=== PATIENT | male | born 1980 | race Caucasian/White ===

== ENCOUNTER → 2016-11-10 | Outpatient (REF) | payer MEDICARE ==
[~2016-11-10] MED LIST: /HALO5TAB PO; ABIL15TA OR; ABIL5TAB OR; ALLE25CA OR; ANEX7.5T PO; BENZ1TA PO; CELE40TA PO; COGE1INJ PO; DEPA1TAB3 PO; EPSOM SALT TOP; HALO10TA PO; HALO10TA4 OR; HALO2TA PO; HYDR-2808 PO; KLON0.5T PO; NEOSPORIN TOP; NO HISTORICAL MEDS; OLAN10TA2 PO; OLAN20TA PO; PAXI20TA OR; RISP2TAB30 PO; SILVADENE TOP; TRAZ50TA2 PO; TRAZO50TA PO; ZOLO20CO PO; ZYPR10TA OR; ZYPR10TA PO; no meds
[2016-11-11 11:00] LABS: AMPHETAMINES URINE REFLEX NEGATIVE (NEGATIVE); BARBITURATES URINE REFLEX NEGATIVE (NEGATIVE); BENZODIAZEPINES URINE REFLEX NEGATIVE (NEGATIVE)
[2016-11-11 11:01] LABS: COCAINE METABOLITE URINE REFLE NEGATIVE (NEGATIVE); CONTROL LINE INT CTR LINE PRESENT; METHADONE URINE REFLEX NEGATIVE (NEGATIVE); OPIATES URINE REFLEX NEGATIVE (NEGATIVE); TRICYCLIC ANTIDEPRESS UR REFL NEGATIVE (NEGATIVE)
== END ==
LOC: M LAB REF 10:26
PROVIDERS: ATTEND Psychiatry & Neurology Psychiatry
DX: Z02.83 Encounter for blood-alcohol and blood-drug test (principal); Z79.899 Other long term (current) drug therapy
CPT/HCPCS: 80306; G0480

== ENCOUNTER 2017-01-31 15:31 | Inpatient (IN) | payer MEDICARE ==
[~2017-01-31] VITALS: Ht 157.5 cm; Wt 56.6 kg
[2017-01-31] MEDS ORDERED: diphenhydrAMINE INJ 50MG/ML VIAL (J1200) IM ONE (17:30)
[2017-01-31] MEDS ORDERED: LORazepam 2 MG/ML VIAL (J2060) IM ONE (17:30)
[2017-01-31] MEDS ORDERED: HALOPERIDOL 5 MG/ML VIAL (J1630) IM ONE (17:35)
[2017-01-31 17:37] LABS: MEAN CORPUSCULAR HEMOGLOBIN 34.3 pg (27.0-33.0); MEAN CORPUSCULAR HGB CONC 34.6 g/dl (32.0-36.5); WHITE BLOOD COUNT 11.9 K/mm3 (4.0-10.0)
[2017-01-31 18:11] LABS: ALBUMIN/GLOBULIN RATIO 0.77 (1.00-1.93); ALKALINE PHOSPHATASE 76 U/L (45-117); ALT/SGPT 39 U/L (12-78); ANION GAP 27 MEQ/L (8-16); AST/SGOT 39 U/L (15-37); BILIRUBIN,DIRECT 0.1 MG/DL (0.0-0.2); BILIRUBIN,TOTAL 0.4 MG/DL (0.2-1.0); BLOOD UREA NITROGEN 10 MG/DL (7-18); CALCIUM LEVEL 8.5 MG/DL (8.5-10.1); CARBON DIOXIDE LEVEL 12 MEQ/L (21-32); CHLORIDE LEVEL 102 MEQ/L (98-107); CREATININE FOR GFR 1.13 MG/DL (0.70-1.30); GLOMERULAR FILTRATION RATE > 60.0 (>60); GLUCOSE, FASTING 133 MG/DL (70-105); POTASSIUM SERUM 3.1 MEQ/L (3.5-5.1); SODIUM LEVEL 141 MEQ/L (136-145); TOTAL PROTEIN 9.2 GM/DL (6.4-8.2)
[2017-01-31] MEDS ORDERED: POTASSIUM CHLORIDE 10 MEQ SR TABLET PO ONE (19:00)
[2017-02-01 05:53] LABS: METHADONE URINE NEGATIVE (NEGATIVE)
[2017-02-01] MEDS ORDERED: risperiDONE 2 MG TAB PO ONE (10:45)
[2017-02-01] MEDS ORDERED: MOM 30ML SUSPENSION UDC PO PRN (14:15)
[2017-02-01] MEDS ORDERED: MAALOX 30 ML SUSP *UDC PO PRN (14:15)
[2017-02-01 16:47] VITALS: BP 120/81
[2017-02-01 17:35] LABS: MEAN CORPUSCULAR HEMOGLOBIN 33.3 pg (27.0-33.0); MEAN CORPUSCULAR HGB CONC 34.7 g/dl (32.0-36.5); RED CELL DISTRIBUTION WIDTH 11.7 % (11.5-14.5); WHITE BLOOD COUNT 6.8 K/mm3 (4.0-10.0)
[2017-02-01] MEDS: NICOTINE 21MG/24HR 1 EA TRANSDERMAL TD SCH (17:52)
[2017-02-01] MEDS: traZODone 50 MG TAB PO PRN (22:13)
[2017-02-01] MEDS: risperiDONE 2 MG TAB PO SCH (22:13)
[2017-02-02 06:27] VITALS: BP 137/69
[2017-02-02 08:08] LABS: MEAN CORPUSCULAR HEMOGLOBIN 32.4 pg (27.0-33.0); MEAN CORPUSCULAR HGB CONC 34.4 g/dl (32.0-36.5); MEAN CORPUSCULAR VOLUME 94.2 fl (80.0-96.0); RED CELL DISTRIBUTION WIDTH 11.9 % (11.5-14.5); WHITE BLOOD COUNT 6.1 K/mm3 (4.0-10.0)
[2017-02-02] MEDS: risperiDONE 2 MG TAB PO SCH (08:13)
[2017-02-02] MEDS: NICOTINE 21MG/24HR 1 EA TRANSDERMAL TD SCH (08:14)
[2017-02-02 08:24] LABS: ALBUMIN 3.5 GM/DL (3.2-5.2); ALBUMIN/GLOBULIN RATIO 0.85 (1.00-1.93); ALKALINE PHOSPHATASE 59 U/L (45-117); ALT/SGPT 41 U/L (12-78); ANION GAP 10 MEQ/L (8-16); AST/SGOT 90 U/L (15-37); BILIRUBIN,TOTAL 0.9 MG/DL (0.2-1.0); BLOOD UREA NITROGEN 11 MG/DL (7-18); CALCIUM LEVEL 8.5 MG/DL (8.5-10.1); CARBON DIOXIDE LEVEL 23 MEQ/L (21-32); CHLORIDE LEVEL 102 MEQ/L (98-107); CREATININE FOR GFR 1.05 MG/DL (0.70-1.30); GLOMERULAR FILTRATION RATE > 60.0 (>60); GLUCOSE, FASTING 155 MG/DL (70-105); POTASSIUM SERUM 4.1 MEQ/L (3.5-5.1); SODIUM LEVEL 135 MEQ/L (136-145); TOTAL PROTEIN 7.6 GM/DL (6.4-8.2)
[2017-02-02] MEDS ORDERED: LORazepam 2 MG TAB PO PRN (15:00)
[2017-02-02] MEDS: THIAMINE 100 MG TAB PO SCH ×2 (15:09→20:02)
[2017-02-02] MEDS: FOLIC ACID 1 MG TAB PO SCH (15:09)
[2017-02-02] MEDS: MULTIVITAMINS/MINERALS THERAP 1 TAB PO SCH (15:09)
[2017-02-02] MEDS: PALIPERIDONE 3 MG ER TAB (INVEGA) PO SCH (15:09)
[2017-02-02 15:47] VITALS: BP 133/82
--- NOTE | 2017-02-02 16:37 | HPEPDOC ---
[facility] History & Physical History and Physical DATE OF ADMISSION: February 01, 2017 at 14:33 LEGAL STATUS AT ADMISSION: 9.39 CHIEF COMPLAINT: "I don't know why here" HISTORY OF THE PRESENT ILLNESS: The patient 36-year-old man with a long history of chronic paranoid schizophrenia presents to [facility] after being called on a pickup order by his mother due to concerns that he was threatening, religiously preoccupied and talking to himself. When he was brought in by the [place] [employer] he was found to be highly intoxicated with alcohol with a blood alcohol level 0.25. He was additionally noted to be fairly aggressive and difficult to manage. He expressed paranoid ideation that people are out to get him and that he had been found to not be taking his risperidone. He additionally had missed 2 appointments with his outpatient provider in the last couple weeks. Reports from his mother indicate that he has been falling in terms of his compliance towards medications and outpatient appointments. When the patient was met with today he described that he did not have "any symptoms" but appeared to be very reserved and suspicious. After some empathetic listening he described that he felt at times paranoid during the if he were to "sweat in a certain way" that that would condone that there was some form of "witchcraft" going on. He described that at times he felt as though people were out to get him and that this caused him great distress. He described the risperidone had been helping him recently and he had stopped taking it. He described that he lived with his mother primarily relied on them. He stated that he did want to have some time away from his mother and sister as he felt "stressed" and described that he wanted to "get off marijuana" feeling that this had an effect on his admission. PSYCHIATRIC ROS: The patient was to suspicious and guarded to engage in complete and comprehensive review of psychiatric symptoms PAST PSYCHIATRIC HISTORY: Prior Psychiatric Diagnosis: Paranoid chronic schizophrenia Previous admissions: Multiple with last admission March 2015 for psychosis Current Medications: Risperidone 2 mg twice a day Suicide attempts: Unknown Psychotropic Medication History: Per chart has been tried on, ziprasidone, Paxil , Abilify, Zyprexa, Depakote and number of other medications. The patient is unable to contribute to the list as he states that he "can't remember". He describes that he did remember his trial Paxil and found that it made his anxiety worse. ALLERGIES: Please see below. FAMILY PSYCHIATRIC HISTORY: Reportedly his uncle has chronic schizophrenia as well SOCIAL HISTORY: Early Relations:/development: No indications of a particular tumultuous childhood -sibling order: Unknown -Paternal relationships: Described as "good relationships" in previous admissions Education: High school dropout either in the 11th a 12 grade by report Occupational: Unknown but currently is on disability Legal: Has been in penitentiary/intermediate for 4 months in the past Martial: Unknown Economic: Subsists on Social Security disability but is unaware of how much she makes Supports: Currently lives with his mother and sister in a "half way house", that they reportedly purchased Abuse/trauma: Unknown SUBSTANCE ABUSE HISTORY: The patient has noted history with nicotine, cannabis and alcohol abuse to relatively severe degrees. He carries both cannabis, nicotine and alcohol use disorders and previous diagnoses. Is unclear how often he uses the substances as the patient is a poor historian MEDICAL HISTORY: reportedly has no chronic medical conditions MENTAL STATUS EXAMINATION: General: Disheveled Speech: Possibly of speech, monotone Thought processes: Guarded Thought content: Some paranoid ideation about "witches" Abstract reasoning, and computation: Impaired, concrete thinking Description of associations: Loose Description of abnormal or psychotic thoughts: Makes no threats towards himself or others. Some paranoid thoughts of "witches" and various persecutory beliefs such as that he would be punished if he were to step too many steps forward Judgment: Poor Insight: Poor Orientation: Appears to be alert and orientated to his surroundings Recent and remote memory: Patient describes having "memory trouble", but when reminded does appear to be else remember some details of his history Attention span and concentration: Intact Fund of knowledge: Poor Mood: "Fine" Affect: Blunted and flat PSYCHOMETRIC TESTING/RATING SCALES ON ADMISSION: BRIEF PSYCHIATRIC RATING SCALE: 1- Somatic concern Mild +3 2- Anxiety Mild +3 3- Depression Not present +1 4- Suicidality Not present +1 5- Guilt Very mild +2 6- Hostility Not present +1 7- Elated Mood Not present +1 8- Grandiosity Not present +1 9- Suspiciousness Moderately severe +5 10- Hallucinations Not present +1 11-Unusual thought content Moderately severe +5 12- Bizarre behaviour Moderate +4 13- Self-neglect Severe +6 14- Disorientation Not present +1 15- Conceptual disorganisation Severe +6 16- Blunted affect Very severe +7 17- Emotional withdrawal Very severe +7 18- Motor retardation Moderately severe +5 19- Tension Not present +1 20- Uncooperativeness Very mild +2 21- Excitement Not present +1 22- Distractibility Not present +1 23- Motor hyperactivity Not present +1 24- Mannerisms and posturing Not present +1 ? BPRS Score (out of 168 possible points) 67 DIAGNOSES: 1. Paranoid schizophrenia, acute decompensation 2. Alcohol, cannabis, nicotine use disorder, severe, in withdrawal ASSESSMENT: 36-year-old man who appears much older than his his stated age presents disheveled, psychotic and disorganized after reportedly several weeks of not complying with his outpatient treatment and medications. He appears now amenable to treatment and is much less aggressive and more cooperative. Is not clear as to how much the patient is laying and how much he is guarding. PROBLEM LIST: 1. Altered thoughts 2. Anxiety 3. poor compliance INITIAL TREATMENT PLAN: 1. Patient was admitted on a 9.39 legal status. 2. Complete history was obtained. 3. With patients permission, family will be contacted and database will be expanded. 4. Patients medication regimen will be reviewed and changed accordingly. -DC risperidone and start paliperidone 3 mg tomorrow due to noncompliance the patient is amenable to taking paliperidone Depo should he tolerate the oral medicines 5. Patient will be provided with protected environment. 6. Patient will be treated with individual, group, and milieu therapies. 7. Patient will receive supportive psych-education. 8. Discharge planning will commence immediately. 9. Outpatient follow-up treatment will be strongly recommended. 10. The initial treatment plan will focus initially on: Gathering more collateral information and acutely stabilizing the patient ESTIMATED LENGTH OF STAY: 5-7 DAYS. TIME SPENT COUNSELING AND COORDINATING INITIAL CARE: 50 minutes. Laboratory Data 24H Labs Laboratory Tests 2 02/02/17 07:39: Anion Gap 10, Glomerular Filtration Rate > 60.0, Blood Urea Nitrogen 11, Creatinine 1.05, Sodium Level 135L, Potassium Level 4.1#, Chloride Level 102, Carbon Dioxide Level 23, Calcium Level 8.5, Aspartate Amino Transf (AST/SGOT) 90H, Alanine Aminotransferase (ALT/SGPT) 41, Alkaline Phosphatase 59, Total Bilirubin 0.9#, Total Protein 7.6, Albumin 3.5, Albumin/Globulin Ratio 0.85L CBC/BMP Laboratory Tests 02/01/17 17:09 Red Blood Count 4.85, Mean Corpuscular Volume 96.0, Mean Corpuscular Hemoglobin 33.3 H, Mean Corpuscular Hemoglobin Concent 34.7, Red Cell Distribution Width 11.7 02/02/17 07:39 Red Blood Count 4.76, Mean Corpuscular Volume 94.2, Mean Corpuscular Hemoglobin 32.4, Mean Corpuscular Hemoglobin Concent 34.4, Red Cell Distribution Width 11.9 , Calcium Level 8.5, Aspartate Amino Transf (AST/SGOT) 90 H, Alanine Aminotransferase (ALT/SGPT) 41, Alkaline Phosphatase 59, Total Bilirubin 0.9 #, Total Protein 7.6, Albumin 3.5 Medications Scheduled Risperidone (Risperdal) 2 Mg Tab, 2 MG PO BID for psychosis, (Reported) Allergies Coded Allergies: Bupropion (Unverified Allergy, Unknown, 04/23/13) GME ATTESTATION My preceptor for this patient encounter was physically present in the building during the encounter and was fully available. As needed, all aspects of the patient interview, examination, medical decision making process, and medical care plan development were reviewed and approved by the preceptor. Preceptor is aware and concurs with the plan as stated in the body of this note and will attest to such by his/her cosignature. THEA EDWARDS DO February 02, 2017 16:37
[2017-02-02 18:00] VITALS: BP 121/71
[2017-02-02] MEDS: BACITRACIN OINT 30GM TOP SCH (22:33)
[2017-02-02] MEDS: CEPHALEXIN 500 MG CAP PO SCH (22:34)
--- NOTE | 2017-02-02 23:24 | HPE ---
DATE OF ADMISSION: 02/02/2017 HISTORY OF THE PRESENT ILLNESS: Please refer to psychiatric history and evaluation for further details on this admission. This examination and history is intended for medical issues which may need treatment, followup, or consult on this 36-year-old male. SOCIAL HISTORY: He is single, lives with his parents. He is disabled. He drinks at least 1-2 alcoholic drinks a day. He smokes 1 to 1-1/2 packs of cigarettes per day. He smokes marijuana 1-2 times a week. PAST MEDICAL HISTORY: Schizophrenia. Depression. PAST SURGICAL HISTORY: Surgical extraction foreign body from rectum times two. Cystoscopy. HOME MEDICATIONS: - Risperdal 2 mg by mouth twice a day ALLERGIES: WELLBUTRIN causes excessive drooling. LABORATORY STUDIES: White count on 01/31/2017 was 11.9, recheck on 02/01/2017 was 6.8. On 02/01/2017, hemoglobin and hematocrit was 16.2 and 46.6, platelets were 284. Sodium 135, potassium 4.1, chloride 102, CO2 23. AST was slightly elevated at 90, probably secondary to alcohol intake. Will recheck AST to ensure that it is decreasing. Urine was positive for cannabinoids. ETOH was 0.252. REVIEW OF SYSTEMS: Unremarkable other than complaint of an abrasion that was sore on his right lower leg. OBJECTIVE: A 36-year-old cooperative male in no acute distress. Height 62 inches, weight 54.7 kg, body mass index (BMI) 22.1. Blood pressure 120/81, pulse 89, respirations 16, temperature 97.5. The patient is alert and oriented times three. Pupils are equal and reactive to light. Extraocular movements intact. Cornea and sclerae clear. Conjunctivae is normal. No facial asymmetry. Pharynx: Tongue and gums pink and moist. Tongue is midline. Neck is supple without lymphadenopathy. No thyromegaly. No goiter. Carotids 2+ without bruits. Chest is clear to auscultation without wheeze or retractions. Heart is regular. Abdomen benign. Bowel sounds are positive. Genitalia/Rectal: Not done. Extremities: No cyanosis, clubbing or edema. Right lower anterior leg shows approximate 2 inch x 1/4 inch reddened abrasion. No drainage. Peripheral pulses equal and palpable bilaterally. IMPRESSION AND PLAN: Psychiatric plan per psychiatry. Abrasion right lower leg. Bacitracin twice a day and Keflex 500 mg by mouth three times a day for 10 days. Monitor for improvement or worsening of infection. Elevated liver function tests (LFTs). Recheck in the morning. Monitor for alcohol withdrawal.
[2017-02-03 07:39] VITALS: BP 145/101
[2017-02-03 07:57] LABS: ALBUMIN 4.1 GM/DL (3.2-5.2); ALBUMIN/GLOBULIN RATIO 1.05 (1.00-1.93); BILIRUBIN,DIRECT 0.2 MG/DL (0.0-0.2); BILIRUBIN,TOTAL 0.8 MG/DL (0.2-1.0)
[2017-02-03] MEDS: NICOTINE 21MG/24HR 1 EA TRANSDERMAL TD SCH (08:26)
[2017-02-03] MEDS: MULTIVITAMINS/MINERALS THERAP 1 TAB PO SCH (08:27)
[2017-02-03] MEDS: BACITRACIN OINT 30GM TOP SCH ×2 (08:27→20:01)
[2017-02-03] MEDS: THIAMINE 100 MG TAB PO SCH ×2 (08:28→20:01)
[2017-02-03] MEDS: CEPHALEXIN 500 MG CAP PO SCH ×3 (08:28→20:01)
[2017-02-03] MEDS: FOLIC ACID 1 MG TAB PO SCH (08:28)
[2017-02-03] MEDS: PALIPERIDONE 3 MG ER TAB (INVEGA) PO SCH (08:28)
--- NOTE | 2017-02-03 11:09 | IPNPDOC ---
[facility] Progress Note Progress Note DATE OF SERVICE: 02/03/17 HISTORY: INTERVAL HISTORY: Medication Side effects: He reports no medication side effects Behavior: He continues to be guarded, suspicious, not providing a lot of information. Group Attendance: Has attended some groups Psychiatric Symptom change: He still has paranoid delusions, guarded, suspicious , response to internal stimuli. VITAL SIGNS: See below. NEW TEST RESULTS: See below CURRENT MEDICATIONS: See below. MENTAL STATUS EXAMINATION: General: Alert, suspicious, uncooperative with interview, poor eye contact, looks older than stated age. Speech: Tangential, speaks in broken sentences, not goal-directed. Thought processes: Irrational, incoherent not goal-directed Thought content: Negative for suicidal ideations, negative for homicidal ideations positive for delusional thoughts paranoid type. Response to internal stimuli, most likely due to auditory hallucinations. Abstract reasoning, and computation: Unable to assess due to patient's illness. Description of associations: Loose Description of abnormal or psychotic thoughts: Delusional, paranoid thoughts. Internally preoccupied most likely has auditory hallucinations. Judgment: Poor Insight: Very poor. He states schizophrenia and doesn't exist, "all of this is pure bull st, excuse me ma'm" Orientation: Not oriented to time and date, but oriented to place and person Recent and remote memory: Impaired due to mental illness. Will reassess when patient starts responding to medication. Attention span and concentration: Poor Fund of knowledge: Unable to assess Mood: Irritable Affect: Labile, irritable DIAGNOSES: 1. Schizophrenia, paranoid type. 2. Alcohol use disorder. 3. And marijuana abuse. ASSESSMENT: Patient got started yesterday on him then to 3 mg by mouth daily and he is on alcohol withdrawal protocol. If he responds to invade he will be able to have his medication IM and he wants decompensate again for medication noncompliance. [employer] will be direct and coworkers patient gaining insight into his illness, once she is more stable. MANAGEMENT PLAN: Medications: Invega 3 mg by mouth daily, alcohol withdrawal protocol. Psychotherapy: Poor attendance, keeps to himself, doesn't socialize or interact with peers or staff due to mental illness. Once more stable he will be encouraged to attend groups. Social: Poor social interaction, very withdrawn. Once he becomes more stable he will be encouraged to be more interactive Misc: --- Disposition: We will continue with current treatment as inpatient mental health unit until stabilized. TIME SPENT: 20 minutes. VITAL SIGNS: See below. NEW TEST RESULTS: . CURRENT MEDICATIONS: See below. MENTAL STATUS EXAMINATION: Patient is a -year old male, who is . Speech: Is . Language skills are . Thought processes including: . Thought content: . Abstract reasoning, and computation: . Description of associations: . Description of abnormal or psychotic thoughts: . Judgment: . Insight: [very limited, good, fair. poor]. Orientation: . Recent and remote memory: . Attention span and concentration: . Language: . Fund of knowledge: . Mood: . Affect: . DIAGNOSES: 1. . 2. . 3. . ASSESSMENT: MANAGEMENT PLAN: . TIME SPENT: minutes. Vital Signs Vital Signs Date Time Temp Pulse Resp B/P (MAP) Pulse Ox O2 Delivery O2 Flow Rate FiO2 02/03/17 07:39 95.9 97 18 145/101 (116) 02/01/17 16:47 94 Room Air Laboratory Data 24H Labs Laboratory Tests 2 02/03/17 07:14: Aspartate Amino Transf (AST/SGOT) 107H, Alanine Aminotransferase (ALT/SGPT) 48, Alkaline Phosphatase 70, Total Bilirubin 0.8, Direct Bilirubin 0.2, Total Protein 8.0, Albumin 4.1, Albumin/Globulin Ratio 1.05 Current Medications Current Medications Acetaminophen (Tylenol Tab) 650 mg Q6HP PRN PO HEADACHE or DISCOMFORT; Start at 14:15; Stop 03/03/17 at 14:14 Al Hydrox/Mg Hydrox/Simethicone (Mylanta) 30 ml Q4HP PRN PO HEARTBURN/ INDIGESTION; Start 02/01/17 at 14:15; Stop 03/03/17 at 14:14 Bacitracin (Bacitracin Oint) apply to abrasion ri... BID TOP Last administered on 02/03/17 08:27; Start 02/02/17 at 21:00; Stop 03/04/17 at 20:59 Cephalexin Monohydrate (Keflex) 500 mg TID PO Last administered on 02/03/17 08: 28; Start 02/02/17 at 21:00; Stop 02/09/17 at 20:59 Folic Acid (Folic Acid) 1 mg DAILY PO Last administered on 02/03/17 08:28; Start 02/02/17 at 09:00; Stop 03/04/17 at 08:59 Home Med (Med Rec Complete!) ASDIRECTED XX ; Start 02/01/17 at 14:00; Stop at 14:00; Status DC Lorazepam (Ativan) 2 mg ASDIRECTED PRN PO SEE PROTOCOL; Start 02/02/17 at 15:00 ; Stop 02/09/17 at 14:59 Magnesium Hydroxide (Milk Of Magnesia) 30 ml DAILYPRN PRN PO CONSTIPATION; Start 02/01/17 at 14:15; Stop 03/03/17 at 14:14 Multivitamins (Theragram-M) 1 tab DAILY PO Last administered on 02/03/17 08:27 ; Start 02/02/17 at 09:00; Stop 03/04/17 at 08:59 Nicotine (Nicoderm Cq 21mg) 1 patch DAILY TD Last administered on 02/03/17 08: 26; Start 02/01/17 at 09:00; Stop 03/03/17 at 08:59 Paliperidone (Invega) 3 mg QAM PO Last administered on 02/03/17 08:28; Start at 09:00; Stop 03/04/17 at 08:59 Risperidone (RisperDAL) 2 mg BID PO Last administered on 02/02/17 08:13; Start 02/01/17 at 21:00; Stop 02/02/17 at 14:55; Status DC Thiamine HCl (Thiamine HCl) 100 mg BID PO Last administered on 02/03/17 08:28; Start 02/02/17 at 09:00; Stop 02/04/17 at 23:00 Trazodone HCl (Desyrel) 50 mg QHSP PRN PO INSOMNIA Last administered on 22:13; Start 02/01/17 at 14:15; Stop 03/03/17 at 14:14 Allergies Coded Allergies: Bupropion (Unverified Allergy, Unknown, 04/23/13) CAMMY GEORGE MD February 03, 2017 11:09
[2017-02-03 17:52] VITALS: BP 124/74
[2017-02-03 18:00] VITALS: BP 124/76
[2017-02-04 06:30] VITALS: BP 124/80
[2017-02-04 07:45] VITALS: BP 119/73
[2017-02-04] MEDS: BACITRACIN OINT 30GM TOP SCH ×2 (09:33→20:32)
[2017-02-04] MEDS: MULTIVITAMINS/MINERALS THERAP 1 TAB PO SCH (09:33)
[2017-02-04] MEDS: THIAMINE 100 MG TAB PO SCH ×2 (09:33→20:32)
[2017-02-04] MEDS: PALIPERIDONE 3 MG ER TAB (INVEGA) PO SCH (09:33)
[2017-02-04] MEDS: FOLIC ACID 1 MG TAB PO SCH (09:33)
[2017-02-04] MEDS: CEPHALEXIN 500 MG CAP PO SCH ×3 (09:33→20:32)
[2017-02-04] MEDS: NICOTINE 21MG/24HR 1 EA TRANSDERMAL TD SCH (09:34)
[2017-02-04 18:00] VITALS: BP 116/70
--- NOTE | 2017-02-04 19:34 | IPNPDOC ---
[facility] Progress Note Progress Note DATE OF SERVICE: 02/04/17 HISTORY: Evaluated 36 year old male with history of schizophrenia and alcohol abuse disorder who has been receiving treatment with Invega 3 mgs. Po QD and has not reported medication side effects. He was taken to the emergency room because his mother called 911 because he was drinking too much alcohol and had stopped taking his medications. He became aggressive and agitated at the Emergency Department and he had to be restrained. Today he said hes feeling better, he "is able to see that life is beautiful". Reported good sleep, fair appetite, and admitted he had being non compliant with medication. VITAL SIGNS: See below. NEW TEST RESULTS: None CURRENT MEDICATIONS: See below. MENTAL STATUS EXAMINATION: Patient is a 36-year old male, who is alert, with good eye contact, calmer, less guarded. Speech: Is normal. Language skills are fair. Thought processes including: Less tangential and less disorganized. Thought content: Negative suicidal ideation, negative homicidal ideation, denies auditory or visual hallucinations but at times he seems internally preoccupied. Abstract reasoning, and computation: Poor. Description of associations: Less loose. Description of abnormal or psychotic thoughts: Paranoid delusions.Posible auditory hallucinations Judgment: Poor Insight: Poor. Orientation: Partially oriented. Only to place and person. Recent and remote memory: Poor. Attention span and concentration: Poor. Language: poverty of language. Fund of knowledge: Not assessed. Mood: "I feel better, now I understand things better". Affect: Constricted. DIAGNOSES: 1. Schizophrenia. 2. Alcohol use disorder. ASSESSMENT:Patient shows some improvement, he is less paranoid, less angry. He seems to be getting some insight into his illness. MANAGEMENT PLAN: Continue with current treatment TIME SPENT: 15 minutes. Vital Signs Vital Signs Date Time Temp Pulse Resp B/P (MAP) Pulse Ox O2 Delivery O2 Flow Rate FiO2 02/04/17 07:45 92 119/73 02/04/17 06:30 97.8 22 02/01/17 16:47 94 Room Air Current Medications Current Medications Acetaminophen (Tylenol Tab) 650 mg Q6HP PRN PO HEADACHE or DISCOMFORT; Start at 14:15; Stop 03/03/17 at 14:14 Al Hydrox/Mg Hydrox/Simethicone (Mylanta) 30 ml Q4HP PRN PO HEARTBURN/ INDIGESTION; Start 02/01/17 at 14:15; Stop 03/03/17 at 14:14 Bacitracin (Bacitracin Oint) apply to abrasion ri... BID TOP Last administered on 02/04/17 09:33; Start 02/02/17 at 21:00; Stop 03/04/17 at 20:59 Cephalexin Monohydrate (Keflex) 500 mg TID PO Last administered on 02/04/17 16: 19; Start 02/02/17 at 21:00; Stop 02/09/17 at 20:59 Folic Acid (Folic Acid) 1 mg DAILY PO Last administered on 02/04/17 09:33; Start 02/02/17 at 09:00; Stop 03/04/17 at 08:59 Home Med (Med Rec Complete!) ASDIRECTED XX ; Start 02/01/17 at 14:00; Stop at 14:00; Status DC Lorazepam (Ativan) 2 mg ASDIRECTED PRN PO SEE PROTOCOL; Start 02/02/17 at 15:00 ; Stop 02/09/17 at 14:59 Magnesium Hydroxide (Milk Of Magnesia) 30 ml DAILYPRN PRN PO CONSTIPATION; Start 02/01/17 at 14:15; Stop 03/03/17 at 14:14 Multivitamins (Theragram-M) 1 tab DAILY PO Last administered on 02/04/17 09:33 ; Start 02/02/17 at 09:00; Stop 03/04/17 at 08:59 Nicotine (Nicoderm Cq 21mg) 1 patch DAILY TD Last administered on 02/04/17 09: 34; Start 02/01/17 at 09:00; Stop 03/03/17 at 08:59 Paliperidone (Invega) 3 mg QAM PO Last administered on 02/04/17 09:33; Start at 09:00; Stop 03/04/17 at 08:59 Risperidone (RisperDAL) 2 mg BID PO Last administered on 02/02/17 08:13; Start 02/01/17 at 21:00; Stop 02/02/17 at 14:55; Status DC Thiamine HCl (Thiamine HCl) 100 mg BID PO Last administered on 02/04/17 09:33; Start 02/02/17 at 09:00; Stop 02/04/17 at 23:00 Trazodone HCl (Desyrel) 50 mg QHSP PRN PO INSOMNIA Last administered on t 22:13; Start 02/01/17 at 14:15; Stop 03/03/17 at 14:14 Allergies Coded Allergies: Bupropion (Unverified Allergy, Unknown, 04/23/13) CAMMY GEORGE MD February 04, 2017 19:34
[2017-02-04] MEDS: traZODone 50 MG TAB PO PRN (20:32)
[2017-02-05 06:37] VITALS: BP 118/70
[2017-02-05 07:09] LABS: ALBUMIN 3.8 GM/DL (3.2-5.2); BILIRUBIN,DIRECT 0.2 MG/DL (0.0-0.2); BILIRUBIN,TOTAL 0.5 MG/DL (0.2-1.0); TOTAL PROTEIN 7.6 GM/DL (6.4-8.2)
[2017-02-05] MEDS: CEPHALEXIN 500 MG CAP PO SCH ×3 (08:12→20:05)
[2017-02-05] MEDS: PALIPERIDONE 3 MG ER TAB (INVEGA) PO SCH (08:12)
[2017-02-05] MEDS: NICOTINE 21MG/24HR 1 EA TRANSDERMAL TD SCH (08:12)
[2017-02-05] MEDS: FOLIC ACID 1 MG TAB PO SCH (08:12)
[2017-02-05] MEDS: MULTIVITAMINS/MINERALS THERAP 1 TAB PO SCH (08:12)
[2017-02-05] MEDS: BACITRACIN OINT 30GM TOP SCH ×2 (08:13→20:04)
[2017-02-05 09:48] VITALS: BP 127/78
--- NOTE | 2017-02-05 15:54 | MHIPNPDOC ---
[facility] Progress Note Progress Note DATE OF SERVICE: 02/05/17 INTERVAL HISTORY: Medication Side effects: Patient reports no side effects such as tremors, muscle stiffness or other side effects from paliperidone Behavior/events: Has been generally reclusive to his room and odd Group Attendance: Has attended groups intermittently Psychiatric Symptoms: The patient described that "things were going on" but refused to elaborate. He when asked about his sister said that his sister was "" after just talking about how he had attempted to call her. He appeared to be responding to internal stimuli and became fairly anxious and certainly walked out of the room ending the interview. VITAL SIGNS: See below. NEW TEST RESULTS: See below CURRENT MEDICATIONS: See below. MENTAL STATUS EXAMINATION: General: Disheveled Speech: Sparse few words Thought processes: Disorganized Thought content: Perseveration on anxiety and paranoid thoughts that his sister was Abstract reasoning, and computation: Impaired Description of associations: Loose Description of abnormal or psychotic thoughts: Appears endorse bizarre ideation that his sister he is to spoken about his "". He does not answer any further questions but makes no threats towards himself or others. He appears to be responding to internal stimuli. Judgment: Poor Insight: Poor Orientation: Alert and oriented to surroundings Recent and remote memory: Appears intact Attention span and concentration: Distracted by internal stimuli Fund of knowledge: Poor Mood: "Fine" Affect: Blunted/flat DIAGNOSES: 1. Paranoid schizophrenia, acute decompensation 2. Alcohol, cannabis use disorder, severe, in controlled setting. ASSESSMENT: Patient appears to have some stability on the paliperidone and has not become acutely worse since the change however he will likely need a higher dose in order to have adequate control of his psychotic symptoms MANAGEMENT PLAN: Medications: Increase paliperidone 6 mg daily Psychotherapy: Encourage group attendance Social: Social work attempting and contact with family for further collateral information Misc: Is receiving Keflex for arm sores Disposition: The patient will need of further inpatient stay to address severe psychotic symptoms. TIME SPENT: 15 minutes. Vital Signs Vital Signs Date Time Temp Pulse Resp B/P (MAP) Pulse Ox O2 Delivery O2 Flow Rate FiO2 02/05/17 09:48 81 127/78 02/05/17 06:37 97.6 16 02/01/17 16:47 94 Room Air Laboratory Data 24H Labs Laboratory Tests 2 02/05/17 06:24: Aspartate Amino Transf (AST/SGOT) 186H, Alanine Aminotransferase (ALT/SGPT) 60, Alkaline Phosphatase 62, Total Bilirubin 0.5, Direct Bilirubin 0.2, Total Protein 7.6, Albumin 3.8, Albumin/Globulin Ratio 1.00 Current Medications Current Medications Acetaminophen (Tylenol Tab) 650 mg Q6HP PRN PO HEADACHE or DISCOMFORT; Start at 14:15; Stop 03/03/17 at 14:14 Al Hydrox/Mg Hydrox/Simethicone (Mylanta) 30 ml Q4HP PRN PO HEARTBURN/ INDIGESTION; Start 02/01/17 at 14:15; Stop 03/03/17 at 14:14 Bacitracin (Bacitracin Oint) apply to abrasion ri... BID TOP Last administered on 02/04/17 20:32; Start 02/02/17 at 21:00; Stop 03/04/17 at 20:59 Cephalexin Monohydrate (Keflex) 500 mg TID PO Last administered on 02/05/17 08: 12; Start 02/02/17 at 21:00; Stop 02/09/17 at 20:59 Folic Acid (Folic Acid) 1 mg DAILY PO Last administered on 02/05/17 08:12; Start 02/02/17 at 09:00; Stop 03/04/17 at 08:59 Home Med (Med Rec Complete!) ASDIRECTED XX ; Start 02/01/17 at 14:00; Stop at 14:00; Status DC Lorazepam (Ativan) 2 mg ASDIRECTED PRN PO SEE PROTOCOL; Start 02/02/17 at 15:00 ; Stop 02/09/17 at 14:59 Magnesium Hydroxide (Milk Of Magnesia) 30 ml DAILYPRN PRN PO CONSTIPATION; Start 02/01/17 at 14:15; Stop 03/03/17 at 14:14 Multivitamins (Theragram-M) 1 tab DAILY PO Last administered on 02/05/17 08:12 ; Start 02/02/17 at 09:00; Stop 03/04/17 at 08:59 Nicotine (Nicoderm Cq 21mg) 1 patch DAILY TD Last administered on 02/05/17 08: 12; Start 02/01/17 at 09:00; Stop 03/03/17 at 08:59 Paliperidone (Invega) 3 mg QAM PO Last administered on 02/05/17 08:12; Start at 09:00; Stop 02/05/17 at 15:47; Status DC Paliperidone (Invega) 6 mg QAM PO ; Start 02/06/17 at 09:00; Stop 03/08/17 at 08: 59 Risperidone (RisperDAL) 2 mg BID PO Last administered on 02/02/17 08:13; Start 02/01/17 at 21:00; Stop 02/02/17 at 14:55; Status DC Thiamine HCl (Thiamine HCl) 100 mg BID PO Last administered on 02/04/17 20:32; Start 02/02/17 at 09:00; Stop 02/04/17 at 23:00; Status DC Trazodone HCl (Desyrel) 50 mg QHSP PRN PO INSOMNIA Last administered on 20:32; Start 02/01/17 at 14:15; Stop 03/03/17 at 14:14 Allergies Coded Allergies: Bupropion (Unverified Allergy, Unknown, 04/23/13) GME ATTESTATION My preceptor for this patient encounter was physically present in the building during the encounter and was fully available. As needed, all aspects of the patient interview, examination, medical decision making process, and medical care plan development were reviewed and approved by the preceptor. Preceptor is aware and concurs with the plan as stated in the body of this note and will attest to such by his/her cosignature. TEHA EDWARDS DO February 05, 2017 15:54
[2017-02-05] MEDS: ACETAMINOPHEN TAB 650MG DOSE (2X325MG) PO PRN (17:58)
[2017-02-05 18:00] VITALS: BP 121/68
[2017-02-05] MEDS: traZODone 50 MG TAB PO PRN (20:05)
[2017-02-06 05:53] VITALS: BP 142/81
[2017-02-06 06:43] VITALS: BP 142/81
[2017-02-06] MEDS: FOLIC ACID 1 MG TAB PO SCH (08:09)
[2017-02-06] MEDS: PALIPERIDONE 3 MG ER TAB (INVEGA) PO SCH (08:10)
[2017-02-06] MEDS: MULTIVITAMINS/MINERALS THERAP 1 TAB PO SCH (08:10)
[2017-02-06] MEDS: CEPHALEXIN 500 MG CAP PO SCH ×3 (08:11→21:22)
[2017-02-06] MEDS: ACETAMINOPHEN TAB 650MG DOSE (2X325MG) PO PRN ×2 (08:12→21:23)
[2017-02-06] MEDS: BACITRACIN OINT 30GM TOP SCH ×2 (08:13→21:00)
[2017-02-06] MEDS: NICOTINE 21MG/24HR 1 EA TRANSDERMAL TD SCH (08:14)
[2017-02-06 13:14] VITALS: BP 136/82
[2017-02-06 18:00] VITALS: BP 126/78
[2017-02-06] MEDS: traZODone 50 MG TAB PO PRN (21:22)
[2017-02-07 06:17] VITALS: BP 128/65
[2017-02-07] MEDS: NICOTINE 21MG/24HR 1 EA TRANSDERMAL TD SCH ×2 (08:14→15:31)
[2017-02-07] MEDS: BACITRACIN OINT 30GM TOP SCH ×2 (08:15→22:03)
[2017-02-07] MEDS: CEPHALEXIN 500 MG CAP PO SCH ×3 (08:19→22:02)
[2017-02-07] MEDS: MULTIVITAMINS/MINERALS THERAP 1 TAB PO SCH (08:19)
[2017-02-07] MEDS: PALIPERIDONE 3 MG ER TAB (INVEGA) PO SCH (08:19)
[2017-02-07] MEDS: FOLIC ACID 1 MG TAB PO SCH (08:19)
[2017-02-07 08:26] VITALS: BP 134/68
[2017-02-07 18:00] VITALS: BP 134/70
[2017-02-08 06:54] VITALS: BP 127/72
[2017-02-08] MEDS: CEPHALEXIN 500 MG CAP PO SCH ×3 (08:09→21:43)
[2017-02-08] MEDS: FOLIC ACID 1 MG TAB PO SCH (08:09)
[2017-02-08] MEDS: PALIPERIDONE 3 MG ER TAB (INVEGA) PO SCH (08:09)
[2017-02-08] MEDS: MULTIVITAMINS/MINERALS THERAP 1 TAB PO SCH (08:09)
[2017-02-08] MEDS: NICOTINE 21MG/24HR 1 EA TRANSDERMAL TD SCH (08:09)
[2017-02-08] MEDS: BACITRACIN OINT 30GM TOP SCH ×2 (08:10→21:00)
[2017-02-08 18:00] VITALS: BP 124/76
--- NOTE | 2017-02-08 21:25 | IPN ---
DATE: 02/08/2017 The patient reported today that he was feeling good, had slept well, had good appetite, denied suicidal ideation, denied homicidal ideation, denied delusional thoughts or auditory or visual hallucinations. When he was prompted to speak about his alcohol consumption, he said he did it to relax and when he was asked about the possibility of him going to Alcoholics Anonymous (AA) meetings, he replied that he did not have any transportation and he did not think that he would be able to do it. At that moment he became angry, but he was able to control his impulses and he asked when was he going to be leaving from the inpatient mental health unit. He was then redirected towards the alcohol consumption and the author of this document tried to explain to him that this was not helping him with his psychiatric problem. However, he did not take this well, got upset, and left the room in a polite way. He never became violent or aggressive, but that proves he does not want to address his alcohol abuse, which is highly contributing to his decompensation and his psychosis. He has been doing much better since he has been on antipsychotic medication, he is more sociable, less isolated, less paranoid, less suspicious. His mood is brighter and his affect is brighter as well. Will continue to follow him up and will try to address again the problem with alcohol and will try to help him to gain insight into this problem too. Will follow him up. BRAYDON
[2017-02-09 07:04] VITALS: BP 129/72
[2017-02-09] MEDS: CEPHALEXIN 500 MG CAP PO SCH ×3 (08:18→20:52)
[2017-02-09] MEDS: NICOTINE 21MG/24HR 1 EA TRANSDERMAL TD SCH (08:18)
[2017-02-09] MEDS: FOLIC ACID 1 MG TAB PO SCH (08:18)
[2017-02-09] MEDS: PALIPERIDONE 3 MG ER TAB (INVEGA) PO SCH (08:18)
[2017-02-09] MEDS: MULTIVITAMINS/MINERALS THERAP 1 TAB PO SCH (08:18)
[2017-02-09] MEDS: BACITRACIN OINT 30GM TOP SCH ×2 (08:20→20:53)
--- NOTE | 2017-02-09 11:36 | MHIPNPDOC ---
[facility] Progress Note Progress Note DATE OF SERVICE: 02/09/17 INTERVAL HISTORY: Medication Side effects: Denies Behavior: Less guarded, cooperative, not violent and not aggressive behavior Group Attendance: Attends some groups Psychiatric Symptom change: Less paranoid, less suspicious, brighter mood and affect VITAL SIGNS: See below. NEW TEST RESULTS: See below CURRENT MEDICATIONS: See below. MENTAL STATUS EXAMINATION: General: Alert, cooperative, laying in bed, good eye contact Speech: normal, not tangential Thought processes: More organized Thought content: Negative for suicidal ideations, negative for homicidal ideation, negative for auditory or visual hallucinations and negative for paranoid, persecutory delusions. Abstract reasoning, and computation: Poor Description of associations: No loose Description of abnormal or psychotic thoughts: Not present at this time Judgment: Improving Insight: Improving Orientation: Oriented 3 Recent and remote memory: Intact Attention span and concentration: Poor Fund of knowledge: Fair Mood: "That's great that I am going to be leaving soon" Affect: Less depressed DIAGNOSES: 1. Schizophrenia. 2. Alcohol use disorder. 3. Major depressive disorder. ASSESSMENT: Patient has improved, although he doesn't want to acknowledge that he has a drinking problem. He has been advised on going to AA meetings, to control his alcohol use. His mood and affect are brighter and he is not delusional at this time. MANAGEMENT PLAN: Medications: Continue with current medications Psychotherapy: Will continue to attend groups Social: Will encourage him to engage more with his peers Misc: None Disposition: If patient continues to be stable, he will be discharged on , and he will continue with outpatient treatment. TIME SPENT: 15 minutes. Vital Signs Vital Signs Date Time Temp Pulse Resp B/P (MAP) Pulse Ox O2 Delivery O2 Flow Rate FiO2 02/09/17 07:04 97.3 78 16 129/72 (91) 02/06/17 05:53 Room Air Current Medications Current Medications Acetaminophen (Tylenol Tab) 650 mg Q6HP PRN PO HEADACHE or DISCOMFORT Last administered on 02/06/17t 21:23; Start 02/01/17 at 14:15; Stop 03/03/17 at 14:14 Al Hydrox/Mg Hydrox/Simethicone (Mylanta) 30 ml Q4HP PRN PO HEARTBURN/ INDIGESTION; Start 02/01/17 at 14:15; Stop 03/03/17 at 14:14 Bacitracin (Bacitracin Oint) apply to abrasion ri... BID TOP Last administered on 02/09/17 08:20; Start 02/02/17 at 21:00; Stop 03/04/17 at 20:59 Cephalexin Monohydrate (Keflex) 500 mg TID PO Last administered on 02/09/17 08: 18; Start 02/02/17 at 21:00; Stop 02/15/17 at 20:59 Folic Acid (Folic Acid) 1 mg DAILY PO Last administered on 02/09/17 08:18; Start 02/02/17 at 09:00; Stop 03/04/17 at 08:59 Home Med (Med Rec Complete!) ASDIRECTED XX ; Start 02/01/17 at 14:00; Stop at 14:00; Status DC Lorazepam (Ativan) 2 mg ASDIRECTED PRN PO SEE PROTOCOL; Start 02/02/17 at 15:00 ; Stop 02/15/17 at 14:59 Magnesium Hydroxide (Milk Of Magnesia) 30 ml DAILYPRN PRN PO CONSTIPATION; Start 02/01/17 at 14:15; Stop 03/03/17 at 14:14 Multivitamins (Theragram-M) 1 tab DAILY PO Last administered on 02/09/17 08:18 ; Start 02/02/17 at 09:00; Stop 03/04/17 at 08:59 Nicotine (Nicoderm Cq 21mg) 1 patch DAILY TD Last administered on 02/09/17 08: 18; Start 02/01/17 at 09:00; Stop 03/03/17 at 08:59 Paliperidone (Invega) 3 mg QAM PO Last administered on 02/05/17 08:12; Start at 09:00; Stop 02/05/17 at 15:47; Status DC Paliperidone (Invega) 6 mg QAM PO Last administered on 02/09/17 08:18; Start at 09:00; Stop 03/08/17 at 08:59 Risperidone (RisperDAL) 2 mg BID PO Last administered on 02/02/17 08:13; Start 02/01/17 at 21:00; Stop 02/02/17 at 14:55; Status DC Thiamine HCl (Thiamine HCl) 100 mg BID PO Last administered on 02/04/17 20:32; Start 02/02/17 at 09:00; Stop 02/04/17 at 23:00; Status DC Trazodone HCl (Desyrel) 50 mg QHSP PRN PO INSOMNIA Last administered on 21:22; Start 02/01/17 at 14:15; Stop 03/03/17 at 14:14 Allergies Coded Allergies: Bupropion (Unverified Allergy, Unknown, 04/23/13) CAMMY GEORGE MD February 09, 2017 11:36
[2017-02-09 18:26] VITALS: BP 105/69
[2017-02-09] MEDS: traZODone 50 MG TAB PO PRN (20:52)
[2017-02-10 06:06] VITALS: BP 111/71
[2017-02-10] MEDS: PALIPERIDONE 3 MG ER TAB (INVEGA) PO SCH (08:49)
[2017-02-10] MEDS: NICOTINE 21MG/24HR 1 EA TRANSDERMAL TD SCH (08:49)
[2017-02-10] MEDS: BACITRACIN OINT 30GM TOP SCH (08:49)
[2017-02-10] MEDS: FOLIC ACID 1 MG TAB PO SCH (08:49)
[2017-02-10] MEDS: MULTIVITAMINS/MINERALS THERAP 1 TAB PO SCH (08:49)
[2017-02-10] MEDS: CEPHALEXIN 500 MG CAP PO SCH (08:50)
[2017-02-10] MEDS ORDERED: PALI1TAB2 PO (09:50)
[2017-02-10] MEDS ORDERED: TRAZO50TA PO (09:50)
--- NOTE | 2017-02-10 12:00 | MHDSPDOC ---
[facility] Discharge Summary Discharge Summary DATE OF ADMISSION: February 01, 2017 at 14:33 DATE OF DISCHARGE: February 10, 2017 at 10:15 DISCHARGE DIAGNOSES: 1. Schizophrenia, paranoid type 2. Alcohol use disorder. REASON FOR ADMISSION: Medication noncompliance, acute psychosis, aggressive behavior against family members. CONSULTANTS INVOLVED: None TREATMENT AND PROGRESS ON THE UNIT : The patient improved once he got stabilized on paliperidone 6 mg by mouth daily. He understands that he has to be compliant with medication in order to have quality of life but he doesn't want to admit that he has a alcohol use disorder and that he needs help by attending AA meetings. He was never aggressive in the unit, was compliant with rules and regulations, never refused medications and attended some groups. He improved, and he was not psychotic, not suicidal and not homicidal up on discharge. He is not a danger to himself or others at this time. HOSPITAL COURSE: As above DISCHARGE ASSESSMENT: He is stable to go back home with his family. He will need support from relatives to stop drinking but apparently some family members also have this type of problem. MENTAL STATUS EXAMINATION ON DISCHARGE: Patient is a 36-year old male, who is alert, cooperative with interview, good eye contact. Speech is and normal. Language skills are normal. Thought processes including: His thought process is not disorganized at this time, he is not tangential. Thought content: Negative for homicidal ideation, negative for suicidal ideation , negative for psychotic thoughts and negative for auditory and visual hallucinations. Abstract reasoning, and computation: Poor. Description of associations: Not loose. Description of abnormal or psychotic thoughts: Not present at this time. Judgment: Improved. Insight: Improved. Orientation to oriented 3. Recent and remote memory: Improved. Attention span and concentration: Fair. Language: Normal. Fund of knowledge: Fair. Mood: "I feel better because I know that I'm going home.". Affect: Brighter, less guarded. MEDICATIONS ON DISCHARGE: - Paliperidone 6 mgs. by mouth every morning for psychosis/schizophrenia -Trazodone 50 mg by mouth daily at bedtime for insomnia PLAN/FOLLOWUP ARRANGEMENTS: Will continue treatment as an outpatient. The amount of time spent in the coordination of care for this patient was approximately 30 minutes. Vital Signs/I&Os Vital Signs Date Time Temp Pulse Resp B/P (MAP) Pulse Ox O2 Delivery O2 Flow Rate FiO2 02/10/17 06:06 97.6 89 16 111/71 (84) Room Air Medications Scheduled Paliperidone (Paliperidone ER) 3 Mg Tab, 6 MG PO QAM for Schizophrenia for 7 Days, #14 Scheduled PRN Trazodone HCl (Trazodone HCl) 50 Mg Tab, 50 MG PO QHSP PRN for INSOMNIA for 10 Days, #10 Allergies Coded Allergies: Bupropion (Unverified Allergy, Unknown, 04/23/13) CAMMY GEORGE MD February 10, 2017 12:00
== END 2017-02-10 10:15 | disposition home or self-care (01) | DRG 885 ==
LOC: M ED 02-01 08:26 → M ED INP 02-01 14:33 → M PSY 02-01 15:56
PROVIDERS: ADMIT Psychiatry & Neurology Child & Adolescent Psychiatry; ATTEND Psychiatry & Neurology Psychiatry
DX: F20.0 Paranoid schizophrenia (principal); F10.239 Alcohol dependence with withdrawal, unspecified; F10.229 Alcohol dependence with intoxication, unspecified; F17.210 Nicotine dependence, cigarettes, uncomplicated; F12.20 Cannabis dependence, uncomplicated; Z91.14 Patient's other noncompliance with medication regimen; Z91.19 Patient's noncompliance with other medical treatment and regimen; Z88.8 Allergy status to other drugs, medicaments and biological substances; Z79.899 Other long term (current) drug therapy; Z81.8 Family history of other mental and behavioral disorders

== ENCOUNTER 2017-02-17 20:57 | Inpatient (IN) | payer MEDICARE ==
[~2017-02-17] VITALS: Ht 157.5 cm; Wt 55.8 kg
[~2017-02-17 20:57] MED LIST changes: +PALI1TAB2 PO
[2017-02-17 22:00] LABS: MEAN CORPUSCULAR HEMOGLOBIN 33.7 pg (27.0-33.0); MEAN CORPUSCULAR HGB CONC 35.9 g/dl (32.0-36.5); MEAN CORPUSCULAR VOLUME 93.9 fl (80.0-96.0); RED CELL DISTRIBUTION WIDTH 11.6 % (11.5-14.5); WHITE BLOOD COUNT 7.3 K/mm3 (4.0-10.0)
[2017-02-17 22:32] LABS: METHADONE URINE NEGATIVE (NEGATIVE)
[2017-02-17 22:41] LABS: ALBUMIN 3.8 GM/DL (3.2-5.2); ALBUMIN/GLOBULIN RATIO 0.84 (1.00-1.93); ALKALINE PHOSPHATASE 84 U/L (45-117); ALT/SGPT 41 U/L (12-78); ANION GAP 11 MEQ/L (8-16); AST/SGOT 39 U/L (15-37); BILIRUBIN,TOTAL 0.2 MG/DL (0.2-1.0); BLOOD UREA NITROGEN 7 MG/DL (7-18); CALCIUM LEVEL 8.7 MG/DL (8.5-10.1); CARBON DIOXIDE LEVEL 26 MEQ/L (21-32); CHLORIDE LEVEL 104 MEQ/L (98-107); CREATININE FOR GFR 0.84 MG/DL (0.70-1.30); GLOMERULAR FILTRATION RATE > 60.0 (>60); GLUCOSE, FASTING 103 MG/DL (70-105); POTASSIUM SERUM 3.6 MEQ/L (3.5-5.1); SODIUM LEVEL 141 MEQ/L (136-145); TOTAL PROTEIN 8.3 GM/DL (6.4-8.2)
[2017-02-18] MEDS ORDERED: NICOTINE 21MG/24HR 1 EA TRANSDERMAL TD ONE (01:15)
[2017-02-18] MEDS ORDERED: traZODone 50 MG TAB PO ONE (01:15)
--- NOTE | 2017-02-18 08:19 | ECGEPIP ---
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
--- NOTE | 2017-02-18 08:41 | REP ---
Supine abdomen, single AP view: Comparisons lfth 2013. There is no bowel distension or obstruction. There are metallic densities superimposed over the midabdomen inferiorly which could be gowning or clothing artifacts and surgical sutures. These were not present previously. Skeletal structures and soft tissues are otherwise unremarkable. Impression: Normal bowel gas pattern. Signed by Ham Flor MD 02/18/2017 08:32 A
[2017-02-18] MEDS ORDERED: PALIPERIDONE 6 MG ER TAB (INVEGA) PO SCH (09:00)
[2017-02-18 14:16] VITALS: BP 114/82
[2017-02-18] MEDS ORDERED: ACETAMINOPHEN TAB 650MG DOSE (2X325MG) PO PRN (15:45)
[2017-02-18] MEDS ORDERED: MAALOX 30 ML SUSP *UDC PO PRN (15:45)
[2017-02-18] MEDS ORDERED: MOM 30ML SUSPENSION UDC PO PRN (15:45)
[2017-02-18] MEDS ORDERED: LORazepam 1 MG TAB PO PRN (15:45)
[2017-02-18] MEDS: NICOTINE 21MG/24HR 1 EA TRANSDERMAL TD SCH (16:07)
[2017-02-19 06:40] VITALS: BP 120/79
[2017-02-19] MEDS: NICOTINE 21MG/24HR 1 EA TRANSDERMAL TD SCH (08:33)
[2017-02-19] MEDS: PALIPERIDONE 3 MG ER TAB (INVEGA) PO SCH (08:35)
--- NOTE | 2017-02-19 09:44 | HPEPDOC ---
Medical History and Physical Date of Admission February 18, 2017 at 12:36 History and Physical PCP: Dr Love Sarah ATTENDING: Dr. Trevor Gutierrez HPI:36yoM admitted to [facility] for schizophrenia, being medically examined today. No acute medical complaints today. Denies any fevers, chills, weakness, fatigue , FRANZ, CP, SOB, cough, palpitations, abdominal pain, N/V/D or changes in bowel or bladder habits. PMHx: Schizophrenia Insomnia Substance use Tobacco use PSHX: Denies SOCHX: Resides in: [place] Marital Status: Single Kids: None Employment: Disabled Tobacco use: One pack per day ETOH: 2 cans of beer per day Illicit Drugs: Marijuana daily IV Drug Use: Denies Tattoos done unprofessionally: 1 FAMHX: Mother: Alive, COPD Father: , unknown cause Siblings: 2 brothers Alive, well Children: None Unexpected deaths due to medical reasons: 1 Brother unknown cause. One sister accidental . Patient is unaware of any further details. ROS: As noted in HPI, otherwise 11pt ROS of systems reviewed and unremarkable. PE: GEN: 36yoM, appears stated age. Well-nourished, well developed. No acute distress. Alert and oriented x 3. Flat affect, has a difficult time answering questions, slow to answer questions. HEENT: Normocephalic, atraumatic. Pupils are equal, round, and reactive to light. Extraocular movements are intact. No nystagmus appreciated. Sclera are nonicteric. Conjunctiva without injection. Nose midline. Nasal turbinates without bogginess. EACs both patent BL. TMs both visualized and nolan with good cone of light, no bulging or erythema. No facial asymmetry. Moist mucous membranes. Dentition fair. Pharynx pink and moist, no cobblestoning. Neck supple , trachea midline. No lymphadenopathy or thyromegaly appreciated. CHEST: Regular rate and rhythm, +S1, +S2 LUNGS: Clear to auscultation bilaterally. No wheezes, rales, or rhonchi. Breathing appears symmetric and easy. Patient is speaking in full sentences. No accessory muscle use. ABD: Round, soft, non-tender, non-distended. +Bowel sounds throughout. No rebound or guarding. No costovertebral angle tenderness. EXT: Pulses 2+ bilaterally dorsalis pedis and radial. No lower extremity edema appreciated. SKIN: [place], dry, warm. Capillary refill <2sec. No rashes. Abrasion is noted 2 right lower extremity. No erythema. No drainage. NEURO: Alert and oriented x 3. Cranial nerves III-XII are intact. No focal deficits appreciated. EK02/17/17 SINUS TACHYCARDIA ABNORMAL RHYTHM ECG INCREASED RATE 03/13/15 A&P: 36yoM admitted to [facility] for schizophrenia 1. Psych. Plan per Psychiatry. EKG on file. 2. Nicotine dependence. Patch available. 3. Borderline EKG. Request follow-up EKG. Heart rate trends 70s to 80s. No cardiac signs or symptoms appreciated on exam, follow with PCP. 4. Follow up with PCP on discharge. 5. Substance use. Per psychiatry. 6. History of tattoo done unprofessionally. Patient agrees to HIV and hepatitis screening. 7. Elevated LFT. Recheck CMP. 8. Staff member eva present throughout exam. Vital Signs Vital Signs Date Time Temp Pulse Resp B/P (MAP) Pulse Ox O2 Delivery O2 Flow Rate FiO2 02/19/17 06:40 97.4 83 18 120/79 (93) 02/18/17 14:16 95 02/18/17 13:56 Room Air Laboratory Data Labs 24H Item Value Date Time White Blood Count 7.3 K/mm3 02/17/172145 Red Blood Count 5.03 M/mm3 02/17/172145 Hemoglobin 17.0 g/dl 02/17/172145 Hematocrit 47.3 % 02/17/172145 Mean Corpuscular Volume 93.9 fl 02/17/172145 Mean Corpuscular Hemoglobin 33.7 pg H 02/17/172145 Mean Corpuscular Hemoglobin Concent 35.9 g/dl 02/17/172145 Red Cell Distribution Width 11.6 % 02/17/172145 Platelet Count 385 k/mm3 02/17/172145 Sodium Level 141 MEQ/L 02/17/172145 Potassium Level 3.6 MEQ/L 02/17/172145 Chloride Level 104 MEQ/L 02/17/172145 Carbon Dioxide Level 26 MEQ/L 02/17/172145 Anion Gap 11 MEQ/L 02/17/172145 Blood Urea Nitrogen 7 MG/DL 02/17/172145 Creatinine 0.84 MG/DL 02/17/172145 Glomerular Filtration Rate > 60.0 02/17/172145 Fasting Glucose 103 MG/DL 02/17/172145 Calcium Level 8.7 MG/DL 02/17/172145 Total Bilirubin 0.2 MG/DL 02/17/172145 Aspartate Amino Transf (AST/SGOT) 39 U/L H 02/17/172145 Alanine Aminotransferase (ALT/SGPT) 41 U/L 02/17/172145 Alkaline Phosphatase 84 U/L 02/17/172145 Total Creatine Kinase 131 U/L 02/17/172145 Total Protein 8.3 GM/DL H 02/17/172145 Albumin 3.8 GM/DL 02/17/172145 Albumin/Globulin Ratio 0.84 L 02/17/172145 Thyroid Stimulating Hormone (TSH) 0.886 uIU/ML 02/17/172145 Salicylates Level 3.6 MG/DL L 02/17/172145 Urine Opiates Screen NEGATIVE 02/17/172145 Urine Methadone Screen NEGATIVE 02/17/172145 Acetaminophen Level < 2.0 UG/ML L 02/17/172145 Urine Barbiturates Screen NEGATIVE 02/17/172145 Urine Phencyclidine Screen NEGATIVE 02/17/172145 Urine Amphetamines Screen NEGATIVE 02/17/172145 Urine Benzodiazepines Screen NEGATIVE 02/17/172145 Urine Cocaine Metabolite Screen NEGATIVE 02/17/172145 Urine Cannabinoids Screen POSITIVE H 02/17/172145 Ethyl Alcohol Level 0.261 % H 02/17/172145 Home Medications Scheduled Paliperidone (Paliperidone ER) 3 Mg Tab, 6 MG PO QAM for Schizophrenia Scheduled PRN Trazodone HCl (Trazodone HCl) 50 Mg Tab, 50 MG PO QHSP PRN for INSOMNIA Allergies Coded Allergies: Bupropion (Unverified Allergy, Unknown, 04/23/13) Estefania Thomas February 19, 2017 09:44
[2017-02-19] MEDS ORDERED: THIAMINE 100 MG TAB PO ONE (17:15)
[2017-02-19] MEDS ORDERED: LORazepam 2 MG TAB PO PRN (17:15)
--- NOTE | 2017-02-19 17:19 | ECGEPIP ---
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
[2017-02-19 18:17] VITALS: BP 105/63
--- NOTE | 2017-02-19 21:38 | MHHPEPDOC ---
[facility] History & Physical History and Physical DATE OF ADMISSION: February 18, 2017 at 12:36 LEGAL STATUS AT ADMISSION: 9.39 CHIEF COMPLAINT: "I got into a fight with my mother" HISTORY OF THE PRESENT ILLNESS: The patient a 36-year-old man presented to [facility] reportedly drunk and intoxicated. He was brought in by police after it was reported that the patient was the stabbing a metal plate in a menacing fashion. When he was initially brought in he was distorted making incoherent statements. As the patient appeared to resolve he became more paranoid and less combative. The patient when he was met with describe the other than the reported fight that everything was going "good". He described that he had not picked up the medicine after he was discharged and had not received the depot. He described that he was confused as to which medications he was on. He asked if his outpatient provider had change them. There is no record that he saw his outpatient provider since his last discharge. Otherwise during the interview is difficult to get information on the patient as he appears fairly distrustful and suspicious. PSYCHIATRIC ROS: The patient states that everything is "fine" when asked about psychiatric review of systems PAST PSYCHIATRIC HISTORY: Prior Psychiatric Diagnosis: paranoid schizophrenia Previous admissions: multiple with the last on February 01, 2017 Current Medications: none currently Suicide attempts: unknown Psychotropic Medication History: per chart has been tried on a number of different medications including ziprasidone, Paxil, Abilify, Zyprexa and Depakote. Per my last note he remembered Paxil made him feel more anxious. ALLERGIES: Please see below. FAMILY PSYCHIATRIC HISTORY: uncle with chronic schizophrenia SOCIAL HISTORY: Early Relations:/development: no indicators of a particularly tumultuous childhood -sibling order: unknown -Paternal relationships: described as "good" other than fighting Education: high school dropout either in 11th or 12th grade Occupational: none, unemployed Legal: has been care home/[facility] months in the past Martial: unknown Economic: currently subsistence Social Security disability Supports: supported by his mother and sister Abuse/trauma: not clear SUBSTANCE ABUSE HISTORY: patient substantial abuse of nicotine, alcohol and cannabis in the past. This appears to be a preceding factor to his admissions. MEDICAL HISTORY: No long-term chronic medical conditions noted MENTAL STATUS EXAMINATION: General: disheveled Speech: sparse Thought processes: circumstantial Thought content: highly reserved Abstract reasoning, and computation: impaired Description of associations: loose Description of abnormal or psychotic thoughts: makes no threats towards himself or others. Appears to be responding to internal stimuli. Denies having any auditory or visual hallucinations. Judgment: poor Insight: poor Orientation: apears to be alert and orientated to his surroundings Recent and remote memory: intact Attention span and concentration: intact Fund of knowledge: poor Mood: "fine" Affect: flat/blunted DIAGNOSES: 1. Paranoid schizophrenia, decompensated 2. Nicotine use disorder, severe, and controlled setting 3. Alcohol use disorder, severe, in withdrawal 4. Cannabis use disorder, severe, and controlled setting ASSESSMENT: 36-year-old man with a long history of chronic paranoid schizophrenia who has been noncompliant with his oral medications as an outpatient. He presents after becoming intoxicated, psychotic and violent. He would likely the do well on a long-acting depot PROBLEM LIST: 1. Altered thoughts 2. Anxiety 3. Substance use INITIAL TREATMENT PLAN: 1. Patient was admitted on a 9.39 legal status. 2. Complete history was obtained. 3. With patients permission, family will be contacted and database will be expanded. 4. Patients medication regimen will be reviewed and changed accordingly. -Paliperidone be increased to 9 mg daily, loading dose of paliperidone depot to be considered 5. Patient will be provided with protected environment. 6. Patient will be treated with individual, group, and milieu therapies. 7. Patient will receive supportive psych-education. 8. Discharge planning will commence immediately. 9. Outpatient follow-up treatment will be strongly recommended. 10. The initial treatment plan will focus initially on: initial stabilization ESTIMATED LENGTH OF STAY: 3-5 DAYS. TIME SPENT COUNSELING AND COORDINATING INITIAL CARE: 50 minutes. Medications Scheduled Paliperidone (Paliperidone ER) 3 Mg Tab, 6 MG PO QAM for Schizophrenia Scheduled PRN Trazodone HCl (Trazodone HCl) 50 Mg Tab, 50 MG PO QHSP PRN for INSOMNIA Allergies Coded Allergies: Bupropion (Unverified Allergy, Unknown, 04/23/13) GME ATTESTATION My preceptor for this patient encounter was physically present in the building during the encounter and was fully available. As needed, all aspects of the patient interview, examination, medical decision making process, and medical care plan development were reviewed and approved by the preceptor. Preceptor is aware and concurs with the plan as stated in the body of this note and will attest to such by his/her cosignature. THEA EDWARDS DO February 19, 2017 21:27
[2017-02-20 06:19] VITALS: BP 128/90
[2017-02-20 07:19] LABS: ALBUMIN 3.4 GM/DL (3.2-5.2); ALBUMIN/GLOBULIN RATIO 0.89 (1.00-1.93); ALKALINE PHOSPHATASE 62 U/L (45-117); ALT/SGPT 31 U/L (12-78); ANION GAP 10 MEQ/L (8-16); AST/SGOT 27 U/L (15-37); BILIRUBIN,TOTAL 0.3 MG/DL (0.2-1.0); BLOOD UREA NITROGEN 7 MG/DL (7-18); CALCIUM LEVEL 8.8 MG/DL (8.5-10.1); CARBON DIOXIDE LEVEL 25 MEQ/L (21-32); CHLORIDE LEVEL 104 MEQ/L (98-107); CREATININE FOR GFR 1.02 MG/DL (0.70-1.30); GLOMERULAR FILTRATION RATE > 60.0 (>60); GLUCOSE, FASTING 161 MG/DL (70-105); POTASSIUM SERUM 3.9 MEQ/L (3.5-5.1); SODIUM LEVEL 139 MEQ/L (136-145); TOTAL PROTEIN 7.2 GM/DL (6.4-8.2)
[2017-02-20 07:45] VITALS: BP 118/86
[2017-02-20] MEDS: PALIPERIDONE 3 MG ER TAB (INVEGA) PO SCH (09:18)
[2017-02-20] MEDS: NICOTINE 21MG/24HR 1 EA TRANSDERMAL TD SCH (09:18)
[2017-02-20] MEDS: THIAMINE 100 MG TAB PO SCH ×2 (09:18→21:08)
[2017-02-20] MEDS: MULTIVITAMINS/MINERALS THERAP 1 TAB PO SCH (09:19)
[2017-02-20] MEDS: FOLIC ACID 1 MG TAB PO SCH (09:19)
[2017-02-20 18:13] VITALS: BP 108/60
[2017-02-20] MEDS ORDERED: PALIPERIDONE PALMITATE 234 MG/1.5 ML INJ (INVEGA SUSTENNA)(J2426) IM ONE (20:00)
--- NOTE | 2017-02-20 22:15 | MHIPNPDOC ---
[facility] Progress Note Progress Note DATE OF SERVICE: 02/20/17 INTERVAL HISTORY: Medication Side effects: reports no side effects from paliperidone Behavior/events: has been more social and less reserved today. It is much less bizarre and aloof. Group Attendance: has been attending groups Psychiatric Symptoms: patient reports that he's feeling better and less distorted. He describes that he feels more social and that he's engaging more with the other patients. VITAL SIGNS: See below. NEW TEST RESULTS: See below CURRENT MEDICATIONS: See below. MENTAL STATUS EXAMINATION: General: well-groomed Speech: sparse but more fluid Thought processes: coherent Thought content: some reservation Abstract reasoning, and computation: improving Description of associations: less loose Description of abnormal or psychotic thoughts:Denies any suicidal or homicidal ideation. Denies any auditory or visual hallucinations. Does not appear to be responding to internal stimuli. Does not appear to be endorsing any bizarre or paranoid ideation. Judgment: improving Insight: improving Orientation: alert and oriented times 3 Recent and remote memory: intact Attention span and concentration: intact Fund of knowledge: adequate Mood:" fine" Affect: more reactivity DIAGNOSES: 1. Paranoid schizophrenia, decompensated. 2. Nicotine use disorder, severe, maintenance therapy. 3. Cannabis use disorder, severe, and control setting. 4. Alcohol use disorder, severe, in withdrawal ASSESSMENT: improving MANAGEMENT PLAN: Medications: continue paliperidone 9 mg daily. Gave paliperidone depot 234 mg today. Continue alcohol withdrawal protocol. Psychotherapy: encourage group attendance Social: prospective discharge early next week Misc: none Disposition: The patient will need of further inpatient stay to address psychosis and disposition needs. TIME SPENT: 15 minutes. Vital Signs Vital Signs Date Time Temp Pulse Resp B/P (MAP) Pulse Ox O2 Delivery O2 Flow Rate FiO2 02/20/17 18:13 97.7 72 16 108/60 (76) 02/20/17 06:19 Room Air 02/18/17 14:16 95 Laboratory Data 24H Labs Laboratory Tests 2 02/20/17 06:12: Anion Gap 10, Glomerular Filtration Rate > 60.0, Blood Urea Nitrogen 7, Creatinine 1.02, Sodium Level 139, Potassium Level 3.9, Chloride Level 104, Carbon Dioxide Level 25, Calcium Level 8.8, Aspartate Amino Transf (AST/SGOT) 27 , Alanine Aminotransferase (ALT/SGPT) 31, Alkaline Phosphatase 62, Total Bilirubin 0.3, Total Protein 7.2, Albumin 3.4, Albumin/Globulin Ratio 0.89L CBC/BMP Laboratory Tests 02/20/17 06:12 Calcium Level 8.8, Aspartate Amino Transf (AST/SGOT) 27, Alanine Aminotransferase (ALT/SGPT) 31, Alkaline Phosphatase 62, Total Bilirubin 0.3, Total Protein 7.2, Albumin 3.4 Current Medications Current Medications Acetaminophen (Tylenol Tab) 650 mg Q6HP PRN PO HEADACHE or DISCOMFORT; Start at 15:45; Stop 03/20/17 at 15:44 Al Hydrox/Mg Hydrox/Simethicone (Mylanta) 30 ml Q4HP PRN PO HEARTBURN/ INDIGESTION; Start 02/18/17 at 15:45; Stop 03/20/17 at 15:44 Folic Acid (Folic Acid) 1 mg DAILY PO Last administered on 02/20/17 09:19; Start 02/20/17 at 09:00; Stop 03/22/17 at 08:59 Home Med (Med Rec Complete!) ASDIRECTED XX ; Start 02/18/17 at 08:45; Stop at 08:45; Status DC Lorazepam (Ativan) 1 mg BIDP PRN PO ANXIETY; Start 02/18/17 at 15:45; Stop at 15:44 Lorazepam (Ativan) 2 mg ASDIRECTED PRN PO SEE PROTOCOL; Start 02/19/17 at 17:15 ; Stop 02/26/17 at 17:14 Magnesium Hydroxide (Milk Of Magnesia) 30 ml DAILYPRN PRN PO CONSTIPATION; Start 02/18/17 at 15:45; Stop 03/20/17 at 15:44 Multivitamins (Theragram-M) 1 tab DAILY PO Last administered on 02/20/17 09:19 ; Start 02/20/17 at 09:00; Stop 03/22/17 at 08:59 Nicotine (Nicoderm Cq 21mg) 1 patch DAILY TD Last administered on 02/20/17 09: 18; Start 02/18/17 at 09:00; Stop 03/20/17 at 08:59 Paliperidone (Invega) 6 mg DAILY PO Last administered on 02/18/17 09:00; Start 02/18/17 at 09:00; Stop 02/18/17 at 15:43; Status DC Paliperidone (Invega) 9 mg DAILY PO Last administered on 02/20/17 09:18; Start 02/19/17 at 09:00; Stop 03/21/17 at 08:59 Thiamine HCl (Thiamine HCl) 100 mg BID PO Last administered on 02/20/17 21:08 ; Start 02/20/17 at 09:00; Stop 02/22/17 at 09:01 Trazodone HCl (Desyrel) 50 mg QHSP PRN PO INSOMNIA; Start 02/18/17 at 15:45; Stop 03/20/17 at 15:44 Allergies Coded Allergies: Bupropion (Unverified Allergy, Unknown, 04/23/13) GME ATTESTATION My preceptor for this patient encounter was physically present in the building during the encounter and was fully available. As needed, all aspects of the patient interview, examination, medical decision making process, and medical care plan development were reviewed and approved by the preceptor. Preceptor is aware and concurs with the plan as stated in the body of this note and will attest to such by his/her cosignature. THEA EDWARDS DO February 20, 2017 22:15
[2017-02-21 06:18] VITALS: BP 112/78
[2017-02-21] MEDS: PALIPERIDONE 3 MG ER TAB (INVEGA) PO SCH (08:44)
[2017-02-21] MEDS: MULTIVITAMINS/MINERALS THERAP 1 TAB PO SCH (08:44)
[2017-02-21] MEDS: THIAMINE 100 MG TAB PO SCH ×2 (08:44→20:12)
[2017-02-21] MEDS: FOLIC ACID 1 MG TAB PO SCH (08:44)
[2017-02-21] MEDS: NICOTINE 21MG/24HR 1 EA TRANSDERMAL TD SCH (08:44)
[2017-02-21 13:23] VITALS: BP 122/78
[2017-02-21 18:00] VITALS: BP 123/77
[2017-02-21] MEDS: traZODone 50 MG TAB PO PRN (20:12)
[2017-02-22 06:16] VITALS: BP 110/68
--- NOTE | 2017-02-22 06:20 | IPN ---
DATE: 02/21/2017 MEDICATION SIDE EFFECTS: Reports no side effects from paliperidone except for pain where he received his injection. BEHAVIORAL: He has been more interactive, he has more of an expression in his voice and his face, and he is more inquisitive about his medications and the side effects of this. GROUP ATTENDANCE: He has been attending groups. PSYCHIATRIC SYMPTOMS: The patient says that he feels much better and that he feels that he has gained weight because he goes to the lounge and eats, but because he is enjoying also the company of his peers. MENTAL STATUS EXAMINATION: He presents to the office wearing hospital clothes, with good eye contact, good hygiene, with a pleasant and cooperative attitude. His speech is more fluent, although it is still sparse. His thought process is intact, coherent. His thought content is negative for suicidal ideation, negative for homicidal ideation and he denies auditory or visual hallucinations, but he is still being paranoid. Description of associations, they are still loose. Abstract reasoning and computation fair. Description of abnormal or psychotic thoughts: He is not responding to internal stimuli, denies auditory or visual hallucinations, and denies delusional thoughts. His judgment and insight are improving. His orientation: He is alert and oriented times three. Recent and remote memory have improved compared to his previous admission. Attention span and concentration fair. Fund of knowledge average. Mood "I'm okay." Affect less blunted, more reactive. DIAGNOSES: 1. Paranoid schizophrenia decompensated. 2. Nicotine use disorder, severe. Maintenance therapy. 3. Cannabis use disorder, severe, uncontrolled setting. 4. Alcohol use disorder, severe, in withdrawal. ASSESSMENT: He has improved. MANAGEMENT PLAN: Medications: Continue with paliperidone 9 mg daily. He already received his paliperidone depo 234 mg last night where he reports pain at the injection site. Continue with withdrawal protocol. Psychotherapy: Continue to encourage group attendance. DISPOSITION: The patient still needs to spend some time at the inpatient mental health unit for stabilization. TIME SPENT: 15 minutes.
[2017-02-22] MEDS: NICOTINE 21MG/24HR 1 EA TRANSDERMAL TD SCH (08:30)
[2017-02-22] MEDS: MULTIVITAMINS/MINERALS THERAP 1 TAB PO SCH (08:30)
[2017-02-22] MEDS: PALIPERIDONE 3 MG ER TAB (INVEGA) PO SCH (08:30)
[2017-02-22] MEDS: THIAMINE 100 MG TAB PO SCH (08:30)
[2017-02-22] MEDS: FOLIC ACID 1 MG TAB PO SCH (08:30)
[2017-02-22 18:00] VITALS: BP 120/73
--- NOTE | 2017-02-22 20:05 | MHIPNPDOC ---
[facility] Progress Note Progress Note DATE OF SERVICE: 02/22/17 INTERVAL HISTORY: Medication Side effects: The patient describes no side effects from his paliperidone at this time Behavior/events: More engaged and less bizarre than previously. He appears to be more amenable to conversation and discharge planning. He describes that he happily excepted the Invega Depo injection Group Attendance: Intermittent group attendance Psychiatric Symptoms: Less bizarre and paranoid. He appears to be able to engage in social gatherings on the rodriguez more effectively area and he does not appear to be as irritable and dysthymic as prior. VITAL SIGNS: See below. NEW TEST RESULTS: See below CURRENT MEDICATIONS: See below. MENTAL STATUS EXAMINATION: General: Unshaven Speech: No pressure Thought processes: Coherent Thought content: Focused on discharge Abstract reasoning, and computation: Intact Description of associations: Improving Description of abnormal or psychotic thoughts:Denies any suicidal or homicidal ideation. Denies any auditory or visual hallucinations. Does not appear to be responding to internal stimuli. Does not appear to be endorsing any bizarre or paranoid ideation. Judgment: Fair Insight: Fair Orientation: Alert and oriented 3 Recent and remote memory: Intact Attention span and concentration: Intact Fund of knowledge: Adequate Mood: "Fine" Affect: More reactivity and euthymia than prior DIAGNOSES: 1. Chronic paranoid schizophrenia. 2. Nicotine use disorder, severe, on maintenance treatment. 3. Cannabis use disorder, severe, in controlled setting. 4. Alcohol use disorder, severe, in withdrawal ASSESSMENT: Improving MANAGEMENT PLAN: Medications: Continue paliperidone 10 mg, patient will stop at discharge as he had the paliperidone Depo to 234 mg on Wednesday the . Psychotherapy: Encourage group attendance Social: [place] of discharge tomorrow Misc: None Disposition: The patient will need of further inpatient stay to address disposition needs. TIME SPENT: 15 minutes. Vital Signs Vital Signs Date Time Temp Pulse Resp B/P (MAP) Pulse Ox O2 Delivery O2 Flow Rate FiO2 02/22/17 18:00 97.2 86 16 120/73 (89) 02/22/17 06:16 Room Air 02/18/17 14:16 95 Current Medications Current Medications Acetaminophen (Tylenol Tab) 650 mg Q6HP PRN PO HEADACHE or DISCOMFORT; Start at 15:45; Stop 03/20/17 at 15:44 Al Hydrox/Mg Hydrox/Simethicone (Mylanta) 30 ml Q4HP PRN PO HEARTBURN/ INDIGESTION; Start 02/18/17 at 15:45; Stop 03/20/17 at 15:44 Folic Acid (Folic Acid) 1 mg DAILY PO Last administered on 02/22/17 08:30; Start 02/20/17 at 09:00; Stop 03/22/17 at 08:59 Home Med (Med Rec Complete!) ASDIRECTED XX ; Start 02/18/17 at 08:45; Stop at 08:45; Status DC Lorazepam (Ativan) 1 mg BIDP PRN PO ANXIETY; Start 02/18/17 at 15:45; Stop at 15:44 Lorazepam (Ativan) 2 mg ASDIRECTED PRN PO SEE PROTOCOL; Start 02/19/17 at 17:15 ; Stop 02/26/17 at 17:14 Magnesium Hydroxide (Milk Of Magnesia) 30 ml DAILYPRN PRN PO CONSTIPATION; Start 02/18/17 at 15:45; Stop 03/20/17 at 15:44 Multivitamins (Theragram-M) 1 tab DAILY PO Last administered on 02/22/17 08:30 ; Start 02/20/17 at 09:00; Stop 03/22/17 at 08:59 Nicotine (Nicoderm Cq 21mg) 1 patch DAILY TD Last administered on 02/22/17 08: 30; Start 02/18/17 at 09:00; Stop 03/20/17 at 08:59 Paliperidone (Invega) 6 mg DAILY PO Last administered on 02/18/17 09:00; Start 02/18/17 at 09:00; Stop 02/18/17 at 15:43; Status DC Paliperidone (Invega) 9 mg DAILY PO Last administered on 02/22/17 08:30; Start 02/19/17 at 09:00; Stop 03/21/17 at 08:59 Thiamine HCl (Thiamine HCl) 100 mg BID PO Last administered on 02/22/17 08:30 ; Start 02/20/17 at 09:00; Stop 02/22/17 at 09:01; Status DC Trazodone HCl (Desyrel) 50 mg QHSP PRN PO INSOMNIA Last administered on 5/21/ 17at 20:12; Start 02/18/17 at 15:45; Stop 03/20/17 at 15:44 Allergies Coded Allergies: Bupropion (Unverified Allergy, Unknown, 04/23/13) GME ATTESTATION My preceptor for this patient encounter was physically present in the building during the encounter and was fully available. As needed, all aspects of the patient interview, examination, medical decision making process, and medical care plan development were reviewed and approved by the preceptor. Preceptor is aware and concurs with the plan as stated in the body of this note and will attest to such by his/her cosignature. THEA EDWARDS DO February 22, 2017 20:05
[2017-02-22] MEDS: traZODone 50 MG TAB PO PRN (20:25)
[2017-02-23 06:49] VITALS: BP 107/65
[2017-02-23] MEDS: MULTIVITAMINS/MINERALS THERAP 1 TAB PO SCH (08:32)
[2017-02-23] MEDS: PALIPERIDONE 3 MG ER TAB (INVEGA) PO SCH (08:32)
[2017-02-23] MEDS: FOLIC ACID 1 MG TAB PO SCH (08:32)
[2017-02-23] MEDS: NICOTINE 21MG/24HR 1 EA TRANSDERMAL TD SCH (08:33)
[2017-02-23] MEDS ORDERED: PALIPERIDONE PALMITATE 234 MG/1.5 ML INJ (INVEGA SUSTENNA)(J2426) IM SCH (09:00)
[2017-02-23] MEDS ORDERED: INVE234I IM (09:19)
--- NOTE | 2017-02-23 13:04 | MHDSPDOC ---
[facility] Discharge Summary Discharge Summary DATE OF ADMISSION: February 18, 2017 at 12:36 DATE OF DISCHARGE: February 23, 2017 at 11:30 DISCHARGE DIAGNOSES: 1. Paranoid schizophrenia, chronic 2. Alcohol use disorder. REASON FOR ADMISSION: The patient became decompensated because he was noncompliant with medications. On the day of discharge from his previous hospitalization he went straight to drink alcohol with a friend and he totally forgot about taking his medications. To avoid this problem, he received the injectable form of paliperidone, Invega Sustenna, 234 mg IM on February 20. Since he was admitted to the inpatient mental health unit, he was started on paliperidone and he did well on this medication, so, he agreed to have the injectable form. He will have to continue taking paliperidone orally, 6 mg by mouth daily for 2 more weeks and he will have to receive his injectable form of this medication on March 23. MENTAL STATUS EXAMINATION ON DISCHARGE: Patient is a 36-year old male, who is alert, cooperative with interview, good eye contact, dressed in personal close with good hygiene Speech is normal although sparse. Language skills are fair. Thought processes including: Logical. Thought content: Negative suicidal ideation, negative homicidal ideation, negative for psychosis, obsessions, compulsions, phobias. Abstract reasoning, and computation: Has problems with abstract thinking but he does fairly well in computation at this time. Description of associations: Not loose. Description of abnormal or psychotic thoughts: Denies auditory or visual hallucinations, denies paranoid, persecutory delusional thoughts. Judgment: Improved. Insight: Improved. Orientation to oriented 3. Recent and remote memory: Fair. Attention span and concentration: Fair. Language: Normal. Fund of knowledge: Adequate. Mood: "I feel fine". Affect: Slightly constricted. MEDICATIONS ON DISCHARGE: -Paliperidone 6 mg by mouth daily for 14 days for psychosis -Paliperidone injection for for psychosis is due every 30 days and the next one is due on March 23 . PLAN/FOLLOWUP ARRANGEMENTS: Patient will continue treatment with medications and psychotherapy as an outpatient The amount of time spent in the coordination of care for this patient was approximately 20 minutes. Vital Signs/I&Os Vital Signs Date Time Temp Pulse Resp B/P (MAP) Pulse Ox O2 Delivery O2 Flow Rate FiO2 02/23/17 06:49 97.4 64 18 107/65 (79) 02/22/17 06:16 Room Air 5/18/17 14:16 95 Medications Scheduled Paliperidone (Paliperidone ER) 3 Mg Tab, 6 MG PO QAM for Schizophrenia for 7 Days, #14 Paliperidone Palmitate (Invega Sustenna) 234 Mg/1.5 Ml Inj, 234 MG IM Q30D for Schizophrenia, #1 Allergies Coded Allergies: Bupropion (Unverified Allergy, Unknown, 04/23/13) CAMMY GEORGE MD February 23, 2017 13:04
[2017-02-24] MEDS ORDERED: PALIPERIDONE 6 MG ER TAB (INVEGA) PO SCH (09:00)
== END 2017-02-23 11:30 | disposition home or self-care (01) | DRG 885 ==
LOC: M ED 02-18 07:27 → M ED INP 02-18 12:36 → M PSY 02-18 14:00
PROVIDERS: ADMIT Psychiatry & Neurology Psychiatry; ATTEND Psychiatry & Neurology Psychiatry
DX: F20.0 Paranoid schizophrenia (principal); F10.10 Alcohol abuse, uncomplicated; G47.00 Insomnia, unspecified; F17.200 Nicotine dependence, unspecified, uncomplicated; Z88.8 Allergy status to other drugs, medicaments and biological substances; Z79.899 Other long term (current) drug therapy

== ENCOUNTER → 2017-02-26 | Outpatient (CLI) | payer MEDICARE ==
[~2017-02-26] MED LIST changes: +INVE234I IM
== END ==
LOC: M OUTALCOH 12:43
PROVIDERS: ATTEND Psychiatry & Neurology Psychiatry
DX: Z13.9 Encounter for screening, unspecified (principal)

== ENCOUNTER → 2017-06-17 | Outpatient (REF) | payer MEDICARE ==
[~2017-06-17] MED LIST changes: -RISP2TAB30 PO; +RISP2TAB32 PO
[2017-06-23 08:06] LABS: GC Carboxy THC 33 ng/mL (Cutoff=10)
== END ==
LOC: M LAB REF 09:46
PROVIDERS: ATTEND Psychiatry & Neurology Psychiatry
DX: F12.10 Cannabis abuse, uncomplicated (principal); F20.9 Schizophrenia, unspecified; Z79.899 Other long term (current) drug therapy
CPT/HCPCS: 36415; 80307; G0480

== ENCOUNTER 2017-12-01 14:30 | Inpatient (IN) | payer MEDICARE ==
[2017-12-01 15:32] LABS: HEMATOCRIT 48.2 % (42.0-52.0); HEMOGLOBIN 17.2 g/dl (14.0-18.0); MEAN CORPUSCULAR HEMOGLOBIN 31.7 pg (27.0-33.0); MEAN CORPUSCULAR HGB CONC 35.7 g/dl (32.0-36.5); MEAN CORPUSCULAR VOLUME 88.9 fl (80.0-96.0); PLATELET COUNT, AUTOMATED 349 10^3/uL (150-450); RED BLOOD COUNT 5.42 10^6/uL (4.30-6.10); RED CELL DISTRIBUTION WIDTH 11.9 % (11.5-14.5); WHITE BLOOD COUNT 10.4 10^3/uL (4.0-10.0)
[2017-12-01 16:02] LABS: ALBUMIN 4.3 GM/DL (3.2-5.2); ALBUMIN/GLOBULIN RATIO 1.02 (1.00-1.93); ALKALINE PHOSPHATASE 60 U/L (45-117); ALT/SGPT 27 U/L (12-78); ANION GAP 12 MEQ/L (8-16); AST/SGOT 27 U/L (7-37); BILIRUBIN,DIRECT 0.1 MG/DL (0.0-0.2); BILIRUBIN,TOTAL 0.4 MG/DL (0.2-1.0); BLOOD UREA NITROGEN 7 MG/DL (7-18); CARBON DIOXIDE LEVEL 22 MEQ/L (21-32); CHLORIDE LEVEL 108 MEQ/L (98-107); CREATININE FOR GFR 1.01 MG/DL (0.70-1.30); ETHYL ALCOHOL (ETHANOL) 0.237 % (0.000-0.010); GLOMERULAR FILTRATION RATE > 60.0 (>60); GLUCOSE, FASTING 111 MG/DL (70-100); POTASSIUM SERUM 3.5 MEQ/L (3.5-5.1); SALICYLATE LEVEL 5.7 MG/DL (5.0-30.0); SODIUM LEVEL 142 MEQ/L (136-145); THYROID STIMULATING HORMONE 0.922 uIU/ML (0.358-3.740); TOTAL PROTEIN 8.5 GM/DL (6.4-8.2)
[2017-12-01 16:06] LABS: ACETAMINOPHEN LEVEL < 2.0 UG/ML (10.0-30.0)
[2017-12-01 18:48] LABS: AMPHETAMINES LEVEL URINE NEGATIVE (NEGATIVE); BARBITURATES URINE NEGATIVE (NEGATIVE); BENZODIAZEPINES URINE NEGATIVE (NEGATIVE); CANNABINOIDS URINE NEGATIVE (NEGATIVE); COCAINE METABOLITE URINE NEGATIVE (NEGATIVE); METHADONE URINE NEGATIVE (NEGATIVE); OPIATES URINE NEGATIVE (NEGATIVE); PHENCYCLIDINE URINE NEGATIVE (NEGATIVE)
[2017-12-01] MEDS ORDERED: MOM 30ML SUSPENSION UDC PO (22:45)
[2017-12-01] MEDS ORDERED: MAALOX 30 ML SUSP *UDC PO (22:45)
[2017-12-01] MEDS ORDERED: HALOPERIDOL 5 MG TAB PO (22:45)
[2017-12-02] MEDS: PALIPERIDONE 6 MG ER TAB (INVEGA) PO (09:50)
[2017-12-02] MEDS ORDERED: LORazepam 2 MG TAB PO (11:00)
[2017-12-02] MEDS: FOLIC ACID 1 MG TAB PO (11:46)
[2017-12-02] MEDS: MULTIVITAMINS/MINERALS THERAP 1 TAB PO (11:46)
[2017-12-02] MEDS: THIAMINE 100 MG TAB PO ×2 (11:46→21:32)
[2017-12-02] MEDS: LORazepam 1 MG TAB PO (21:32)
[2017-12-02] MEDS: QUEtiapine FUMARATE 100 MG TAB PO (21:32)
[2017-12-03] MEDS: FOLIC ACID 1 MG TAB PO (10:00)
[2017-12-03] MEDS: THIAMINE 100 MG TAB PO ×2 (10:00→21:00)
[2017-12-03] MEDS: PALIPERIDONE 6 MG ER TAB (INVEGA) PO (10:00)
[2017-12-03] MEDS: MULTIVITAMINS/MINERALS THERAP 1 TAB PO (10:00)
[2017-12-04] MEDS: FOLIC ACID 1 MG TAB PO (08:37)
[2017-12-04] MEDS: THIAMINE 100 MG TAB PO ×2 (08:37→21:00)
[2017-12-04] MEDS: MULTIVITAMINS/MINERALS THERAP 1 TAB PO (08:37)
[2017-12-04] MEDS: PALIPERIDONE 6 MG ER TAB (INVEGA) PO (08:38)
[2017-12-04] MEDS: ACETAMINOPHEN TAB 650MG DOSE (2X325MG) PO (11:29)
[2017-12-05] MEDS: PALIPERIDONE 6 MG ER TAB (INVEGA) PO (08:59)
[2017-12-05] MEDS: FOLIC ACID 1 MG TAB PO (09:00)
[2017-12-05] MEDS: MULTIVITAMINS/MINERALS THERAP 1 TAB PO (09:00)
[2017-12-05] MEDS: INFLUENZA QUADRIVALENT PF VACCINE 0.5ML SYRINGE (90686) IM (12:09)
[2017-12-05] MEDS: LORazepam 1 MG TAB PO (20:09)
[2017-12-05] MEDS: QUEtiapine FUMARATE 100 MG TAB PO (20:09)
[2017-12-05] MEDS: ACETAMINOPHEN TAB 650MG DOSE (2X325MG) PO (20:09)
[2017-12-06] MEDS: PALIPERIDONE 6 MG ER TAB (INVEGA) PO (08:34)
[2017-12-06] MEDS: MULTIVITAMINS/MINERALS THERAP 1 TAB PO (08:34)
[2017-12-06] MEDS: FOLIC ACID 1 MG TAB PO (08:34)
== END 2017-12-06 14:00 | disposition home or self-care (01) | DRG 885 ==
LOC: M PSY 12-02 00:09 → M ED 14:30 → M ED INP 22:41
DX: F20.0 Paranoid schizophrenia (principal); F10.10 Alcohol abuse, uncomplicated; F12.10 Cannabis abuse, uncomplicated; F17.200 Nicotine dependence, unspecified, uncomplicated; Z88.8 Allergy status to other drugs, medicaments and biological substances; Z79.899 Other long term (current) drug therapy

== ENCOUNTER 2018-02-24 15:12 | Inpatient (IN) | payer MEDICARE ==
[2018-02-24] MEDS: HALOPERIDOL 5 MG/ML VIAL (J1630) IM (15:45)
[2018-02-24] MEDS: diphenhydrAMINE INJ 50MG/ML VIAL (J1200) IM (15:45)
[2018-02-24] MEDS: LORazepam 2 MG/ML VIAL (J2060) IM (15:45)
[2018-02-24 16:30] LABS: AMPHETAMINES LEVEL URINE NEGATIVE (NEGATIVE); BARBITURATES URINE NEGATIVE (NEGATIVE); BENZODIAZEPINES URINE NEGATIVE (NEGATIVE); CANNABINOIDS URINE NEGATIVE (NEGATIVE); COCAINE METABOLITE URINE NEGATIVE (NEGATIVE); METHADONE URINE NEGATIVE (NEGATIVE); OPIATES URINE NEGATIVE (NEGATIVE); PHENCYCLIDINE URINE NEGATIVE (NEGATIVE)
[2018-02-24 16:34] LABS: HEMATOCRIT 42.5 % (42.0-52.0); HEMOGLOBIN 14.7 g/dl (13.5-17.5); MEAN CORPUSCULAR HEMOGLOBIN 31.1 pg (27.0-33.0); MEAN CORPUSCULAR HGB CONC 34.6 g/dl (32.0-36.5); PLATELET COUNT, AUTOMATED 283 10^3/uL (150-450); RED BLOOD COUNT 4.72 10^6/uL (4.30-6.10); RED CELL DISTRIBUTION WIDTH 11.8 % (11.5-14.5); WHITE BLOOD COUNT 9.2 10^3/uL (4.0-10.0)
[2018-02-24 17:17] LABS: ACETAMINOPHEN LEVEL < 2.0 UG/ML (10.0-30.0); ALBUMIN 3.8 GM/DL (3.2-5.2); ALBUMIN/GLOBULIN RATIO 1.03 (1.00-1.93); ALKALINE PHOSPHATASE 77 U/L (45-117); ALT/SGPT 19 U/L (12-78); ANION GAP 11 MEQ/L (8-16); AST/SGOT 29 U/L (7-37); BILIRUBIN,DIRECT < 0.1 MG/DL (0.0-0.2); BILIRUBIN,TOTAL 0.3 MG/DL (0.2-1.0); BLOOD UREA NITROGEN 4 MG/DL (7-18); CALCIUM LEVEL 8.3 MG/DL (8.5-10.1); CARBON DIOXIDE LEVEL 25 MEQ/L (21-32); CHLORIDE LEVEL 105 MEQ/L (98-107); CREATININE FOR GFR 0.77 MG/DL (0.70-1.30); ETHYL ALCOHOL (ETHANOL) 0.255 % (0.000-0.010); GLOMERULAR FILTRATION RATE > 60.0 (>60); GLUCOSE, FASTING 90 MG/DL (70-100); POTASSIUM SERUM 3.5 MEQ/L (3.5-5.1); SALICYLATE LEVEL 5.6 MG/DL (5.0-30.0); SODIUM LEVEL 141 MEQ/L (136-145); THYROID STIMULATING HORMONE 0.362 uIU/ML (0.358-3.740); TOTAL PROTEIN 7.5 GM/DL (6.4-8.2)
[2018-02-25] MEDS ORDERED: MAALOX 30 ML SUSP *UDC PO (01:15)
[2018-02-25] MEDS ORDERED: ACETAMINOPHEN TAB 650MG DOSE (2X325MG) PO (01:15)
[2018-02-25] MEDS ORDERED: LORazepam 2 MG TAB PO (01:15)
[2018-02-25] MEDS ORDERED: MOM 30ML SUSPENSION UDC PO (01:15)
[2018-02-25] MEDS: THIAMINE 100 MG TAB PO ×3 (01:18→21:30)
[2018-02-25] MEDS: PALIPERIDONE 3 MG ER TAB (INVEGA) PO ×2 (08:41→21:30)
[2018-02-25] MEDS: MULTIVITAMINS/MINERALS THERAP 1 TAB PO (08:41)
[2018-02-25] MEDS: FOLIC ACID 1 MG TAB PO (08:41)
[2018-02-25] MEDS ORDERED: hydrOXYzine 50 MG TAB PO (12:00)
[2018-02-26] MEDS: FOLIC ACID 1 MG TAB PO (07:58)
[2018-02-26] MEDS: THIAMINE 100 MG TAB PO ×2 (07:58→21:17)
[2018-02-26] MEDS: MULTIVITAMINS/MINERALS THERAP 1 TAB PO (07:58)
[2018-02-26] MEDS: PALIPERIDONE 3 MG ER TAB (INVEGA) PO (07:58)
[2018-02-26] MEDS: PALIPERIDONE 6 MG ER TAB (INVEGA) PO (21:17)
[2018-02-27] MEDS: THIAMINE 100 MG TAB PO (08:17)
[2018-02-27] MEDS: MULTIVITAMINS/MINERALS THERAP 1 TAB PO (08:17)
[2018-02-27] MEDS: FOLIC ACID 1 MG TAB PO (08:17)
[2018-02-27] MEDS: PALIPERIDONE 6 MG ER TAB (INVEGA) PO (08:17)
[2018-02-27] MEDS: HALOPERIDOL 10 MG TAB PO (20:21)
[2018-02-27] MEDS: traZODone 50 MG TAB PO (20:21)
[2018-02-28] MEDS: HALOPERIDOL 10 MG TAB PO ×2 (08:29→20:41)
[2018-02-28] MEDS: FOLIC ACID 1 MG TAB PO (08:29)
[2018-02-28] MEDS: MULTIVITAMINS/MINERALS THERAP 1 TAB PO (08:29)
[2018-02-28] MEDS: traZODone 50 MG TAB PO (20:41)
[2018-03-01] MEDS: MULTIVITAMINS/MINERALS THERAP 1 TAB PO (08:02)
[2018-03-01] MEDS: HALOPERIDOL 10 MG TAB PO (08:02)
[2018-03-01] MEDS: FOLIC ACID 1 MG TAB PO (08:02)
[2018-03-01] MEDS: HALOPERIDOL DECANOATE 100 MG/ML VIAL (J1631) IM (11:10)
[2018-03-01] MEDS: HALOPERIDOL 5 MG TAB PO (22:12)
[2018-03-02] MEDS: HALOPERIDOL 5 MG TAB PO ×2 (08:28→20:59)
[2018-03-02] MEDS: FOLIC ACID 1 MG TAB PO (08:28)
[2018-03-02] MEDS: MULTIVITAMINS/MINERALS THERAP 1 TAB PO (08:28)
[2018-03-03] MEDS: HALOPERIDOL 5 MG TAB PO ×2 (08:01→21:39)
[2018-03-03] MEDS: FOLIC ACID 1 MG TAB PO (08:01)
[2018-03-03] MEDS: MULTIVITAMINS/MINERALS THERAP 1 TAB PO (08:01)
[2018-03-03] MEDS: BENZOCAINE 10% 9GM TUBE (ANBESOL) TOP (13:02)
[2018-03-04] MEDS: HALOPERIDOL 5 MG TAB PO (08:19)
[2018-03-04] MEDS: FOLIC ACID 1 MG TAB PO (08:19)
[2018-03-04] MEDS: MULTIVITAMINS/MINERALS THERAP 1 TAB PO (08:19)
== END 2018-03-04 13:00 | disposition home or self-care (01) | DRG 885 ==
LOC: M ED 15:12 → M ED INP 02-25 01:12 → M PSY 02-25 01:58
DX: F20.0 Paranoid schizophrenia (principal); F10.20 Alcohol dependence, uncomplicated; Z91.14 Patient's other noncompliance with medication regimen; Z88.8 Allergy status to other drugs, medicaments and biological substances; Z79.899 Other long term (current) drug therapy; F17.210 Nicotine dependence, cigarettes, uncomplicated

== ENCOUNTER 2018-07-22 16:33 | Inpatient (IN) | payer MEDICARE ==
[2018-07-22] MEDS: LORazepam 2 MG/ML VIAL (J2060) IM (17:20)
[2018-07-22 18:41] LABS: HEMATOCRIT 41.1 % (42.0-52.0); HEMOGLOBIN 14.2 g/dl (13.5-17.5); MEAN CORPUSCULAR HEMOGLOBIN 31.1 pg (27.0-33.0); MEAN CORPUSCULAR HGB CONC 34.5 g/dl (32.0-36.5); MEAN CORPUSCULAR VOLUME 89.9 fl (80.0-96.0); PLATELET COUNT, AUTOMATED 303 10^3/uL (150-450); RED BLOOD COUNT 4.57 10^6/uL (4.30-6.10); RED CELL DISTRIBUTION WIDTH 12.3 % (11.5-14.5); WHITE BLOOD COUNT 9.4 10^3/uL (4.0-10.0)
[2018-07-22 19:19] LABS: ACETAMINOPHEN LEVEL < 2.0 UG/ML (10.0-30.0); ALBUMIN 3.7 GM/DL (3.2-5.2); ALBUMIN/GLOBULIN RATIO 1.12 (1.00-1.93); ALKALINE PHOSPHATASE 61 U/L (45-117); ALT/SGPT 15 U/L (12-78); ANION GAP 13 MEQ/L (8-16); AST/SGOT 20 U/L (7-37); BILIRUBIN,DIRECT < 0.1 MG/DL (0.0-0.2); BILIRUBIN,TOTAL 0.3 MG/DL (0.2-1.0); BLOOD UREA NITROGEN 7 MG/DL (7-18); CALCIUM LEVEL 8.4 MG/DL (8.5-10.1); CARBON DIOXIDE LEVEL 22 MEQ/L (21-32); CHLORIDE LEVEL 108 MEQ/L (98-107); CREATININE FOR GFR 0.84 MG/DL (0.70-1.30); ETHYL ALCOHOL (ETHANOL) 0.211 % (0.000-0.010); GLOMERULAR FILTRATION RATE > 60.0 (>60); GLUCOSE, FASTING 90 MG/DL (70-100); POTASSIUM SERUM 3.6 MEQ/L (3.5-5.1); SALICYLATE LEVEL 6.3 MG/DL (5.0-30.0); SODIUM LEVEL 143 MEQ/L (136-145)
[2018-07-23 01:41] LABS: AMPHETAMINES LEVEL URINE NEGATIVE (NEGATIVE); BARBITURATES URINE NEGATIVE (NEGATIVE); BENZODIAZEPINES URINE NEGATIVE (NEGATIVE); CANNABINOIDS URINE NEGATIVE (NEGATIVE); COCAINE METABOLITE URINE NEGATIVE (NEGATIVE); METHADONE URINE NEGATIVE (NEGATIVE); OPIATES URINE NEGATIVE (NEGATIVE); PHENCYCLIDINE URINE NEGATIVE (NEGATIVE)
[2018-07-23] MEDS ORDERED: MOM 30ML SUSPENSION UDC PO (02:30)
[2018-07-23] MEDS ORDERED: MAALOX 30 ML SUSP *UDC PO (02:30)
[2018-07-23] MEDS: NICOTINE 21MG/24HR 1 EA TRANSDERMAL TD (09:00)
[2018-07-23] MEDS: PALIPERIDONE 3 MG ER TAB (INVEGA) PO ×3 (09:00→21:28)
[2018-07-23] MEDS: traZODone 50 MG TAB PO (21:27)
[2018-07-24] MEDS: PALIPERIDONE 3 MG ER TAB (INVEGA) PO ×3 (09:00→21:00)
[2018-07-24] MEDS: NICOTINE 21MG/24HR 1 EA TRANSDERMAL TD (09:00)
[2018-07-25] MEDS: PALIPERIDONE 3 MG ER TAB (INVEGA) PO ×2 (09:00→21:20)
[2018-07-25] MEDS: NICOTINE 21MG/24HR 1 EA TRANSDERMAL TD (09:00)
[2018-07-25] MEDS ORDERED: PALIPERIDONE 3 MG ER TAB (INVEGA) PO (09:00)
[2018-07-26] MEDS: NICOTINE 21MG/24HR 1 EA TRANSDERMAL TD (09:00)
[2018-07-26] MEDS: PALIPERIDONE 3 MG ER TAB (INVEGA) PO ×2 (09:21→21:00)
[2018-07-26] MEDS: OLANZapine ORAL DISINTEGRATING TAB 5MG PO (15:36)
[2018-07-27] MEDS: PALIPERIDONE 3 MG ER TAB (INVEGA) PO ×2 (08:59→21:04)
[2018-07-27] MEDS: NICOTINE 21MG/24HR 1 EA TRANSDERMAL TD (09:00)
[2018-07-27] MEDS: traZODone 50 MG TAB PO (21:04)
[2018-07-28] MEDS: OLANZapine ORAL DISINTEGRATING TAB 5MG PO (00:34)
[2018-07-28] MEDS: NICOTINE 21MG/24HR 1 EA TRANSDERMAL TD (09:00)
[2018-07-28] MEDS: PALIPERIDONE 3 MG ER TAB (INVEGA) PO ×2 (09:31→21:38)
[2018-07-28] MEDS ORDERED: diphenhydrAMINE INJ 50MG/ML VIAL (J1200) IM (19:30)
[2018-07-29] MEDS: PALIPERIDONE 3 MG ER TAB (INVEGA) PO ×2 (08:55→20:31)
[2018-07-29] MEDS: NICOTINE 21MG/24HR 1 EA TRANSDERMAL TD (08:55)
[2018-07-29] MEDS: QUEtiapine FUMARATE 50 MG TAB PO (20:30)
[2018-07-30] MEDS: PALIPERIDONE 3 MG ER TAB (INVEGA) PO ×2 (09:04→20:13)
[2018-07-30] MEDS: QUEtiapine FUMARATE 50 MG TAB PO ×3 (09:04→20:13)
[2018-07-30] MEDS: NICOTINE 21MG/24HR 1 EA TRANSDERMAL TD (09:05)
[2018-07-30] MEDS: OLANZapine ORAL DISINTEGRATING TAB 5MG PO (14:10)
[2018-07-31] MEDS: PALIPERIDONE 3 MG ER TAB (INVEGA) PO ×2 (09:12→21:48)
[2018-07-31] MEDS: QUEtiapine FUMARATE 50 MG TAB PO ×3 (09:12→21:48)
[2018-07-31] MEDS: NICOTINE 21MG/24HR 1 EA TRANSDERMAL TD (09:13)
[2018-07-31] MEDS: CLINDAMYCIN 150 MG CAP PO ×3 (10:58→21:48)
[2018-08-01] MEDS: NICOTINE 21MG/24HR 1 EA TRANSDERMAL TD (08:04)
[2018-08-01] MEDS: QUEtiapine FUMARATE 50 MG TAB PO ×2 (08:05→15:33)
[2018-08-01] MEDS: PALIPERIDONE 3 MG ER TAB (INVEGA) PO ×2 (08:05→21:44)
[2018-08-01] MEDS: CLINDAMYCIN 150 MG CAP PO ×3 (08:05→21:44)
[2018-08-01] MEDS: QUEtiapine FUMARATE 100 MG TAB PO (21:44)
[2018-08-02] MEDS: NICOTINE 21MG/24HR 1 EA TRANSDERMAL TD (09:14)
[2018-08-02] MEDS: CLINDAMYCIN 150 MG CAP PO ×3 (09:15→21:46)
[2018-08-02] MEDS: PALIPERIDONE 3 MG ER TAB (INVEGA) PO ×2 (09:15→21:46)
[2018-08-02] MEDS: QUEtiapine FUMARATE 100 MG TAB PO ×3 (09:15→21:46)
[2018-08-03] MEDS: PALIPERIDONE 3 MG ER TAB (INVEGA) PO ×2 (09:17→21:56)
[2018-08-03] MEDS: NICOTINE 21MG/24HR 1 EA TRANSDERMAL TD (09:17)
[2018-08-03] MEDS: QUEtiapine FUMARATE 100 MG TAB PO ×3 (09:17→21:55)
[2018-08-03] MEDS: CLINDAMYCIN 150 MG CAP PO ×3 (09:18→21:56)
[2018-08-03] MEDS: TUBERCULIN PPD 5 UNITS/0.1 ML ID (11:29)
[2018-08-03] MEDS: ACETAMINOPHEN TAB 650MG DOSE (2X325MG) PO (14:49)
[2018-08-04] MEDS: PALIPERIDONE 3 MG ER TAB (INVEGA) PO (08:28)
[2018-08-04] MEDS: CLINDAMYCIN 150 MG CAP PO ×3 (08:28→22:23)
[2018-08-04] MEDS: NICOTINE 21MG/24HR 1 EA TRANSDERMAL TD (08:28)
[2018-08-04] MEDS: QUEtiapine FUMARATE 100 MG TAB PO ×3 (08:28→22:23)
[2018-08-04] MEDS: PALIPERIDONE PALMITATE 234 MG/1.5 ML INJ (INVEGA SUSTENNA)(J2426) IM (12:18)
[2018-08-04] MEDS: OLANZapine ORAL DISINTEGRATING TAB 5MG PO (22:24)
[2018-08-05] MEDS: QUEtiapine FUMARATE 100 MG TAB PO ×3 (08:50→21:00)
[2018-08-05] MEDS: CLINDAMYCIN 150 MG CAP PO ×3 (08:50→21:00)
[2018-08-05] MEDS: NICOTINE 21MG/24HR 1 EA TRANSDERMAL TD (08:50)
[2018-08-05] MEDS: PPD DOCUMENTATION ENTRY MISC XX (08:52)
[2018-08-06] MEDS: NICOTINE 21MG/24HR 1 EA TRANSDERMAL TD (08:17)
[2018-08-06] MEDS: QUEtiapine FUMARATE 100 MG TAB PO ×3 (08:17→20:25)
[2018-08-06] MEDS: traZODone 50 MG TAB PO (20:25)
[2018-08-06] MEDS: OLANZapine ORAL DISINTEGRATING TAB 5MG PO (20:26)
[2018-08-07] MEDS: QUEtiapine FUMARATE 100 MG TAB PO ×3 (09:25→21:15)
[2018-08-07] MEDS: NICOTINE 21MG/24HR 1 EA TRANSDERMAL TD (09:25)
[2018-08-08] MEDS: NICOTINE 21MG/24HR 1 EA TRANSDERMAL TD (08:21)
[2018-08-08] MEDS: QUEtiapine FUMARATE 100 MG TAB PO ×3 (08:21→21:13)
[2018-08-08] MEDS: PALIPERIDONE PALMITATE 156 MG/1ML INJ(INVEGA SUSTENNA)(J2426) IM (11:14)
[2018-08-08] MEDS: traZODone 50 MG TAB PO (21:13)
[2018-08-09] MEDS: QUEtiapine FUMARATE 100 MG TAB PO ×3 (08:57→21:25)
[2018-08-09] MEDS: NICOTINE 21MG/24HR 1 EA TRANSDERMAL TD (08:58)
[2018-08-09] MEDS: traZODone 50 MG TAB PO (21:25)
[2018-08-10] MEDS: QUEtiapine FUMARATE 100 MG TAB PO (08:52)
[2018-08-10] MEDS: NICOTINE 21MG/24HR 1 EA TRANSDERMAL TD (08:53)
[2018-08-10] MEDS: QUEtiapine FUMARATE 200 MG TAB PO ×2 (16:39→21:28)
[2018-08-11] MEDS: QUEtiapine FUMARATE 200 MG TAB PO ×4 (08:12→21:18)
[2018-08-11] MEDS: NICOTINE 21MG/24HR 1 EA TRANSDERMAL TD (08:12)
[2018-08-12] MEDS: NICOTINE 21MG/24HR 1 EA TRANSDERMAL TD (08:21)
[2018-08-12] MEDS: QUEtiapine FUMARATE 200 MG TAB PO (08:21)
== END 2018-08-12 15:10 | disposition home or self-care (01) | DRG 885 ==
LOC: M ED INP 07-23 02:18 → M PSY 08-02 20:20 → M ED 16:33
DX: F20.0 Paranoid schizophrenia (principal); F10.10 Alcohol abuse, uncomplicated; G47.00 Insomnia, unspecified; F17.210 Nicotine dependence, cigarettes, uncomplicated; Z88.8 Allergy status to other drugs, medicaments and biological substances; Z79.899 Other long term (current) drug therapy

== ENCOUNTER 2018-11-07 13:22 | Emergency (ER) | payer MEDICARE ==
[~2018-11-07] VITALS: Ht 157.5 cm; Wt 50.9 kg
[~2018-11-07 13:22] MED LIST changes: +ANBEEL TOP; +HALD100I2 IM; +HALO5TA PO; +HYDRO50TAB PO; +NALT50TA4 PO; -OLAN20TA PO; +OLAN20TA14 PO; +PALI1TAB3 PO; +QUET1TAB8 PO; +QUET1TAB9 PO
[2018-11-07 14:07] LABS: HEMATOCRIT 46.7 % (42.0-52.0); HEMOGLOBIN 16.3 g/dl (13.5-17.5); MEAN CORPUSCULAR HEMOGLOBIN 30.9 pg (27.0-33.0); MEAN CORPUSCULAR HGB CONC 34.9 g/dl (32.0-36.5); MEAN CORPUSCULAR VOLUME 88.6 fl (80.0-96.0); PLATELET COUNT, AUTOMATED 253 10^3/uL (150-450); RED BLOOD COUNT 5.27 10^6/uL (4.30-6.10); WHITE BLOOD COUNT 9.1 10^3/uL (4.0-10.0)
[2018-11-07 14:32] LABS: AMPHETAMINES LEVEL URINE NEGATIVE (NEGATIVE); BARBITURATES URINE NEGATIVE (NEGATIVE); BENZODIAZEPINES URINE NEGATIVE (NEGATIVE); CANNABINOIDS URINE POSITIVE (NEGATIVE); COCAINE METABOLITE URINE NEGATIVE (NEGATIVE); METHADONE URINE NEGATIVE (NEGATIVE); OPIATES URINE NEGATIVE (NEGATIVE); PHENCYCLIDINE URINE NEGATIVE (NEGATIVE)
[2018-11-07 14:52] LABS: ACETAMINOPHEN LEVEL < 2.0 UG/ML (10.0-30.0); ALBUMIN 3.7 GM/DL (3.2-5.2); ALT/SGPT 16 U/L (12-78); BILIRUBIN,DIRECT 0.1 MG/DL (0.0-0.2); BILIRUBIN,TOTAL 0.5 MG/DL (0.2-1.0); BLOOD UREA NITROGEN 11 MG/DL (7-18); CALCIUM LEVEL 8.6 MG/DL (8.5-10.1); CARBON DIOXIDE LEVEL 27 MEQ/L (21-32); CHLORIDE LEVEL 100 MEQ/L (98-107); CREATININE FOR GFR 1.12 MG/DL (0.70-1.30); ETHYL ALCOHOL (ETHANOL) < 0.003 % (0.000-0.010); GLOMERULAR FILTRATION RATE > 60.0 (>60); GLUCOSE, FASTING 97 MG/DL (70-100); SALICYLATE LEVEL 7.5 MG/DL (5.0-30.0); SODIUM LEVEL 136 MEQ/L (136-145); THYROID STIMULATING HORMONE 0.426 uIU/ML (0.358-3.740); TOTAL PROTEIN 6.9 GM/DL (6.4-8.2)
--- NOTE | 2018-11-07 20:19 | ECGEPIP ---
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
[2018-11-07 23:19] VITALS: BP 103/62
== END 2018-11-07 23:27 ==
LOC: M ED 13:22
DX: F20.9 Schizophrenia, unspecified (principal); G47.00 Insomnia, unspecified; F19.90 Other psychoactive substance use, unspecified, uncomplicated; F17.200 Nicotine dependence, unspecified, uncomplicated; Z88.8 Allergy status to other drugs, medicaments and biological substances; Z79.899 Other long term (current) drug therapy
CPT/HCPCS: 36415; 80048; 80076; 80307; 84443; 85027; 93005; 99285; G0480

== ENCOUNTER 2018-12-03 12:42 | Inpatient (IN) | payer MEDICARE ==
[~2018-12-03] VITALS: Ht 157.5 cm; Wt 56.6 kg
[2018-12-03] MEDS ORDERED: NS 1,000 ML IV ONE ×2 (13:30→14:45)
[2018-12-03 13:36] LABS: HEMATOCRIT 44.5 % (42.0-52.0); HEMOGLOBIN 15.3 g/dl (13.5-17.5); MEAN CORPUSCULAR HEMOGLOBIN 30.6 pg (27.0-33.0); MEAN CORPUSCULAR HGB CONC 34.4 g/dl (32.0-36.5); PLATELET COUNT, AUTOMATED 283 10^3/uL (150-450); VENOUS BASE EXCESS -1.5 (-2.0-2.0); VENOUS HCO3 23.5 MEQ/L (23.0-27.0); VENOUS O2 SATURATION 98.3 % (60.0-80.0); VENOUS PARTIAL PRESSURE CO2 40.5 mmHg (38.0-50.0); VENOUS PARTIAL PRESSURE O2 122.9 mmHg (30.0-50.0); VENOUS PH 7.381 UNITS (7.330-7.430); VENOUS STANDARD HCO3 23.3 MEQ/L; VENOUS TOTAL CO2 24.7 MEQ/L (24.0-28.0); WHITE BLOOD COUNT 12.1 10^3/uL (4.0-10.0)
--- NOTE | 2018-12-03 13:40 | REP ---
Clinical: Overdose . Comparison: 01/03/2011 . Findings: The mediastinum and cardiac silhouette are stable and within normal limits for portable technique. The lung johnson are clear without acute consolidation, effusion, or pneumothorax. Skeletal structures are intact. Impression: No acute cardiopulmonary process appreciated. Electronically Signed by Freddy Kirkland MD 12/03/2018 01:32 P
[2018-12-03 14:06] LABS: AMPHETAMINES LEVEL URINE NEGATIVE (NEGATIVE); BARBITURATES URINE NEGATIVE (NEGATIVE); BENZODIAZEPINES URINE NEGATIVE (NEGATIVE); CANNABINOIDS URINE NEGATIVE (NEGATIVE); COCAINE METABOLITE URINE NEGATIVE (NEGATIVE); METHADONE URINE NEGATIVE (NEGATIVE); OPIATES URINE NEGATIVE (NEGATIVE); PHENCYCLIDINE URINE NEGATIVE (NEGATIVE)
[2018-12-03 14:21] LABS: ALBUMIN 4.1 GM/DL (3.2-5.2); ALT/SGPT 20 U/L (12-78); BILIRUBIN,DIRECT < 0.1 MG/DL (0.0-0.2); BILIRUBIN,TOTAL 0.3 MG/DL (0.2-1.0); BLOOD UREA NITROGEN 11 MG/DL (7-18); CALCIUM LEVEL 8.6 MG/DL (8.5-10.1); CARBON DIOXIDE LEVEL 24 MEQ/L (21-32); CHLORIDE LEVEL 110 MEQ/L (98-107); CREATININE FOR GFR 0.84 MG/DL (0.70-1.30); ETHYL ALCOHOL (ETHANOL) 0.255 % (0.000-0.010); GLOMERULAR FILTRATION RATE > 60.0 (>60); GLUCOSE, FASTING 107 MG/DL (70-100); POTASSIUM SERUM 3.5 MEQ/L (3.5-5.1); SALICYLATE LEVEL 7.8 MG/DL (5.0-30.0); SODIUM LEVEL 144 MEQ/L (136-145); THYROID STIMULATING HORMONE 0.407 uIU/ML (0.358-3.740); TOTAL PROTEIN 7.7 GM/DL (6.4-8.2)
[2018-12-03 14:22] LABS: ACETAMINOPHEN LEVEL < 2.0 UG/ML (10.0-30.0)
[2018-12-03] MEDS ORDERED: NS 500 ML IV ONE (17:30)
--- NOTE | 2018-12-03 19:19 | ECGEPIP ---
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
[2018-12-04] MEDS ORDERED: LORazepam 2 MG TAB PO PRN (00:15)
[2018-12-04] MEDS ORDERED: MOM 30ML SUSPENSION UDC PO PRN (00:15)
[2018-12-04] MEDS ORDERED: MIRTAZAPINE 15 MG TAB PO SCH (00:15)
[2018-12-04] MEDS ORDERED: MAALOX 30 ML SUSP *UDC PO PRN (00:15)
[2018-12-04] MEDS ORDERED: PHARMACY COMMENT (00:56)
[2018-12-04] MEDS: THIAMINE 100 MG TAB PO SCH ×3 (00:57→21:20)
[2018-12-04 02:58] VITALS: BP 120/67
[2018-12-04 06:30] VITALS: BP 109/63
[2018-12-04 06:47] VITALS: BP 109/63
[2018-12-04] MEDS ORDERED: INVEGA PO (08:37)
[2018-12-04] MEDS ORDERED: SERO1TAB PO (08:40)
[2018-12-04] MEDS ORDERED: INVE234I IM (09:29)
[2018-12-04] MEDS ORDERED: TRAZ-160 PO (09:29)
[2018-12-04] MEDS ORDERED: PALI1TAB4 PO (09:29)
[2018-12-04] MEDS ORDERED: HYDR50TA70 PO (09:30)
[2018-12-04] MEDS: FOLIC ACID 1 MG TAB PO SCH (10:26)
[2018-12-04] MEDS: MULTIVITAMINS/MINERALS THERAP 1 TAB PO SCH (10:26)
[2018-12-04] MEDS: PALIPERIDONE 3 MG ER TAB (INVEGA) PO SCH ×2 (10:26→21:20)
[2018-12-04] MEDS: NICOTINE 21MG/24HR 1 EA TRANSDERMAL TD SCH (10:26)
--- NOTE | 2018-12-04 12:56 | MHHPEPDOC ---
[facility] History & Physical History and Physical DATE OF ADMISSION: Dec 04, 2018 at 00:07 LEGAL STATUS AT ADMISSION: . CHIEF COMPLAINT: Was brought by an ambulance to the ED for taking 1 pint of Listerine and possibly some of his medications HISTORY OF PRESENT ILLNESS: Patient is a 38-year-old male, who according to Ed record: "Reason for Referral Pt was brought to the ED by EMS after taking a possible OD of a pint of Listerine & unknown amounts of Seroquel & Invega. TW does not know who called the ambulance. Pt states he does not remember anything that happened prior to waking up in the ED. Chief Complaint Pt states he does not know why he is here. TW told him that it was reported that he took an OD & he said "I might have." He denies SI or HI. He does report depression, but is guarded about stressors. Pt appears to be acutely psychotic. When TW asked him if he wanted me to call his mother he stated "No. It's ok. She can hear us." He appears to be responding to internal stimuli & is answering questions that TW did not even ask. When asked what his dx is he states "lead pencils." He also c/o something being "red hot" & states it is burning his hands. Pt is not a reliable historian. He states he does not use alcohol but was 0.255 on arrival". Today, 12/04/2018, the patient looks tired, his right lower lid looks a little swollen as if he would be retaining fluids. He is dressed in hospital clothe s and he sais "I don't know, I don't know why I'm here. Everything is so weird, I was home and next thing I know si that I'm at the ED machine" TW asks what ED machine? He responds: "Nothing". He seems very guarded, denies feeling depressed but he looks sad, his speech is slow and although he denies Av hallucinations, he seems to be responding to internal stimuli Psychiatric Review of Systems Depression (2 or more weeks): denies Didi (4 or more days of): denies Psychosis: "No" ( regarding the question about him having AV hallucinations) PTSD: other (Patient is delusional and is not answering these questions) Anxiety: denies Past Psychiatric History Previous Psychiatric Diagnosis: Patient has been diagnosed with schizophrenia, paranoid type Previous Psychiatric Admissions: Multiple admissions to [facility], recently he was transferred to [facility] because we were out of beds here Suicide Attempts: Denies Psychiatric Follow-up: he said he was still taking the same medications he took here before, but he can't tell me what medications are those. apparently he was non compliant Psychiatric medications: ziprasidone, Paxil, Abilify, Zyprexa, Depakote, Invega (oral and injected) Past Medical History Medical Problems This information was obtained from previous records. Patient was guarded and disorganized Medical Problems PMHx: Schizophrenia Insomnia Substance use Tobacco use PSHX: Denies Hospitalizations: Yes Head Injury: No Seizures: No Hospitalizations: Yes Surgeries: No (Patient says "I don't know") Family Medical/Psychiatric HX Medical Problems The following information has been obtained from previous records because patient is internally preoccupied and guarded. Uncle has paranoid schizophrenia, per chart. Patient reports he "doesn't know." Psychiatric Disorders: Yes Addiction: No Suicide Attemps/Completions: No Addiction History nicotine, alcohol Social History the following inormation was obtained from previous records, patient was unable to provide accurate information. His response was "I don't know" to most of the questions Childhood: Patient reports he had a happy childhood; he denies having any sexual abuse, physical abuse, or emotional abuse. He states he had a good relationship with his parents. Patient has a sister; unsure of sibling order. Abuse/Trauma: Denies Current Living Situation: Patient currently lives with his mom. Education: Patient dropped out of high school in the 11th grade. Employment: On disability; unaware of how much he makes a month. Social Support: His mom. Legal: Has been in long-term/intermediate for 4 months in the past. Substance abuse: The patient reports he drinks ETOH daily "at least a few beers, sometimes liquor." He denies current illicit drug use, but according to previous notes the patient carries both cannabis, nicotine, and alcohol use disorders per previous diagnoses. Mental Status Examination Mental Status Examination General Appearance: appears stated age, hospital scubs/clothing, swelling on his Right lower lid, probably fluid retention Build: thin Demeanor: average Eye Contact: average Activity: average Behavior: cooperative Speech: Not spontaneous, not fluent. It is impoverished. Normal tone and volume Mood: depressed Affect: constricted/flat, congruent with mood Thought Process: incoherent, concrete, tangential, loose Thought Content (Delusions): none reported Thought Content (Other): none reported, other Thought Content (Aggressive): none reported Perception (Hallucinations): he denies but he is internally preoccupied Perception (Other): none reported Cognition (Impairment of): none reported Cognition(Intelligence Est.): average Oriented: Awake, Alert. unable to tell me today's date. he knows he is at [facility], he knows his name and his Insight: poor Judgment: Poor Psychosis: Associations, Abstract Thinking, Psychotic Perceptions (The patient denies AV hallucinations but he seems to be internally preoccupied ) Diagnoses 1. Paranoid schizophrenia 2. alcohol use disorder 3. Nicotine use disorder Assement/Plan Assessment Patient's presentation has been very similar on multiple admissions. he comes intoxicated to the ED and then, he becomes aggressive and he has to be chemically restrained. Apparently last night he went after one of the ED attendings, and after that, he had to receive medications. today, he is not coherent to answer questions, he is still disorganized. Initial Treatment Plan 1. Patient was admitted on a [9.39] status. 2. Complete history was obtained. 3. With patients permission, family will be contacted and database will be expanded. 4. Patients medication regimen will be reviewed and changed accordingly. 5. Patient will be provided with protected environment. 6. Patient will be treated with individual, group, and milieu therapies. 7. Patient will receive supportive psych-education. 8. Discharge planning will commence immediately. 9. Outpatient follow-up treatment will be strongly recommended. 10. The initial treatment plan will focus initially on: * Depression. * Altered thoughts * altered perceptions * non compliance * poor judgement * Risk for suicide. * Substance abuse. ESTIMATED LENGTH OF STAY:7 -10 DAYS. TIME SPENT COUNSELING AND COORDINATING INITIAL CARE: 60 minutes. Vital Signs Vital Signs Date Time Temp Pulse Resp B/P (MAP) Pulse Ox O2 Delivery O2 Flow Rate FiO2 12/04/18 06:47 98.8 80 18 109/63 (78) 12/04/18 02:58 92 12/03/18 23:46 Room Air Laboratory Data 24H Labs Laboratory Tests 2 12/03/18 13:12: Nucleated Red Blood Cells % (auto) 0.0, Blood Gas Bicarbonate Standard 23.3, Venous Blood pH 7.381, Venous Blood Partial Pressure CO2 40.5, Venous Blood Partial Pressure O2 122.9H, Venous Blood Total Carbon Dioxide 24.7, Venous Blood HCO3 23.5, Venous Blood Oxygen Saturation 98.3H, Venous Blood Base Excess -1.5, Anion Gap 10, Glomerular Filtration Rate > 60.0, Lactic Acid Level 2.7*H, Calcium Level 8.6, Aspartate Amino Transf (AST/SGOT) 19, Alanine Aminotransferase (ALT/SGPT) 20, Alkaline Phosphatase 58, Total Bilirubin 0.3, Direct Bilirubin < 0.1, Total Protein 7.7, Albumin 4.1, Albumin/Globulin Ratio 1.14, Thyroid Stimulating Hormone (TSH) 0.407, Salicylates Level 7.8, Urine Amphetamines Screen NEGATIVE, Urine Benzodiazepines Screen NEGATIVE, Urine Opiates Screen NEGATIVE, Urine Methadone Screen NEGATIVE, Acetaminophen Level < 2.0L, Urine Barbiturates Screen NEGATIVE, Urine Phencyclidine Screen NEGATIVE, Urine Cocaine Metabolite Screen NEGATIVE, Urine Cannabinoids Screen NEGATIVE, Ethyl Alcohol Level 0.255H 12/03/18 13:26: Bedside Glucose (Misc Panel) 106H 12/03/18 17:27: Lactic Acid Level 1.8, Salicylates Level 5.1 CBC/BMP Laboratory Tests 12/03/18 13:12 Red Blood Count 5.00, Mean Corpuscular Volume 89.0, Mean Corpuscular Hemoglobin 30.6, Mean Corpuscular Hemoglobin Concent 34.4, Red Cell Distribution Width 12.7 FSBS Laboratory Tests Test 12/03/18 13:26 Range/Units Bedside Glucose (Misc Panel) 106 70-105 MG/DL Medications Scheduled (Paliperidone ER) 9 Mg Tab, 9 MG PO DAILY for MOOD, (Reported) Paliperidone Palmitate (Invega Sustenna) 234 Mg/1.5 Ml Inj, 234 MG IM QMONTH for MOOD, (Reported) Quetiapine Fumerate (Seroquel) 100 Mg Tab, 100 MG PO TID for MOOD, (Reported) Scheduled PRN Hydroxyzine HCl (Hydroxyzine HCl) 50 Mg Tab, 50 MG PO Q6H PRN for ANXIETY, (Repo rted) Trazodone HCl (Trazodone HCl) 50 Mg Tab, 50 MG PO QHS PRN for INSOMNIA, (Reported) Allergies Coded Allergies: Bupropion (Unverified Allergy, Unknown, 04/23/13) Ibuprofen (Verified Allergy, Unknown, 11/07/18) Pseudoephedrine (Verified Allergy, Unknown, 11/07/18) CAMMY GEORGE MD Dec 04, 2018 11:19
[2018-12-04 18:07] VITALS: BP 145/87
[2018-12-04] MEDS: MIRTAZAPINE 15 MG TAB PO PRN (21:20)
[2018-12-04 22:00] VITALS: BP 102/64
[2018-12-05 06:00] VITALS: BP 100/56
[2018-12-05] MEDS: FOLIC ACID 1 MG TAB PO SCH (08:48)
[2018-12-05] MEDS: MULTIVITAMINS/MINERALS THERAP 1 TAB PO SCH (08:48)
[2018-12-05] MEDS: NICOTINE 21MG/24HR 1 EA TRANSDERMAL TD SCH (08:48)
[2018-12-05] MEDS: THIAMINE 100 MG TAB PO SCH ×2 (08:48→21:00)
[2018-12-05] MEDS: PALIPERIDONE 3 MG ER TAB (INVEGA) PO SCH (08:48)
[2018-12-05] MEDS: VENLAFAXINE 37.5 MG TAB PO SCH (09:00)
--- NOTE | 2018-12-05 09:51 | HPEPDOC ---
[facility] Medical History & Physical Date of Admission Dec 05, 2018 History and Physical PCP: none ATTENDING: Dr. Quinn Harkins HPI:38 yoM admitted to [facility] for paranoid schizophrenia, being medically examined today. The pt was brought to the ED after ingesting 1 pint of Listerine and unknown amounts of Seroquel and Invega. The pt was medically staibilized in the ED, poison control consulted and medically cleared for transfer to [facility]. No acute medical complaints today. Denies any fevers, chills, weakness, fatigue, FRANZ, CP, SOB, cough, palpitations, abdominal pain, N/V/D or changes in bowel or bladder habits. PMHx: Schizophrenia H/O alcohol use Insomnia Substance use Tobacco use PSHX: Denies SOCHX: Resides in: [place] Marital Status: Single Kids: None Employment: Disabled Tobacco use: 1 ppd ETOH: States 2 per day Illicit Drugs: denies IV Drug Use: Denies Tattoos done unprofessionally: 1 FAMHX: Mother: Alive, COPD Father: , unknown cause Siblings: 2 brothers Alive, well Children: None Unexpected deaths due to medical reasons: 1 Brother unknown cause. One sister accidental . Patient is unaware of any further details. ROS: As noted in HPI, otherwise 11pt ROS of systems reviewed and unremarkable. PE: GEN: 38yoM, appears stated age. Well-nourished, well developed. No acute d istress. Alert and oriented x 3. Flat affect, has a difficult time answering questions, slow to answer questions, avoids eye contact. HEENT: Normocephalic, atraumatic. Pupils are equal, round, and reactive to light. Extraocular movements are intact. No nystagmus appreciated. Sclera are nonicteric. Conjunctiva without injection. Nose midline. Nasal turbinates without bogginess. EACs both patent BL. TMs both visualized and nolan with good cone of light, no bulging or erythema. No facial asymmetry. Moist mucous membranes. Dentition poor. Pharynx pink and moist, no cobblestoning. Neck supple, trachea midline. No lymphadenopathy or thyromegaly appreciated. CHEST: Regular rate and rhythm, +S1, +S2 LUNGS: Clear to auscultation bilaterally. No wheezes, rales, or rhonchi. Breathing appears symmetric and easy. Patient is speaking in full sentences. No accessory muscle use. ABD: Round, soft, non-tender, non-distended. +Bowel sounds throughout. No rebound or guarding. No costovertebral angle tenderness. EXT: Pulses 2+ bilaterally dorsalis pedis and radial. No lower extremity edema appreciated. SKIN: [place], dry, warm. Capillary refill <2sec. No rashes. Abrasion is noted 2 right lower extremity. No erythema. No drainage. NEURO: Alert and oriented x 3. Cranial nerves III-XII are intact. No focal deficits appreciated. EKG: SINUS TACHYCARDIA ABNORMAL RHYTHM ECG NONSPECIFIC ST T [facility] CW 11/07/[address] T [facility] Electronically Signed On 12-03-2018 19:18:53 EST by Danita Schrader A&P: 38yoM admitted to [facility] for paranoid schizophrenia 1. Psych. Plan per Psychiatry. Update EKG. 2. Nicotine dependence. Patch available. 3. Follow up with PCP on discharge. 4. Substance use. Management as per psychiatry. Continue MVI, folic acid, thiamine. 5. H/O History of tattoo done unprofessionally. Negative HIV/Hepatitis screening 02/17, Pt declines rescreening. 6. Leukocytosis. Pt is afebrile Asymptomatic. Recheck CBC in AM. 7. Staff member Yousuf present throughout exam. Vital Signs Vital Signs Date Time Temp Pulse Resp B/P (MAP) Pulse Ox O2 Delivery O2 Flow Rate FiO2 12/05/18 06:00 98.6 88 14 100/56 (71) 92 12/03/18 23:46 Room Air Laboratory Data Labs 24H Item Value Date Time White Blood Count 12.1 10^3/uL H 12/03/18 1312 Red Blood Count 5.00 10^6/uL 12/03/18 1312 Hemoglobin 15.3 g/dl 12/03/18 1312 Hematocrit 44.5 % 12/03/18 1312 Mean Corpuscular Volume 89.0 fl 12/03/18 1312 Mean Corpuscular Hemoglobin 30.6 pg 12/03/18 1312 Mean Corpuscular Hemoglobin Concent 34.4 g/dl 12/03/18 1312 Red Cell Distribution Width 12.7 % 12/03/18 1312 Platelet Count 283 10^3/uL 12/03/18 1312 Sodium Level 144 MEQ/L 12/03/18 1312 Potassium Level 3.5 MEQ/L 12/03/18 1312 Chloride Level 110 MEQ/L H 12/03/18 1312 Carbon Dioxide Level 24 MEQ/L 12/03/18 1312 Anion Gap 10 MEQ/L 12/03/18 1312 Blood Urea Nitrogen 11 MG/DL 12/03/18 1312 Creatinine 0.84 MG/DL 12/03/18 1312 Glomerular Filtration Rate > 60.0 12/03/18 1312 Fasting Glucose 107 MG/DL H 12/03/18 1312 Calcium Level 8.6 MG/DL 12/03/18 1312 Total Bilirubin 0.3 MG/DL 12/03/18 1312 Direct Bilirubin < 0.1 MG/DL 12/03/18 1312 Aspartate Amino Transf (AST/SGOT) 19 U/L 12/03/18 1312 Alanine Aminotransferase (ALT/SGPT) 20 U/L 12/03/18 1312 Alkaline Phosphatase 58 U/L 12/03/18 1312 Total Protein 7.7 GM/DL 12/03/18 1312 Albumin 4.1 GM/DL 12/03/18 1312 Albumin/Globulin Ratio 1.14 12/03/18 1312 Thyroid Stimulating Hormone (TSH) 0.407 uIU/ML 12/03/18 1312 Salicylates Level 5.1 MG/DL 12/03/18 1727 Urine Opiates Screen NEGATIVE 12/03/18 1312 Urine Methadone Screen NEGATIVE 12/03/18 1312 Acetaminophen Level < 2.0 UG/ML L 12/03/18 1312 Urine Barbiturates Screen NEGATIVE 12/03/18 1312 Urine Phencyclidine Screen NEGATIVE 12/03/18 1312 Urine Amphetamines Screen NEGATIVE 12/03/18 1312 Urine Benzodiazepines Screen NEGATIVE 12/03/18 1312 Urine Cocaine Metabolite Screen NEGATIVE 12/03/18 1312 Urine Cannabinoids Screen NEGATIVE 12/03/18 1312 Ethyl Alcohol Level 0.255 % H 12/03/18 1312 Lactic Acid Level 2.7 MMOL/L *H 12/03/18 1312 Lactic Acid Level 1.8 MMOL/L 12/03/18 1727 Home Medications Scheduled (Paliperidone ER) 9 Mg Tab, 9 MG PO DAILY for MOOD Paliperidone Palmitate (Invega Sustenna) 234 Mg/1.5 Ml Inj, 234 MG IM QMONTH for MOOD Quetiapine Fumerate (Seroquel) 100 Mg Tab, 100 MG PO TID for MOOD Scheduled PRN Hydroxyzine HCl (Hydroxyzine HCl) 50 Mg Tab, 50 MG PO Q6H PRN for ANXIETY Trazodone HCl (Trazodone HCl) 50 Mg Tab, 50 MG PO QHS PRN for INSOMNIA Allergies Coded Allergies: Bupropion (Unverified Allergy, Unknown, 04/23/13) Ibuprofen (Verified Allergy, Unknown, 11/07/18) Pseudoephedrine (Verified Allergy, Unknown, 11/07/18) Estefania Thomas Dec 05, 2018 09:51
--- NOTE | 2018-12-05 12:53 | MHIPNPDOC ---
[facility] Progress Note Progress Note DATE OF SERVICE: 12/05/18 HISTORY: CHIEF COMPLAINT: Was brought by an ambulance to the ED for taking 1 pint of Listerine and possibly some of his medications HISTORY OF PRESENT ILLNESS: Patient is a 38-year-old male, who according to Ed record: "Reason for Referral Pt was brought to the ED by EMS after taking a possible OD of a pint of Listerine & unknown amounts of Seroquel & Invega. TW does not know who called the ambulance. Pt states he does not remember anything that happened prior to waking up in the ED. Chief Complaint Pt states he does not know why he is here. TW told him that it was reported that he took an OD & he said "I might have." He denies SI or HI. He does report depression, but is guarded about stressors. Pt appears to be acutely psychotic. When TW asked him if he wanted me to call his mother he stated "No. It's ok. She can hear us." He appears to be responding to internal stimuli & is answering questions that TW did not even ask. When asked what his dx is he states "lead pencils." He also c/o something being "red hot" & states it is burning his hands. Pt is not a reliable historian. He states he does not use alcohol but was 0.255 on arrival". Today, 12/04/2018, the patient looks tired, his right lower lid looks a little swollen as if he would be retaining fluids. He is dressed in hospital clothe s and he sais "I don't know, I don't know why I'm here. Everything is so weird, I was home and next thing I know si that I'm at the ED machine" TW asks what ED machine? He responds: "Nothing". He seems very guarded, denies feeling depressed but he looks sad, his speech is slow and although he denies Av hallucinations, he seems to be responding to internal stimuli VITAL SIGNS: See below. NEW TEST RESULTS: . CURRENT MEDICATIONS: See below. MENTAL STATUS EXAMINATION: General Appearance: appears stated age, hospital scubs/clothing, swelling on his Right lower lid, probably fluid retention Build: thin Demeanor: average Eye Contact: average Activity: average Behavior: cooperative Speech: Not spontaneous, not fluent. It is impoverished. Normal tone and volume Mood: depressed Affect: constricted/flat, congruent with mood Thought Process: incoherent, concrete, tangential, loose Thought Content (Delusions): none reported Thought Content (Other): none reported, other Thought Content (Aggressive): none reported Perception (Hallucinations): he denies but he is internally preoccupied Perception (Other): none reported Cognition (Impairment of): none reported Cognition(Intelligence Est.): average Oriented: Awake, Alert. unable to tell me today's date. he knows he is at [facility], he knows his name and his Insight: poor Judgment: Poor Psychosis: Associations, Abstract Thinking, Psychotic Perceptions (The patient denies AV hallucinations but he seems to be internally preoccupied ) Diagnoses 1. Paranoid schizophrenia 2. alcohol use disorder 3. Nicotine use disorder ASSESSMENT: His Mental Status Exam has not changed much from yesterday. He is eating in his room, has milk and juice with him, he is asking if there's coffee in the lounge. He tells me he is doing well, he continues to deny AV hallucinations but when I walked inside of his room, he was talking to himself. Will discontinue paliperidone because his insurance has not been willing to pay for it and this has affected his compliance. He will be given Risperdal instead and will be started Effexor 37.5 mgs daily. PLAN: Mirtazapine (Remeron) 15 mg QHS PRN PO INSOMNIA Nicotine (Nicoderm Cq 21mg) 1 patch DAILY TD Olanzapine (ZyPREXA ZYDIS) 5 mg Q6HP PRN PO AGITATION; Risperdal 1 mg Po QAM and Risperdal 2 mgs PO QHS Effexor 37.5 mgs PO QAM TIME SPENT: 20 minutes Vital Signs Vital Signs Date Time Temp Pulse Resp B/P (MAP) Pulse Ox O2 Delivery O2 Flow Rate FiO2 12/05/18 06:00 98.6 88 14 100/56 (71) 92 12/03/18 23:46 Room Air Current Medications Current Medications Acetaminophen (Tylenol Tab) 650 mg Q6HP PRN PO HEADACHE or DISCOMFORT; Start 12/04/18 at 00:15 Al Hydrox/Mg Hydrox/Simethicone (Mylanta) 30 ml Q4HP PRN PO HEARTBURN/INDIGESTION; Start 12/04/18 at 00:15 Folic Acid (Folic Acid) 1 mg DAILY PO Last administered on 12/05/18 08:48; Start 12/04/18 at 09:00 Home Med (Med Rec Complete!) ASDIRECTED XX ; Start 12/04/18 at 09:45; Stop 12/04/18 at 09:45; Status DC Lorazepam (Ativan) 2 mg ASDIRECTED PRN PO SEE PROTOCOL; Start 12/04/18 at 00:15 Magnesium Hydroxide (Milk Of Magnesia) 30 ml DAILYPRN PRN PO CONSTIPATION; Start 12/04/18 at 00:15 Mirtazapine (Remeron) 15 mg QHS PRN PO INSOMNIA Last administered on 12/04/18 21:20; Start 12/04/18 at 01:45 Mirtazapine (Remeron) 15 mg QHSP PO ; Start 12/04/18 at 00:15; Status UNV Multivitamins (Theragram-M) 1 tab DAILY PO Last administered on 12/05/18 08:48; Start 12/04/18 at 09:00 Nicotine (Nicoderm Cq 21mg) 1 patch DAILY TD Last administered on 12/05/18 08:48; Start 12/04/18 at 09:00 Olanzapine (ZyPREXA ZYDIS) 5 mg Q6HP PRN PO AGITATION; Start 12/04/18 at 00:15 Paliperidone (Invega) 3 mg BID PO Last administered on 12/05/18 08:48; Start 12/04/18 at 09:00 Thiamine HCl (Thiamine HCl) 100 mg BID PO Last administered on 12/05/18 08:48; Start 12/04/18 at 00:57; Stop 12/06/18 at 09:01 Allergies Coded Allergies: Bupropion (Unverified Allergy, Unknown, 04/23/13) Ibuprofen (Verified Allergy, Unknown, 11/07/18) Pseudoephedrine (Verified Allergy, Unknown, 11/07/18) CAMMY GEORGE MD Dec 05, 2018 12:53
--- NOTE | 2018-12-05 13:24 | HPE ---
DATE OF ADMISSION: 12/04/2018 HISTORY OF PRESENT ILLNESS: Please refer to psychiatric history and evaluation for further details on this admission. This examination and history is intended for medical issues, which may need treatment, followup or consultation on this 38-year-old male. ALLERGIES: BUPROPION, IBUPROFEN, PSEUDOEPHEDRINE. PRIMARY CARE PROVIDER: None currently. PAST MEDICAL HISTORY: Per the record, schizophrenia, insomnia, substance abuse, tobacco use. PAST SURGICAL HISTORY: Per the record, abdominal surgery. SOCIAL HISTORY: He is single. Per the record, he smokes a pack of cigarettes a day. Previous admissions shows that he drinks at least two drinks a day. FAMILY HISTORY: Unable to ascertain as the patient will not reply, does not wish to participate. LABORATORY STUDIES: WBC 12.1, hemoglobin 15.3, hematocrit 44.5, platelets 283. Sodium 144, potassium 3.5, chloride 110, CO2 of 24, BUN 11, creatinine 0.84, initial lactic acid in the emergency room was 2.7, repeat 4 hours later was 1.8. Toxicology: ETOH was 0.255. Venous blood gas showed normal pH of 7.381. HOME MEDICATIONS: - Invega Sustena 234 mg intramuscularly monthly - Seroquel 100 mg by mouth three times a day - trazodone 50 mg by mouth at night as needed for insomnia - hydroxyzine 50 mg by mouth every 6 hours as needed for anxiety - paliperidone ER 9 mg by mouth daily Unable to do a complete review of systems or physical examination as the patient refused. Electrocardiogram (EKG) in the emergency room showed sinus tachycardia, non specific ST wave changes consistent with 11/07/2018, rate was slightly increased. FAMILY HISTORY: Noncontributory. REVIEW OF SYSTEMS: No complaint of headache. No blurry or double vision. No fever. No chills. No tinnitus. No hoarseness. No difficulty swallowing. No lightheadedness. No vertigo. CARDIOVASCULAR: No complaints of chest pain, shortness of breath, palpitations, or edema. RESPIRATORY: No chronic cough. No sputum production. No hemoptysis. No orthopnea. No wheeze. GASTROINTESTINAL: No nausea, vomiting, diarrhea. No hematochezia. No melena. No complaints of abdominal pain. History of gastroesophageal reflux disease (GERD), stable. GENITOURINARY: No hematuria, dysuria, frequency. MUSCULOSKELETAL: No joint redness or swelling. ENDOCRINE: History of hypothyroidism. HEMATOLOGIC: No history of anemia. NEUROLOGIC: No history of seizures. PSYCHOLOGICAL: See psychiatric history and physical. PHYSICAL EXAMINATION: GENERAL: 24-year-old cooperative female in no acute distress. Height 66 inches, weight 55.79 kg, Body Mass Index (BMI) 19.9. VITAL SIGNS: 110/78, pulse 92, respirations 18, temperature 97.8. The patient is alert and oriented. HEENT: Pupils are equal and reactive to light. Extraocular muscles intact. Sclerae clear. Conjunctivae normal. No facial asymmetry. Pharynx, gums and tongue pink and moist. Tongue is midline. NECK: Supple without lymphadenopathy, thyromegaly or goiter. CHEST: Clear to auscultation without wheeze or retraction. HEART: Regular. ABDOMEN: Benign. Bowel sounds positive. GENITOURINARY/RECTAL: Not done. EXTREMITIES: Equal strength, full range of motion. No clubbing, cyanosis, and edema. Peripheral pulses equal and palpable bilaterally. SKIN: Warm and dry. Ball of the foot on the base of the left foot has a small planter wart. IMPRESSION/PLAN: 1. Psychiatric plan per psychiatry. She had two days left of the Flagyl and we will order that to finish her course. Advised patient to go to podiatry as an outpatient for care for her planter wart and to let her primary care provider aware as well.
[2018-12-05] MEDS: ACETAMINOPHEN TAB 650MG DOSE (2X325MG) PO PRN (15:54)
[2018-12-05 18:00] VITALS: BP 120/82
[2018-12-05 20:01] VITALS: BP 91/53
[2018-12-05] MEDS: risperiDONE 2 MG TAB PO SCH (21:00)
[2018-12-06 06:37] VITALS: BP 102/57
[2018-12-06 06:44] VITALS: BP 102/57
[2018-12-06 07:19] LABS: HEMATOCRIT 44.6 % (42.0-52.0); HEMOGLOBIN 15.5 g/dl (13.5-17.5); MEAN CORPUSCULAR HEMOGLOBIN 30.8 pg (27.0-33.0); MEAN CORPUSCULAR HGB CONC 34.8 g/dl (32.0-36.5); MEAN CORPUSCULAR VOLUME 88.5 fl (80.0-96.0); PLATELET COUNT, AUTOMATED 253 10^3/uL (150-450); RED BLOOD COUNT 5.04 10^6/uL (4.30-6.10); WHITE BLOOD COUNT 9.1 10^3/uL (4.0-10.0)
[2018-12-06] MEDS: NICOTINE 21MG/24HR 1 EA TRANSDERMAL TD SCH (09:19)
[2018-12-06] MEDS: risperiDONE 1 MG TAB PO SCH (09:19)
[2018-12-06] MEDS: FOLIC ACID 1 MG TAB PO SCH (09:19)
[2018-12-06] MEDS: MULTIVITAMINS/MINERALS THERAP 1 TAB PO SCH (09:19)
[2018-12-06] MEDS: VENLAFAXINE 37.5 MG TAB PO SCH (09:19)
[2018-12-06] MEDS: THIAMINE 100 MG TAB PO SCH (09:19)
[2018-12-06 15:15] VITALS: BP 120/84
--- NOTE | 2018-12-06 17:56 | MHIPNPDOC ---
[facility] Progress Note Progress Note DATE OF SERVICE: 12/06/18 HISTORY: CHIEF COMPLAINT: Was brought by an ambulance to the ED for taking 1 pint of Listerine and possibly some of his medications HISTORY OF PRESENT ILLNESS: Patient is a 38-year-old male, who according to Ed record: "Reason for Referral Pt was brought to the ED by EMS after taking a possible OD of a pint of Listerine & unknown amounts of Seroquel & Invega. TW does not know who called the ambulance. Pt states he does not remember anything that happened prior to waking up in the ED. Chief Complaint Pt states he does not know why he is here. TW told him that it was reported that he took an OD & he said "I might have." He denies SI or HI. He does report depression, but is guarded about stressors. Pt appears to be acutely psychotic. When TW asked him if he wanted me to call his mother he stated "No. It's ok. She can hear us." He appears to be responding to internal stimuli & is answering questions that TW did not even ask. When asked what his dx is he states "lead pencils." He also c/o something being "red hot" & states it is burning his hands. Pt is not a reliable historian. He states he does not use alcohol but was 0.255 on arrival". Today, 12/04/2018, the patient looks tired, his right lower lid looks a little swollen as if he would be retaining fluids. He is dressed in hospital clothe s and he sais "I don't know, I don't know why I'm here. Everything is so weird, I was home and next thing I know si that I'm at the ED machine" TW asks what ED machine? He responds: "Nothing". He seems very guarded, denies feeling depressed but he looks sad, his speech is slow and although he denies Av hallucinations, h e seems to be responding to internal stimuli VITAL SIGNS: See below. NEW TEST RESULTS: . CURRENT MEDICATIONS: See below. MENTAL STATUS EXAMINATION: General Appearance: appears stated age, hospital scubs/clothing, swelling on his Right lower lid, probably fluid retention Build: thin Demeanor: average Eye Contact: average Activity: average Behavior: cooperative Speech: Not spontaneous, not fluent. It is impoverished. Normal tone and volume Mood: depressed Affect: constricted/flat, congruent with mood Thought Process: incoherent, concrete, tangential, loose Thought Content (Delusions): none reported Thought Content (Other): none reported, other Thought Content (Aggressive): none reported Perception (Hallucinations): he denies but he is internally preoccupied Perception (Other): none reported Cognition (Impairment of): none reported Cognition(Intelligence Est.): average Oriented: Awake, Alert. unable to tell me today's date. he knows he is at [facility], he knows his name and his Insight: poor Judgment: Poor Psychosis: Associations, Abstract Thinking, Psychotic Perceptions (The patient denies AV hallucinations but he seems to be internally preoccupied ) Diagnoses 1. Paranoid schizophrenia 2. alcohol use disorder 3. Nicotine use disorder ASSESSMENT: Tad is pleasant and cooperative although he continues to be delusional. He is eating well, sleeping well. he denies feeling suicidal or homicidal but he responds to internal stimuli. The [facility] team has requested that we [place] [facility] [place] he has been coming [facility] the Hospital way to frequently and they said they would work with him [place] [facility] [place] i will increase his Effexor to 75 mgs PLAN: Mirtazapine (Remeron) 15 mg QHS PRN PO INSOMNIA Nicotine (Nicoderm Cq 21mg) 1 patch DAILY TD Olanzapine (ZyPREXA ZYDIS) 5 mg Q6HP PRN PO AGITATION; Risperdal 1 mg Po QAM and Risperdal 2 mgs PO QHS Effexor 75 mgs PO QAM TIME SPENT: 20 minutes Vital Signs Vital Signs Date Time Temp Pulse Resp B/P (MAP) Pulse Ox O2 Delivery O2 Flow Rate FiO2 12/06/18 15:15 94 120/84 12/06/18 06:37 98.2 18 12/05/18 06:00 92 12/03/18 23:46 Room Air Laboratory Data 24H Labs Laboratory Tests 2 12/06/18 06:58: Nucleated Red Blood Cells % (auto) 0.0 CBC/BMP Laboratory Tests 12/06/18 06:58 Red Blood Count 5.04, Mean Corpuscular Volume 88.5, Mean Corpuscular Hemoglobin 30.8, Mean Corpuscular Hemoglobin Concent 34.8, Red Cell Distribution Width 12.3 Current Medications Current Medications Acetaminophen (Tylenol Tab) 650 mg Q6HP PRN PO HEADACHE or DISCOMFORT Last administered on 12/05/18at 15:54; Start 12/04/18 at 00:15 Al Hydrox/Mg Hydrox/Simethicone (Mylanta) 30 ml Q4HP PRN PO HEARTBURN/INDIGESTION; Start 12/04/18 at 00:15 Folic Acid (Folic Acid) 1 mg DAILY PO Last administered on 12/06/18at 09:19; Start 12/04/18 at 09:00 Home Med (Med Rec Complete!) ASDIRECTED XX ; Start 12/04/18 at 09:45; Stop 12/04/18 at 09:45; Status DC Lorazepam (Ativan) 2 mg ASDIRECTED PRN PO SEE PROTOCOL; Start 12/04/18 at 00:15 Magnesium Hydroxide (Milk Of Magnesia) 30 ml DAILYPRN PRN PO CONSTIPATION; Start 12/04/18 at 00:15 Mirtazapine (Remeron) 15 mg QHS PRN PO INSOMNIA Last administered on 12/04/18at 21:20; Start 12/04/18 at 01:45 Mirtazapine (Remeron) 15 mg QHSP PO ; Start 12/04/18 at 00:15; Status UNV Multivitamins (Theragram-M) 1 tab DAILY PO Last administered on 12/06/18at 09:19; Start 12/04/18 at 09:00 Nicotine (Nicoderm Cq 21mg) 1 patch DAILY TD Last administered on 12/06/18at 09:19; Start 12/04/18 at 09:00 Olanzapine (ZyPREXA ZYDIS) 5 mg Q6HP PRN PO AGITATION; Start 12/04/18 at 00:15 Paliperidone (Invega) 3 mg BID PO Last administered on 12/05/18at 08:48; Start 12/04/18 at 09:00; Stop 12/05/18 at 15:59; Status DC Risperidone (RisperDAL) 1 mg QAM PO Last administered on 12/06/18at 09:19; Start 12/06/18 at 09:00 Risperidone (RisperDAL) 2 mg QHS PO ; Start 12/05/18 at 21:00 Thiamine HCl (Thiamine HCl) 100 mg BID PO Last administered on 12/06/18at 09:19; Start 12/04/18 at 00:57; Stop 12/06/18 at 09:01; Status DC Venlafaxine HCl (Effexor) 37.5 mg DAILY PO Last administered on 12/06/18at 09:19; Start 12/05/18 at 09:00 Allergies Coded Allergies: Bupropion (Unverified Allergy, Unknown, 04/23/13) Ibuprofen (Verified Allergy, Unknown, 11/07/18) Pseudoephedrine (Verified Allergy, Unknown, 11/07/18) CAMMY GEORGE MD Dec 06, 2018 17:56
[2018-12-06 18:15] VITALS: BP 123/84
[2018-12-06] MEDS: risperiDONE 2 MG TAB PO SCH (21:11)
[2018-12-07 06:17] VITALS: BP 124/66
[2018-12-07 06:31] VITALS: BP 124/66
[2018-12-07] MEDS: risperiDONE 1 MG TAB PO SCH (08:48)
[2018-12-07] MEDS: MULTIVITAMINS/MINERALS THERAP 1 TAB PO SCH (08:48)
[2018-12-07] MEDS: FOLIC ACID 1 MG TAB PO SCH (08:48)
[2018-12-07] MEDS: VENLAFAXINE 37.5 MG TAB PO SCH (08:49)
[2018-12-07] MEDS: NICOTINE 21MG/24HR 1 EA TRANSDERMAL TD SCH (09:00)
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
[2018-12-07 18:24] VITALS: BP 122/76
[2018-12-07 19:30] VITALS: BP 123/76
[2018-12-07] MEDS: BENZTROPINE 1 MG TAB PO SCH (22:08)
[2018-12-07] MEDS: risperiDONE 3 MG TAB PO SCH (22:08)
[2018-12-08 06:41] VITALS: BP 115/68
[2018-12-08] MEDS: NICOTINE 21MG/24HR 1 EA TRANSDERMAL TD SCH (08:24)
[2018-12-08] MEDS: risperiDONE 2 MG TAB PO SCH (08:24)
[2018-12-08] MEDS: VENLAFAXINE 37.5 MG TAB PO SCH (08:24)
[2018-12-08] MEDS: MULTIVITAMINS/MINERALS THERAP 1 TAB PO SCH (08:25)
[2018-12-08] MEDS: BENZTROPINE 1 MG TAB PO SCH ×2 (08:25→22:03)
[2018-12-08] MEDS: FOLIC ACID 1 MG TAB PO SCH (08:25)
[2018-12-08] MEDS: OLANZapine ORAL DISINTEGRATING TAB 5MG PO PRN (15:19)
--- NOTE | 2018-12-08 17:51 | MHIPNPDOC ---
[facility] Progress Note Progress Note DATE OF SERVICE: 12/08/18 HISTORY: CHIEF COMPLAINT: Was brought by an ambulance to the ED for taking 1 pint of Listerine and possibly some of his medications HISTORY OF PRESENT ILLNESS: Patient is a 38-year-old male, who according to Ed record: "Reason for Referral Pt was brought to the ED by EMS after taking a possible OD of a pint of Listerine & unknown amounts of Seroquel & Invega. TW does not know who called the ambulance. Pt states he does not remember anything that happened prior to waking up in the ED. Chief Complaint Pt states he does not know why he is here. TW told him that it was reported that he took an OD & he said "I might have." He denies SI or HI. He does report depression, but is guarded about stressors. Pt appears to be acutely psychotic. When TW asked him if he wanted me to call his mother he stated "No. It's ok. She can hear us." He appears to be responding to internal stimuli & is answering questions that TW did not even ask. When asked what his dx is he states "lead pencils." He also c/o something being "red hot" & states it is burning his hands. Pt is not a reliable historian. He states he does not use alcohol but was 0.255 on arrival". Today, 12/04/2018, the patient looks tired, his right lower lid looks a little swollen as if he would be retaining fluids. He is dressed in hospital clothe s and he sais "I don't know, I don't know why I'm here. Everything is so weird, I was home and next thing I know si that I'm at the ED machine" TW asks what ED machine? He responds: "Nothing". He seems very guarded, denies feeling depressed but he looks sad, his speech is slow and although he denies Av hallucinations, he seems to be responding to internal stimuli VITAL SIGNS: See below. NEW TEST RESULTS: . CURRENT MEDICATIONS: See below. MENTAL STATUS EXAMINATION: General Appearance: appears stated age, hospital scubs/clothing, swelling on his Right lower lid, probably fluid retention Build: thin Demeanor: average Eye Contact: average Activity: average Behavior: cooperative Speech: Less fluent today, normal rate, tone and volume Mood: depressed Affect: constricted/flat, congruent with mood Thought Process: incoherent, concrete, tangential, loose Thought Content (Delusions): none reported Thought Content (Other): none reported, other Thought Content (Aggressive): none reported Perception (Hallucinations): He says that he can hear me from his room (my office is two rooms away from his) Perception (Other): none reported Cognition (Impairment of): none reported Cognition(Intelligence Est.): average Oriented: Awake, Alert. Insight: poor Judgment: Poor Psychosis: Associations, Abstract Thinking, Psychotic Perceptions (The patient denies AV hallucinations but he seems to be internally preoccupied ) Diagnoses 1. Paranoid schizophrenia 2. alcohol use disorder 3. Nicotine use disorder ASSESSMENT: Abdulaziz is pleasant and cooperative but at the same guarded when I ask him if he is experiencing hallucinations or thought delusions. He denies them but later, he says that he still can hear my voice from his room and when I ask him how could that e possible, because there's two rooms between my room and his room, he looks at me and says "I don't know". He is not experiencing medication side effects at this time PLAN: Mirtazapine (Remeron) 15 mg QHS PRN PO INSOMNIA Nicotine (Nicoderm Cq 21mg) 1 patch DAILY TD Olanzapine (ZyPREXA ZYDIS) 5 mg Q6HP PRN PO AGITATION; Risperdal 2 mg Po QAM and Risperdal 3 mgs PO QHS Effexor 75 mgs PO QAM Cogentin 1 mg PO BID TIME SPENT: 20 minutes TIME SPENT: minutes. Vital Signs Vital Signs Date Time Temp Pulse Resp B/P (MAP) Pulse Ox O2 Delivery O2 Flow Rate FiO2 12/08/18 08:42 Room Air 12/08/18 06:41 99 115/68 12/08/18 06:41 97.2 14 12/05/18 06:00 92 Current Medications Current Medications Acetaminophen (Tylenol Tab) 650 mg Q6HP PRN PO HEADACHE or DISCOMFORT Last administered on 12/05/18at 15:54; Start 12/04/18 at 00:15 Al Hydrox/Mg Hydrox/Simethicone (Mylanta) 30 ml Q4HP PRN PO HEARTBURN/INDIGESTION; Start 12/04/18 at 00:15 Benztropine Mesylate (Cogentin) 1 mg BID PO Last administered on 12/08/18 08:25; Start 12/07/18 at 21:00 Folic Acid (Folic Acid) 1 mg DAILY PO Last administered on 12/08/18 08:25; Start 12/04/18 at 09:00 Home Med (Med Rec Complete!) ASDIRECTED XX ; Start 12/04/18 at 09:45; Stop 12/04/18 at 09:45; Status DC Lorazepam (Ativan) 2 mg ASDIRECTED PRN PO SEE PROTOCOL; Start 12/04/18 at 00:15 Magnesium Hydroxide (Milk Of Magnesia) 30 ml DAILYPRN PRN PO CONSTIPATION; Start 12/04/18 at 00:15 Mirtazapine (Remeron) 15 mg QHS PRN PO INSOMNIA Last administered on 12/04/18 21:20; Start 12/04/18 at 01:45 Mirtazapine (Remeron) 15 mg QHSP PO ; Start 12/04/18 at 00:15; Status UNV Multivitamins (Theragram-M) 1 tab DAILY PO Last administered on 12/08/18 08:25; Start 12/04/18 at 09:00 Nicotine (Nicoderm Cq 21mg) 1 patch DAILY TD Last administered on 12/08/18 08:24; Start 12/04/18 at 09:00 Olanzapine (ZyPREXA ZYDIS) 5 mg Q6HP PRN PO AGITATION Last administered on 12/08/18 15:19; Start 12/04/18 at 00:15 Paliperidone (Invega) 3 mg BID PO Last administered on 12/05/18 08:48; Start 12/04/18 at 09:00; Stop 12/05/18 at 15:59; Status DC Risperidone (RisperDAL) 1 mg QAM PO Last administered on 12/07/18 08:48; Start 12/06/18 at 09:00; Stop 12/07/18 at 17:32; Status DC Risperidone (RisperDAL) 2 mg QAM PO Last administered on 12/08/18 08:24; Start 12/08/18 at 09:00 Risperidone (RisperDAL) 2 mg QHS PO Last administered on 3/5/19at 21:11; Start 12/05/18 at 21:00; Stop 12/07/18 at 17:33; Status DC Risperidone (RisperDAL) 3 mg QHS PO Last administered on 12/07/18at 22:08; Start 12/07/18 at 21:00 Thiamine HCl (Thiamine HCl) 100 mg BID PO Last administered on 12/06/18at 09:19; Start 12/04/18 at 00:57; Stop 12/06/18 at 09:01; Status DC Venlafaxine HCl (Effexor) 37.5 mg DAILY PO Last administered on 12/06/18at 09:19; Start 12/05/18 at 09:00; Stop 12/06/18 at 17:58; Status DC Venlafaxine HCl (Effexor) 75 mg DAILY PO Last administered on 12/08/18at 08:24; Start 12/07/18 at 09:00 Allergies Coded Allergies: Bupropion (Unverified Allergy, Unknown, 04/23/13) Ibuprofen (Verified Allergy, Unknown, 11/07/18) Pseudoephedrine (Verified Allergy, Unknown, 11/07/18) CAMMY GEORGE MD Dec 08, 2018 17:51
[2018-12-08 18:00] VITALS: BP 126/76
[2018-12-08 21:00] VITALS: BP 124/68
[2018-12-08] MEDS: risperiDONE 3 MG TAB PO SCH (22:03)
[2018-12-09 06:00] VITALS: BP 120/60
[2018-12-09] MEDS: NICOTINE 21MG/24HR 1 EA TRANSDERMAL TD SCH (08:43)
[2018-12-09] MEDS: BENZTROPINE 1 MG TAB PO SCH ×2 (08:43→20:27)
[2018-12-09] MEDS: FOLIC ACID 1 MG TAB PO SCH (08:43)
[2018-12-09] MEDS: VENLAFAXINE 37.5 MG TAB PO SCH (08:43)
[2018-12-09] MEDS: risperiDONE 2 MG TAB PO SCH (08:43)
[2018-12-09] MEDS: MULTIVITAMINS/MINERALS THERAP 1 TAB PO SCH (08:44)
[2018-12-09 18:10] VITALS: BP 136/82
[2018-12-09] MEDS: risperiDONE 3 MG TAB PO SCH (20:27)
--- NOTE | 2018-12-09 20:57 | MHIPNPDOC ---
[facility] Progress Note Progress Note DATE OF SERVICE: 12/09/18 CHIEF COMPLAINT: Was brought by an ambulance to the ED for taking 1 pint of Listerine and possibly some of his medications HISTORY OF PRESENT ILLNESS: Patient is a 38-year-old male, who according to Ed record: "Reason for Referral Pt was brought to the ED by EMS after taking a possible OD of a pint of Listerine & unknown amounts of Seroquel & Invega. TW does not know who called the ambulance. Pt states he does not remember anything that happened prior to waking up in the ED. Chief Complaint Pt states he does not know why he is here. TW told him that it was reported that he took an OD & he said "I might have." He denies SI or HI. He does report depression, but is guarded about stressors. Pt appears to be acutely psychotic. When TW asked him if he wanted me to call his mother he stated "No. It's ok. She can hear us." He appears to be responding to internal stimuli & is answering questions that TW did not even ask. When asked what his dx is he states "lead pencils." He also c/o something being "red hot" & states it is burning his hands. Pt is not a reliable historian. He states he does not use alcohol but was 0.255 on arrival". Today, 12/04/2018, the patient looks tired, his right lower lid looks a little swollen as if he would be retaining fluids. He is dressed in hospital clothe s and he sais "I don't know, I don't know why I'm here. Everything is so weird, I was home and next thing I know si that I'm at the ED machine" TW asks what ED machine? He responds: "Nothing". He seems very guarded, denies feeling depressed but he looks sad, his speech is slow and although he denies Av hallucinations, he seems to be responding to internal stimuli VITAL SIGNS: See below. NEW TEST RESULTS: . CURRENT MEDICATIONS: See below. MENTAL STATUS EXAMINATION: General Appearance: appears stated age, hospital scrubs/clothing, swelling on his Right lower lid, probably fluid retention Build: thin Demeanor: cooperative, pleasant Eye Contact: average Activity: a little anxious Behavior: cooperative Speech: Fluent and spontaneous Mood: anxious Affect: congruent with mood Thought Process: incoherent, concrete, tangential, loose Thought Content (Delusions): bizarre delusions about computers being controlled by chips, chips being placed everywhere and controlling us, about a computer "being sucked in by an JUANITA machine". Paranoid delusions Thought Content (Other): none reported, other Thought Content (Aggressive): none reported Perception (Hallucinations): Responds to internal stimuli, laughs with people that are not there in the room Perception (Other): none reported Cognition (Impairment of): none reported Cognition(Intelligence Est.): average Oriented: Awake, Alert. Insight: poor Judgment: Poor Psychosis: Associations, Abstract Thinking, Psychotic Perceptions (The patient denies AV hallucinations but he seems to be internally preoccupied ) Diagnoses 1. Paranoid schizophrenia 2. alcohol use disorder 3. Nicotine use disorder ASSESSMENT: Tad continues to be pleasant and cooperative but he becomes anxious when he shows me a piece of paper with three different rows of numbers in it. I start reading it out loud and he says, "no, not out loud Doc". From there on, he goes on to describe how a computer was "sucked: by an JUANITA machine, how he has discovered that someone is controlling the computers and that he was able to fix one of the computers at the Unit. He talks about the chips that are everywhere, including the bauer and that control everything we do and say. PLAN: Mirtazapine (Remeron) 15 mg QHS PRN PO INSOMNIA Nicotine (Nicoderm Cq 21mg) 1 patch DAILY TD Olanzapine (ZyPREXA ZYDIS) 5 mg Q6HP PRN PO AGITATION; Risperdal 2 mg Po QAM and Risperdal 3 mgs PO QHS Effexor 75 mgs PO QAM Cogentin 1 mg PO BID TIME SPENT: 20 minutes TIME SPENT: minutes. Vital Signs Vital Signs Date Time Temp Pulse Resp B/P (MAP) Pulse Ox O2 Delivery O2 Flow Rate FiO2 12/09/18 18:10 98.5 91 16 136/82 (100) 12/08/18 08:42 Room Air 12/05/18 06:00 92 Current Medications Current Medications Acetaminophen (Tylenol Tab) 650 mg Q6HP PRN PO HEADACHE or DISCOMFORT Last administered on 12/05/18at 15:54; Start 12/04/18 at 00:15 Al Hydrox/Mg Hydrox/Simethicone (Mylanta) 30 ml Q4HP PRN PO HEARTBURN/INDIGESTION; Start 12/04/18 at 00:15 Benztropine Mesylate (Cogentin) 1 mg BID PO Last administered on 12/09/18 20:2 7; Start 12/07/18 at 21:00 Folic Acid (Folic Acid) 1 mg DAILY PO Last administered on 12/09/18 08:43; Start 12/04/18 at 09:00 Home Med (Med Rec Complete!) ASDIRECTED XX ; Start 12/04/18 at 09:45; Stop 12/04/18 at 09:45; Status DC Lorazepam (Ativan) 2 mg ASDIRECTED PRN PO SEE PROTOCOL; Start 12/04/18 at 00:15; Status Cancel Magnesium Hydroxide (Milk Of Magnesia) 30 ml DAILYPRN PRN PO CONSTIPATION; Start 12/04/18 at 00:15 Mirtazapine (Remeron) 15 mg QHS PRN PO INSOMNIA Last administered on 12/04/18 21:20; Start 12/04/18 at 01:45 Mirtazapine (Remeron) 15 mg QHSP PO ; Start 12/04/18 at 00:15; Status UNV Multivitamins (Theragram-M) 1 tab DAILY PO Last administered on 12/09/18 08:44; Start 12/04/18 at 09:00 Nicotine (Nicoderm Cq 21mg) 1 patch DAILY TD Last administered on 12/09/18 08:43; Start 12/04/18 at 09:00 Olanzapine (ZyPREXA ZYDIS) 5 mg Q6HP PRN PO AGITATION Last administered on 12/08/18 15:19; Start 12/04/18 at 00:15 Paliperidone (Invega) 3 mg BID PO Last administered on 12/05/18 08:48; Start 12/04/18 at 09:00; Stop 12/05/18 at 15:59; Status DC Risperidone (RisperDAL) 1 mg QAM PO Last administered on 12/07/18 08:48; Start 12/06/18 at 09:00; Stop 12/07/18 at 17:32; Status DC Risperidone (RisperDAL) 2 mg QAM PO Last administered on 12/09/18 08:43; Start 12/08/18 at 09:00 Risperidone (RisperDAL) 2 mg QHS PO Last administered on 12/06/18 21:11; Start 12/05/18 at 21:00; Stop 12/07/18 at 17:33; Status DC Risperidone (RisperDAL) 3 mg QHS PO Last administered on 12/09/18 20:27; Start 12/07/18 at 21:00 Thiamine HCl (Thiamine HCl) 100 mg BID PO Last administered on 12/06/18 09:19; Start 12/04/18 at 00:57; Stop 12/06/18 at 09:01; Status DC Venlafaxine HCl (Effexor) 37.5 mg DAILY PO Last administered on 12/06/18 09:19; Start 12/05/18 at 09:00; Stop 12/06/18 at 17:58; Status DC Venlafaxine HCl (Effexor) 75 mg DAILY PO Last administered on 12/09/18 08:43; Start 12/07/18 at 09:00 Allergies Coded Allergies: Bupropion (Unverified Allergy, Unknown, 04/23/13) Ibuprofen (Verified Allergy, Unknown, 11/07/18) Pseudoephedrine (Verified Allergy, Unknown, 11/07/18) CAMMY GEORGE MD Dec 09, 2018 20:57
[2018-12-10 06:17] VITALS: BP 125/82
[2018-12-10] MEDS: VENLAFAXINE 37.5 MG TAB PO SCH (08:51)
[2018-12-10] MEDS: MULTIVITAMINS/MINERALS THERAP 1 TAB PO SCH (08:51)
[2018-12-10] MEDS: NICOTINE 21MG/24HR 1 EA TRANSDERMAL TD SCH (08:51)
[2018-12-10] MEDS: BENZTROPINE 1 MG TAB PO SCH ×2 (08:51→22:07)
[2018-12-10] MEDS: risperiDONE 2 MG TAB PO SCH (08:51)
[2018-12-10] MEDS: FOLIC ACID 1 MG TAB PO SCH (08:51)
[2018-12-10 18:37] VITALS: BP 127/71
[2018-12-10] MEDS: risperiDONE 3 MG TAB PO SCH (22:07)
[2018-12-11 06:12] VITALS: BP 111/53
[2018-12-11] MEDS: FOLIC ACID 1 MG TAB PO SCH (08:36)
[2018-12-11] MEDS: risperiDONE 2 MG TAB PO SCH (08:36)
[2018-12-11] MEDS: BENZTROPINE 1 MG TAB PO SCH ×2 (08:36→20:00)
[2018-12-11] MEDS: VENLAFAXINE 37.5 MG TAB PO SCH (08:36)
[2018-12-11] MEDS: MULTIVITAMINS/MINERALS THERAP 1 TAB PO SCH (08:36)
[2018-12-11] MEDS: NICOTINE 21MG/24HR 1 EA TRANSDERMAL TD SCH (08:37)
[2018-12-11 18:00] VITALS: BP 129/74
[2018-12-11] MEDS: risperiDONE 3 MG TAB PO SCH (20:00)
[2018-12-12 06:19] VITALS: BP 114/69
[2018-12-12] MEDS: FOLIC ACID 1 MG TAB PO SCH (08:18)
[2018-12-12] MEDS: risperiDONE 2 MG TAB PO SCH (08:18)
[2018-12-12] MEDS: NICOTINE 21MG/24HR 1 EA TRANSDERMAL TD SCH (08:18)
[2018-12-12] MEDS: MULTIVITAMINS/MINERALS THERAP 1 TAB PO SCH (08:18)
[2018-12-12] MEDS: BENZTROPINE 1 MG TAB PO SCH ×2 (08:18→21:12)
[2018-12-12] MEDS: VENLAFAXINE 37.5 MG TAB PO SCH (08:18)
[2018-12-12] MEDS ORDERED: TUBERCULIN PPD 5 UNITS/0.1 ML ID ONE (10:30)
[2018-12-12 18:00] VITALS: BP 129/75
[2018-12-12] MEDS: risperiDONE 3 MG TAB PO SCH (21:12)
--- NOTE | 2018-12-12 21:45 | MHIPNPDOC ---
[facility] Progress Note Progress Note DATE OF SERVICE: 12/12/18 CHIEF COMPLAINT: Was brought by an ambulance to the ED for taking 1 pint of Listerine and possibly some of his medications HISTORY OF PRESENT ILLNESS: Patient is a 38-year-old male, who according to Ed record: "Reason for Referral Pt was brought to the ED by EMS after taking a possible OD of a pint of Listerine & unknown amounts of Seroquel & Invega. TW does not know who called the ambulance. Pt states he does not remember anything that happened prior to waking up in the ED. Chief Complaint Pt states he does not know why he is here. TW told him that it was reported that he took an OD & he said "I might have." He denies SI or HI. He does report depression, but is guarded about stressors. Pt appears to be acutely psychotic. When TW asked him if he wanted me to call his mother he stated "No. It's ok. She can hear us." He appears to be responding to internal stimuli & is answering questions that TW did not even ask. When asked what his dx is he states "lead pencils." He also c/o something being "red hot" & states it is burning his hands. Pt is not a reliable historian. He states he does not use alcohol but was 0.255 on arrival". Today, 12/04/2018, the patient looks tired, his right lower lid looks a little swollen as if he would be retaining fluids. He is dressed in hospital clothe s and he sais "I don't know, I don't know why I'm here. Everything is so weird, I was home and next thing I know si that I'm at the ED machine" TW asks what ED machine? He responds: "Nothing". He seems very guarded, denies feeling depressed but he looks sad, his speech is slow and although he denies Av hallucinations, h e seems to be responding to internal stimuli VITAL SIGNS: See below. NEW TEST RESULTS: . CURRENT MEDICATIONS: See below. MENTAL STATUS EXAMINATION: General Appearance: appears stated age, hospital scrubs/clothing, swelling on his Right lower lid, probably fluid retention Build: thin Demeanor: calm, guarded Eye Contact: average Activity: a little anxious Behavior: cooperative Speech: impoverished today Mood: anxious Affect: congruent with mood Thought Process: incoherent, concrete, tangential, loose Thought Content (Delusions): he is very guarded today, almost non verbal. He is responding to internal stimuli Thought Content (Other): none reported, other Thought Content (Aggressive): none reported Perception (Hallucinations): Responds to internal stimuli Perception (Other): none reported Cognition (Impairment of): none reported Cognition(Intelligence Est.): average Oriented: Awake, Alert. Insight: poor Judgment: Poor Psychosis: Associations, Abstract Thinking, Psychotic Perceptions (The patient denies AV hallucinations but he seems to be internally preoccupied ) Diagnoses 1. Paranoid schizophrenia 2. alcohol use disorder 3. Nicotine use disorder ASSESSMENT: Tad continues to be pleasant and cooperative but he remains guarded and anxious. Today, he didn't want to say much when we met, except that he had been sleeping well and eating well. He is still psychotic, he still responds to internal stimuli. Responds well to medications PLAN: Mirtazapine (Remeron) 15 mg QHS PRN PO INSOMNIA Nicotine (Nicoderm Cq 21mg) 1 patch DAILY TD Olanzapine (ZyPREXA ZYDIS) 5 mg Q6HP PRN PO AGITATION; Risperdal 2 mg Po QAM and Risperdal 3 mgs PO QHS Effexor 75 mgs PO QAM Cogentin 1 mg PO BID TIME SPENT: 20 minutes Vital Signs Vital Signs Date Time Temp Pulse Resp B/P (MAP) Pulse Ox O2 Delivery O2 Flow Rate FiO2 12/12/18 18:00 97.3 77 18 129/75 (93) 12/08/18 08:42 Room Air Current Medications Current Medications Acetaminophen (Tylenol Tab) 650 mg Q6HP PRN PO HEADACHE or DISCOMFORT Last administered on 12/05/18at 15:54; Start 12/04/18 at 00:15 Al Hydrox/Mg Hydrox/Simethicone (Mylanta) 30 ml Q4HP PRN PO HEARTBURN/INDIGESTION; Start 12/04/18 at 00:15 Benztropine Mesylate (Cogentin) 1 mg BID PO Last administered on 12/12/18at 21:12; Start 12/07/18 at 21:00 Folic Acid (Folic Acid) 1 mg DAILY PO Last administered on 12/12/18at 08:18; St art 12/04/18 at 09:00 Home Med (Med Rec Complete!) ASDIRECTED XX ; Start 12/04/18 at 09:45; Stop 12/04/18 at 09:45; Status DC Lorazepam (Ativan) 2 mg ASDIRECTED PRN PO SEE PROTOCOL; Start 12/04/18 at 00:15; Status Cancel Magnesium Hydroxide (Milk Of Magnesia) 30 ml DAILYPRN PRN PO CONSTIPATION; Start 12/04/18 at 00:15 Mirtazapine (Remeron) 15 mg QHS PRN PO INSOMNIA Last administered on 12/04/18 21:20; Start 12/04/18 at 01:45 Mirtazapine (Remeron) 15 mg QHSP PO ; Start 12/04/18 at 00:15; Status UNV Multivitamins (Theragram-M) 1 tab DAILY PO Last administered on 12/12/18 08:18; Start 12/04/18 at 09:00 Nicotine (Nicoderm Cq 21mg) 1 patch DAILY TD Last administered on 12/12/18 08:18; Start 12/04/18 at 09:00 Olanzapine (ZyPREXA ZYDIS) 5 mg Q6HP PRN PO AGITATION Last administered on 12/08/18 15:19; Start 12/04/18 at 00:15 Paliperidone (Invega) 3 mg BID PO Last administered on 12/05/18 08:48; Start 12/04/18 at 09:00; Stop 12/05/18 at 15:59; Status DC Risperidone (RisperDAL) 1 mg QAM PO Last administered on 12/07/18at 08:48; Start 12/06/18 at 09:00; Stop 12/07/18 at 17:32; Status DC Risperidone (RisperDAL) 2 mg QAM PO Last administered on 12/12/18 08:18; Start 12/08/18 at 09:00 Risperidone (RisperDAL) 2 mg QHS PO Last administered on 12/06/18 21:11; Start 12/05/18 at 21:00; Stop 12/07/18 at 17:33; Status DC Risperidone (RisperDAL) 3 mg QHS PO Last administered on 12/12/18at 21:12; Start 12/07/18 at 21:00 Thiamine HCl (Thiamine HCl) 100 mg BID PO Last administered on 12/06/18at 09:19; Start 12/04/18 at 00:57; Stop 12/06/18 at 09:01; Status DC Venlafaxine HCl (Effexor) 37.5 mg DAILY PO Last administered on 12/06/18at 09:19; Start 12/05/18 at 09:00; Stop 12/06/18 at 17:58; Status DC Venlafaxine HCl (Effexor) 75 mg DAILY PO Last administered on 12/12/18at 08:18; Start 12/07/18 at 09:00 Allergies Coded Allergies: Bupropion (Unverified Allergy, Unknown, 04/23/13) Ibuprofen (Verified Allergy, Unknown, 11/07/18) Pseudoephedrine (Verified Allergy, Unknown, 11/07/18) CAMMY GEORGE MD Dec 12, 2018 21:45
[2018-12-13 06:44] VITALS: BP 134/67
[2018-12-13] MEDS: risperiDONE 2 MG TAB PO SCH (09:01)
[2018-12-13] MEDS: FOLIC ACID 1 MG TAB PO SCH (09:01)
[2018-12-13] MEDS: NICOTINE 21MG/24HR 1 EA TRANSDERMAL TD SCH (09:01)
[2018-12-13] MEDS: VENLAFAXINE 37.5 MG TAB PO SCH (09:02)
[2018-12-13] MEDS: BENZTROPINE 1 MG TAB PO SCH ×2 (09:02→21:40)
[2018-12-13] MEDS: MULTIVITAMINS/MINERALS THERAP 1 TAB PO SCH (09:02)
[2018-12-13] MEDS: OLANZapine ORAL DISINTEGRATING TAB 5MG PO PRN (11:42)
[2018-12-13 18:00] VITALS: BP 103/69
--- NOTE | 2018-12-13 21:12 | MHIPNPDOC ---
[facility] Progress Note Progress Note DATE OF SERVICE: 12/13/18 CHIEF COMPLAINT: Was brought by an ambulance to the ED for taking 1 pint of Listerine and possibly some of his medications HISTORY OF PRESENT ILLNESS: Patient is a 38-year-old male, who according to Ed record: "Reason for Referral Pt was brought to the ED by EMS after taking a possible OD of a pint of Listerine & unknown amounts of Seroquel & Invega. TW does not know who called the ambulance. Pt states he does not remember anything that happened prior to waking up in the ED. Chief Complaint Pt states he does not know why he is here. TW told him that it was reported that he took an OD & he said "I might have." He denies SI or HI. He does report depression, but is guarded about stressors. Pt appears to be acutely psychotic. When TW asked him if he wanted me to call his mother he stated "No. It's ok. She can hear us." He appears to be responding to internal stimuli & is answering questions that TW did not even ask. When asked what his dx is he states "lead pencils." He also c/o something being "red hot" & states it is burning his hands. Pt is not a reliable historian. He states he does not use alcohol but was 0.255 on arrival". Today, 12/04/2018, the patient looks tired, his right lower lid looks a little swollen as if he would be retaining fluids. He is dressed in hospital clothe s and he sais "I don't know, I don't know why I'm here. Everything is so weird, I was home and next thing I know si that I'm at the ED machine" TW asks what ED machine? He responds: "Nothing". He seems very guarded, denies feeling depressed but he looks sad, his speech is slow and although he denies Av hallucinations, he seems to be responding to internal stimuli VITAL SIGNS: See below. NEW TEST RESULTS: . CURRENT MEDICATIONS: See below. MENTAL STATUS EXAMINATION: General Appearance: appears stated age, hospital scrubs/clothing, swelling on his Right lower lid, probably fluid retention Build: thin Demeanor: calm, guarded Eye Contact: average Activity: anxious Behavior: cooperative Speech: spontaneous, fluent, normal rate, tone and volume Mood: anxious Affect: congruent with mood Thought Process: incoherent, concrete, tangential, loose Thought Content (Delusions): he is paranoid Thought Content (Other): none reported, other Thought Content (Aggressive): none reported Perception (Hallucinations): Responds to internal stimuli Perception (Other): none reported Cognition (Impairment of): none reported Cognition(Intelligence Est.): average Oriented: Awake, Alert. Insight: poor Judgment: Poor Psychosis: Associations, Abstract Thinking, Psychotic Perceptions (The patient denies AV hallucinations but he seems to be internally preoccupied ) Diagnoses 1. Paranoid schizophrenia 2. alcohol use disorder 3. Nicotine use disorder ASSESSMENT: Tad approached me today and he said that he wanted to be discharged, he does not want to go to [facility]. I explained that the [facility] would be working with him and with [facility], he says that is unnecessary, he says that he has been readmitted because he gets stressed out and mentions a family member, his brother as a source of stress, but he is unable to describe what exactly is the problem with his brother. PLAN: Mirtazapine (Remeron) 15 mg QHS PRN PO INSOMNIA Nicotine (Nicoderm Cq 21mg) 1 patch DAILY TD Olanzapine (ZyPREXA ZYDIS) 5 mg Q6HP PRN PO AGITATION; Risperdal 2 mg Po QAM and Risperdal 3 mgs PO QHS Effexor 75 mgs PO QAM Cogentin 1 mg PO BID TIME SPENT: 20 minutes Vital Signs Vital Signs Date Time Temp Pulse Resp B/P (MAP) Pulse Ox O2 Delivery O2 Flow Rate FiO2 12/13/18 18:00 98.2 78 16 103/69 (80) 12/13/18 08:23 Room Air Current Medications Current Medications Acetaminophen (Tylenol Tab) 650 mg Q6HP PRN PO HEADACHE or DISCOMFORT Last ad ministered on 12/05/18at 15:54; Start 12/04/18 at 00:15 Al Hydrox/Mg Hydrox/Simethicone (Mylanta) 30 ml Q4HP PRN PO HEARTBURN/ROBERT GESTION; Start 12/04/18 at 00:15 Benztropine Mesylate (Cogentin) 1 mg BID PO Last administered on 12/13/18at 09:02; Start 12/07/18 at 21:00 Folic Acid (Folic Acid) 1 mg DAILY PO Last administered on 12/13/18at 09:01; Start 12/04/18 at 09:00 Home Med (Med Rec Complete!) ASDIRECTED XX ; Start 12/04/18 at 09:45; Stop 12/04/18 at 09:45; Status DC Lorazepam (Ativan) 2 mg ASDIRECTED PRN PO SEE PROTOCOL; Start 12/04/18 at 00:15; Status Cancel Magnesium Hydroxide (Milk Of Magnesia) 30 ml DAILYPRN PRN PO CONSTIPATION; Start 12/04/18 at 00:15 Mirtazapine (Remeron) 15 mg QHS PRN PO INSOMNIA Last administered on 12/04/18 21:20; Start 12/04/18 at 01:45 Mirtazapine (Remeron) 15 mg QHSP PO ; Start 12/04/18 at 00:15; Status UNV Multivitamins (Theragram-M) 1 tab DAILY PO Last administered on 12/13/18 09:02; Start 12/04/18 at 09:00 Nicotine (Nicoderm Cq 21mg) 1 patch DAILY TD Last administered on 12/13/18 09:01; Start 12/04/18 at 09:00 Olanzapine (ZyPREXA ZYDIS) 5 mg Q6HP PRN PO AGITATION Last administered on 12/13/18 11:42; Start 12/04/18 at 00:15 Paliperidone (Invega) 3 mg BID PO Last administered on 12/05/18 08:48; Start 12/04/18 at 09:00; Stop 12/05/18 at 15:59; Status DC Risperidone (RisperDAL) 1 mg QAM PO Last administered on 12/07/18 08:48; Start 12/06/18 at 09:00; Stop 12/07/18 at 17:32; Status DC Risperidone (RisperDAL) 2 mg QAM PO Last administered on 12/13/18 09:01; Start 12/08/18 at 09:00 Risperidone (RisperDAL) 2 mg QHS PO Last administered on 12/06/18 21:11; Start 12/05/18 at 21:00; Stop 12/07/18 at 17:33; Status DC Risperidone (RisperDAL) 3 mg QHS PO Last administered on 12/12/18at 21:12; Start 12/07/18 at 21:00 Thiamine HCl (Thiamine HCl) 100 mg BID PO Last administered on 12/06/18at 09:19; Start 12/04/18 at 00:57; Stop 12/06/18 at 09:01; Status DC Venlafaxine HCl (Effexor) 37.5 mg DAILY PO Last administered on 12/06/18at 09:19; Start 12/05/18 at 09:00; Stop 12/06/18 at 17:58; Status DC Venlafaxine HCl (Effexor) 75 mg DAILY PO Last administered on 12/13/18at 09:02; Start 12/07/18 at 09:00 Allergies Coded Allergies: Bupropion (Unverified Allergy, Unknown, 04/23/13) Ibuprofen (Verified Allergy, Unknown, 11/07/18) Pseudoephedrine (Verified Allergy, Unknown, 11/07/18) CAMMY GEORGE MD Dec 13, 2018 21:12
[2018-12-13] MEDS: risperiDONE 3 MG TAB PO SCH (21:40)
[2018-12-14 06:00] VITALS: BP 103/62
[2018-12-14] MEDS: BENZTROPINE 1 MG TAB PO SCH ×2 (08:40→22:00)
[2018-12-14] MEDS: VENLAFAXINE 37.5 MG TAB PO SCH (08:40)
[2018-12-14] MEDS: NICOTINE 21MG/24HR 1 EA TRANSDERMAL TD SCH (08:40)
[2018-12-14] MEDS: MULTIVITAMINS/MINERALS THERAP 1 TAB PO SCH (08:41)
[2018-12-14] MEDS: risperiDONE 2 MG TAB PO SCH (08:41)
[2018-12-14] MEDS: FOLIC ACID 1 MG TAB PO SCH (08:41)
[2018-12-14] MEDS ORDERED: PPD DOCUMENTATION ENTRY MISC XX ONE (12:00)
[2018-12-14 18:15] VITALS: BP 129/59
--- NOTE | 2018-12-14 21:04 | MHIPNPDOC ---
[facility] Progress Note Progress Note DATE OF SERVICE: 12/14/18 CHIEF COMPLAINT: Was brought by an ambulance to the ED for taking 1 pint of Listerine and possibly some of his medications HISTORY OF PRESENT ILLNESS: Patient is a 38-year-old male, who according to Ed record: "Reason for Referral Pt was brought to the ED by EMS after taking a possible OD of a pint of Listerine & unknown amounts of Seroquel & Invega. TW does not know who called the ambulance. Pt states he does not remember anything that happened prior to waking up in the ED. Chief Complaint Pt states he does not know why he is here. TW told him that it was reported that he took an OD & he said "I might have." He denies SI or HI. He does report depression, but is guarded about stressors. Pt appears to be acutely psychotic. When TW asked him if he wanted me to call his mother he stated "No. It's ok. She can hear us." He appears to be responding to internal stimuli & is answering questions that TW did not even ask. When asked what his dx is he states "lead pencils." He also c/o something being "red hot" & states it is burning his hands. Pt is not a reliable historian. He states he does not use alcohol but was 0.255 on arrival". Today, 12/04/2018, the patient looks tired, his right lower lid looks a little swollen as if he would be retaining fluids. He is dressed in hospital clothe s and he sais "I don't know, I don't know why I'm here. Everything is so weird, I was home and next thing I know si that I'm at the ED machine" TW asks what ED machine? He responds: "Nothing". He seems very guarded, denies feeling depressed but he looks sad, his speech is slow and although he denies Av hallucinations, h e seems to be responding to internal stimuli VITAL SIGNS: See below. NEW TEST RESULTS: . CURRENT MEDICATIONS: See below. MENTAL STATUS EXAMINATION: General Appearance: appears stated age, hospital scrubs/clothing, swelling on his Right lower lid, probably fluid retention Build: thin Demeanor: calm, guarded Eye Contact: average Activity: anxious Behavior: cooperative Speech: spontaneous, fluent, normal rate, tone and volume Mood: anxious Affect: congruent with mood Thought Process: incoherent, concrete, tangential, loose Thought Content (Delusions): he is paranoid Thought Content (Other): none reported, other Thought Content (Aggressive): none reported Perception (Hallucinations): Responds to internal stimuli Perception (Other): none reported Cognition (Impairment of): none reported Cognition(Intelligence Est.): average Oriented: Awake, Alert. Insight: poor Judgment: Poor Psychosis: Associations, Abstract Thinking, Psychotic Perceptions (The patient denies AV hallucinations but he seems to be internally preoccupied ) Diagnoses 1. Paranoid schizophrenia 2. alcohol use disorder 3. Nicotine use disorder ASSESSMENT: Abdulaziz is more relaxed today, less guarded, has slept well, is eating well, he didn't mention anything about his transfer to [facility] today, he is still psychotic, tangential, delusional. PLAN: Mirtazapine (Remeron) 15 mg QHS PRN PO INSOMNIA Nicotine (Nicoderm Cq 21mg) 1 patch DAILY TD Olanzapine (ZyPREXA ZYDIS) 5 mg Q6HP PRN PO AGITATION; Risperdal 2 mg Po QAM and Risperdal 3 mgs PO QHS Effexor 75 mgs PO QAM Cogentin 1 mg PO BID TIME SPENT: 20 minutes Vital Signs Vital Signs Date Time Temp Pulse Resp B/P (MAP) Pulse Ox O2 Delivery O2 Flow Rate FiO2 12/14/18 18:15 97.9 73 16 129/59 (82) 12/13/18 08:23 Room Air Current Medications Current Medications Acetaminophen (Tylenol Tab) 650 mg Q6HP PRN PO HEADACHE or DISCOMFORT Last administered on 12/05/18at 15:54; Start 12/04/18 at 00:15 Al Hydrox/Mg Hydrox/Simethicone (Mylanta) 30 ml Q4HP PRN PO HEARTBURN/INDIGESTION; Start 12/04/18 at 00:15 Benztropine Mesylate (Cogentin) 1 mg BID PO Last administered on 12/14/18at 08:40; Start 12/07/18 at 21:00 Folic Acid (Folic Acid) 1 mg DAILY PO Last administered on 12/14/18at 08:41; Start 12/04/18 at 09:00 Home Med (Med Rec Complete!) ASDIRECTED XX ; Start 12/04/18 at 09:45; Stop 12/04/18 at 09:45; Status DC Lorazepam (Ativan) 2 mg ASDIRECTED PRN PO SEE PROTOCOL; Start 12/04/18 at 00:15; Status Cancel Magnesium Hydroxide (Milk Of Magnesia) 30 ml DAILYPRN PRN PO CONSTIPATION; Start 12/04/18 at 00:15 Mirtazapine (Remeron) 15 mg QHS PRN PO INSOMNIA Last administered on 12/04/18 21:20; Start 12/04/18 at 01:45 Mirtazapine (Remeron) 15 mg QHSP PO ; Start 12/04/18 at 00:15; Status UNV Multivitamins (Theragram-M) 1 tab DAILY PO Last administered on 12/14/18 08:41; Start 12/04/18 at 09:00 Nicotine (Nicoderm Cq 21mg) 1 patch DAILY TD Last administered on 12/14/18 08:40; Start 12/04/18 at 09:00 Olanzapine (ZyPREXA ZYDIS) 5 mg Q6HP PRN PO AGITATION Last administered on 12/13/18 11:42; Start 12/04/18 at 00:15 Paliperidone (Invega) 3 mg BID PO Last administered on 12/05/18 08:48; Start 12/04/18 at 09:00; Stop 12/05/18 at 15:59; Status DC Risperidone (RisperDAL) 1 mg QAM PO Last administered on 12/07/18 08:48; Start 12/06/18 at 09:00; Stop 12/07/18 at 17:32; Status DC Risperidone (RisperDAL) 2 mg QAM PO Last administered on 12/14/18 08:41; Start 12/08/18 at 09:00 Risperidone (RisperDAL) 2 mg QHS PO Last administered on 12/06/18 21:11; Start 12/05/18 at 21:00; Stop 12/07/18 at 17:33; Status DC Risperidone (RisperDAL) 3 mg QHS PO Last administered on 12/13/18 21:40; Start 12/07/18 at 21:00 Thiamine HCl (Thiamine HCl) 100 mg BID PO Last administered on 3/5/19at 09:19; Start 12/04/18 at 00:57; Stop 12/06/18 at 09:01; Status DC Venlafaxine HCl (Effexor) 37.5 mg DAILY PO Last administered on 12/06/18at 09:19; Start 12/05/18 at 09:00; Stop 12/06/18 at 17:58; Status DC Venlafaxine HCl (Effexor) 75 mg DAILY PO Last administered on 12/14/18at 08:40; Start 12/07/18 at 09:00 Allergies Coded Allergies: Bupropion (Unverified Allergy, Unknown, 04/23/13) Ibuprofen (Verified Allergy, Unknown, 11/07/18) Pseudoephedrine (Verified Allergy, Unknown, 11/07/18) CAMMY GEORGE MD Dec 14, 2018 21:04
[2018-12-14] MEDS: risperiDONE 3 MG TAB PO SCH (22:00)
[2018-12-15 06:31] VITALS: BP 121/58
[2018-12-15] MEDS: FOLIC ACID 1 MG TAB PO SCH (08:10)
[2018-12-15] MEDS: BENZTROPINE 1 MG TAB PO SCH ×2 (08:10→20:22)
[2018-12-15] MEDS: VENLAFAXINE 37.5 MG TAB PO SCH (08:10)
[2018-12-15] MEDS: NICOTINE 21MG/24HR 1 EA TRANSDERMAL TD SCH (08:10)
[2018-12-15] MEDS: MULTIVITAMINS/MINERALS THERAP 1 TAB PO SCH (08:10)
[2018-12-15] MEDS: risperiDONE 2 MG TAB PO SCH (08:10)
[2018-12-15 09:26] VITALS: BP 121/58
[2018-12-15] MEDS: ACETAMINOPHEN TAB 650MG DOSE (2X325MG) PO PRN (17:10)
[2018-12-15 18:00] VITALS: BP 138/78
--- NOTE | 2018-12-15 19:50 | MHIPNPDOC ---
[facility] [place] Progress Note Progress Note DATE OF SERVICE: 12/15/18 CHIEF COMPLAINT: Was brought by an ambulance to the ED for taking 1 pint of Listerine and possibly some of his medications HISTORY OF PRESENT ILLNESS: Patient is a 38-year-old male, who according to Ed record: "Reason for Referral Pt was brought to the ED by EMS after taking a possible OD of a pint of Listerine & unknown amounts of Seroquel & Invega. TW does not know who called the ambulance. Pt states he does not remember anything that happened prior to waking up in the ED. Chief Complaint Pt states he does not know why he is here. TW told him that it was reported that he took an OD & he said "I might have." He denies SI or HI. He does report depression, but is guarded about stressors. Pt appears to be acutely psychotic. When TW asked him if he wanted me to call his mother he stated "No. It's ok. She can hear us." He appears to be responding to internal stimuli & is answering questions that TW did not even ask. When asked what his dx is he states "lead pencils." He also c/o something being "red hot" & states it is burning his hands. Pt is not a reliable historian. He states he does not use alcohol but was 0.255 on arrival". Today, 12/04/2018, the patient looks tired, his right lower lid looks a little swollen as if he would be retaining fluids. He is dressed in hospital clothe s and he sais "I don't know, I don't know why I'm here. Everything is so weird, I was home and next thing I know si that I'm at the ED machine" TW asks what ED machine? He responds: "Nothing". He seems very guarded, denies feeling depressed but he looks sad, his speech is slow and although he denies Av hallucinations, he seems to be responding to internal stimuli VITAL SIGNS: See below. NEW TEST RESULTS: . CURRENT MEDICATIONS: See below. MENTAL STATUS EXAMINATION: General Appearance: appears stated age, hospital scrubs/clothing, swelling on his Right lower lid, probably fluid retention Build: thin Demeanor: calm, guarded Eye Contact: average Activity: anxious Behavior: cooperative Speech: spontaneous, fluent, normal rate, tone and volume Mood: anxious Affect: congruent with mood Thought Process: incoherent, concrete, tangential, loose Thought Content (Delusions): he is paranoid Thought Content (Other): none reported, other Thought Content (Aggressive): none reported Perception (Hallucinations): Responds to internal stimuli Perception (Other): none reported Cognition (Impairment of): none reported Cognition(Intelligence Est.): average Oriented: Awake, Alert. Insight: poor Judgment: Poor Psychosis: Associations, Abstract Thinking, Psychotic Perceptions (The patient denies AV hallucinations but he seems to be internally preoccupied ) Diagnoses 1. Paranoid schizophrenia 2. alcohol use disorder 3. Nicotine use disorder ASSESSMENT: I evaluated Abdulaziz while he was in his room this morning. He asked me if I could wait for a moment because he needed to wash his face. He was very polite, his mood was Ok, he had slept well, ate well. He said he woke up at 4 am but this is not new, he has awakened before at the same time. when he does, he remains in bed, trying to sleep. He said he was not anxious when he woke up. He looks calm to day, he is still disorganized. He has periods when his speech is organized and this alternates with tangential/circumstantial speech. He is not suicidal or homicidal but there's a certain level of paranoia. PLAN: Mirtazapine (Remeron) 15 mg QHS PRN PO INSOMNIA Nicotine (Nicoderm Cq 21mg) 1 patch DAILY TD Olanzapine (ZyPREXA ZYDIS) 5 mg Q6HP PRN PO AGITATION; Risperdal 2 mg Po QAM and Risperdal 3 mgs PO QHS Effexor 75 mgs PO QAM Cogentin 1 mg PO BID TIME SPENT: 20 minutes Vital Signs Vital Signs Date Time Temp Pulse Resp B/P (MAP) Pulse Ox O2 Delivery O2 Flow Rate FiO2 12/15/18 18:00 97.9 80 18 138/78 (98) 12/15/18 09:26 92 12/13/18 08:23 Room Air Current Medications Current Medications Acetaminophen (Tylenol Tab) 650 mg Q6HP PRN PO HEADACHE or DISCOMFORT Last administered on 12/15/18at 17:10; Start 12/04/18 at 00:15 Al Hydrox/Mg Hydrox/Simethicone (Mylanta) 30 ml Q4HP PRN PO HEARTBURN/INDIGESTION; Start 12/04/18 at 00:15 Benztropine Mesylate (Cogentin) 1 mg BID PO Last administered on 12/15/18 08:10; Start 12/07/18 at 21:00 Folic Acid (Folic Acid) 1 mg DAILY PO Last administered on 12/15/18 08:10; Start 12/04/18 at 09:00 Home Med (Med Rec Complete!) ASDIRECTED XX ; Start 12/04/18 at 09:45; Stop 12/04/18 at 09:45; Status DC Lorazepam (Ativan) 2 mg ASDIRECTED PRN PO SEE PROTOCOL; Start 12/04/18 at 00:15; Status Cancel Magnesium Hydroxide (Milk Of Magnesia) 30 ml DAILYPRN PRN PO CONSTIPATION; Start 12/04/18 at 00:15 Mirtazapine (Remeron) 15 mg QHS PRN PO INSOMNIA Last administered on 12/04/18 21:20; Start 12/04/18 at 01:45 Mirtazapine (Remeron) 15 mg QHSP PO ; Start 12/04/18 at 00:15; Status UNV Multivitamins (Theragram-M) 1 tab DAILY PO Last administered on 12/15/18 08:10; Start 12/04/18 at 09:00 Nicotine (Nicoderm Cq 21mg) 1 patch DAILY TD Last administered on 12/15/18 08:10; Start 12/04/18 at 09:00 Olanzapine (ZyPREXA ZYDIS) 5 mg Q6HP PRN PO AGITATION Last administered on 12/13/18 11:42; Start 12/04/18 at 00:15 Paliperidone (Invega) 3 mg BID PO Last administered on 12/05/18 08:48; Start 12/04/18 at 09:00; Stop 12/05/18 at 15:59; Status DC Risperidone (RisperDAL) 1 mg QAM PO Last administered on 12/07/18 08:48; Start 12/06/18 at 09:00; Stop 12/07/18 at 17:32; Status DC Risperidone (RisperDAL) 2 mg QAM PO Last administered on 3/14/19at 08:10; Start 12/08/18 at 09:00 Risperidone (RisperDAL) 2 mg QHS PO Last administered on 12/06/18 21:11; Start 12/05/18 at 21:00; Stop 12/07/18 at 17:33; Status DC Risperidone (RisperDAL) 3 mg QHS PO Last administered on 12/14/18at 22:00; Start 12/07/18 at 21:00 Thiamine HCl (Thiamine HCl) 100 mg BID PO Last administered on 12/06/18 09:19; Start 12/04/18 at 00:57; Stop 12/06/18 at 09:01; Status DC Venlafaxine HCl (Effexor) 37.5 mg DAILY PO Last administered on 12/06/18 09:19; Start 12/05/18 at 09:00; Stop 12/06/18 at 17:58; Status DC Venlafaxine HCl (Effexor) 75 mg DAILY PO Last administered on 12/15/18 08:10; Start 12/07/18 at 09:00 Allergies Coded Allergies: Bupropion (Unverified Allergy, Unknown, 04/23/13) Ibuprofen (Verified Allergy, Unknown, 11/07/18) Pseudoephedrine (Verified Allergy, Unknown, 11/07/18) CAMMY GEORGE MD Dec 15, 2018 19:50
[2018-12-15] MEDS: risperiDONE 3 MG TAB PO SCH (20:22)
[2018-12-16 06:18] VITALS: BP 121/65
[2018-12-16] MEDS: VENLAFAXINE 37.5 MG TAB PO SCH (08:18)
[2018-12-16] MEDS: FOLIC ACID 1 MG TAB PO SCH (08:18)
[2018-12-16] MEDS: risperiDONE 2 MG TAB PO SCH (08:18)
[2018-12-16] MEDS: BENZTROPINE 1 MG TAB PO SCH ×2 (08:18→20:05)
[2018-12-16] MEDS: MULTIVITAMINS/MINERALS THERAP 1 TAB PO SCH (08:18)
[2018-12-16] MEDS: NICOTINE 21MG/24HR 1 EA TRANSDERMAL TD SCH (08:19)
[2018-12-16] MEDS: ACETAMINOPHEN TAB 650MG DOSE (2X325MG) PO PRN (17:22)
[2018-12-16 18:00] VITALS: BP 132/70
[2018-12-16] MEDS: MIRTAZAPINE 15 MG TAB PO PRN (20:05)
[2018-12-16] MEDS: risperiDONE 3 MG TAB PO SCH (20:05)
--- NOTE | 2018-12-16 21:05 | MHIPNPDOC ---
[facility] Progress Note Progress Note DATE OF SERVICE: 12/16/18 CHIEF COMPLAINT: Was brought by an ambulance to the ED for taking 1 pint of Listerine and possibly some of his medications HISTORY OF PRESENT ILLNESS: Patient is a 38-year-old male, who according to Ed record: "Reason for Referral Pt was brought to the ED by EMS after taking a possible OD of a pint of Listerine & unknown amounts of Seroquel & Invega. TW does not know who called the ambulance. Pt states he does not remember anything that happened prior to waking up in the ED. Chief Complaint Pt states he does not know why he is here. TW told him that it was reported that he took an OD & he said "I might have." He denies SI or HI. He does report depression, but is guarded about stressors. Pt appears to be acutely psychotic. When TW asked him if he wanted me to call his mother he stated "No. It's ok. She can hear us." He appears to be responding to internal stimuli & is answering questions that TW did not even ask. When asked what his dx is he states "lead pencils." He also c/o something being "red hot" & states it is burning his hands. Pt is not a reliable historian. He states he does not use alcohol but was 0.255 on arrival". Today, 12/04/2018, the patient looks tired, his right lower lid looks a little swollen as if he would be retaining fluids. He is dressed in hospital clothe s and he sais "I don't know, I don't know why I'm here. Everything is so weird, I was home and next thing I know si that I'm at the ED machine" TW asks what ED machine? He responds: "Nothing". He seems very guarded, denies feeling depressed but he looks sad, his speech is slow and although he denies Av hallucinations, he seems to be responding to internal stimuli VITAL SIGNS: See below. NEW TEST RESULTS: . CURRENT MEDICATIONS: See below. MENTAL STATUS EXAMINATION: General Appearance: appears stated age, hospital scrubs/clothing, swelling on his Right lower lid, probably fluid retention Build: thin Demeanor: calm, guarded Eye Contact: average Activity: anxious but cooperative Behavior: cooperative, pleasant Speech: spontaneous, fluent, normal rate, tone and volume Mood: anxious Affect: congruent with mood Thought Process: incoherent, concrete, tangential, loose Thought Content (Delusions): he is paranoid Thought Content (Other): none reported, other Thought Content (Aggressive): none reported Perception (Hallucinations): Responds to internal stimuli Perception (Other): none reported Cognition (Impairment of): none reported Cognition(Intelligence Est.): average Oriented: Awake, Alert. Insight: poor Judgment: Poor Psychosis: Associations, Abstract Thinking, Psychotic Perceptions (The patient denies AV hallucinations but he seems to be internally preoccupied ) Diagnoses 1. Paranoid schizophrenia 2. alcohol use disorder 3. Nicotine use disorder ASSESSMENT: Patient has improved, he is calm, cooperative, pleasant. He told me today he couldn't comply with his medications as he wanted because his insurance didn't approve all of his medications and between his hospitalizations, he lost track of everything. He promises he will comply with his medications if he goes home, TW told him that if he doesn't comply again, and if he comes back to the hospital, [facility] PLAN: Mirtazapine (Remeron) 15 mg QHS PRN PO INSOMNIA Nicotine (Nicoderm Cq 21mg) 1 patch DAILY TD Olanzapine (ZyPREXA ZYDIS) 5 mg Q6HP PRN PO AGITATION; Risperdal 2 mg Po QAM and Risperdal 3 mgs PO QHS Effexor 75 mgs PO QAM Cogentin 1 mg PO BID TIME SPENT: 20 minutes Vital Signs Vital Signs Date Time Temp Pulse Resp B/P (MAP) Pulse Ox O2 Delivery O2 Flow Rate FiO2 12/16/18 18:00 97.7 82 18 132/70 (90) 12/15/18 09:26 92 12/13/18 08:23 Room Air Current Medications Current Medications Acetaminophen (Tylenol Tab) 650 mg Q6HP PRN PO HEADACHE or DISCOMFORT Last administered on 12/16/18at 17:22; Start 12/04/18 at 00:15 Al Hydrox/Mg Hydrox/Simethicone (Mylanta) 30 ml Q4HP PRN PO HEARTBURN/INDIGESTION; Start 12/04/18 at 00:15 Benztropine Mesylate (Cogentin) 1 mg BID PO Last administered on 12/16/18at 20:05; Start 12/07/18 at 21:00 Folic Acid (Folic Acid) 1 mg DAILY PO Last administered on 12/16/18 08:18; Start 12/04/18 at 09:00 Home Med (Med Rec Complete!) ASDIRECTED XX ; Start 12/04/18 at 09:45; Stop 12/04/18 at 09:45; Status DC Lorazepam (Ativan) 2 mg ASDIRECTED PRN PO SEE PROTOCOL; Start 12/04/18 at 00:15; Status Cancel Magnesium Hydroxide (Milk Of Magnesia) 30 ml DAILYPRN PRN PO CONSTIPATION; Start 12/04/18 at 00:15 Mirtazapine (Remeron) 15 mg QHS PRN PO INSOMNIA Last administered on 12/16/18 20:05; Start 12/04/18 at 01:45 Mirtazapine (Remeron) 15 mg QHSP PO ; Start 12/04/18 at 00:15; Status UNV Multivitamins (Theragram-M) 1 tab DAILY PO Last administered on 12/16/18 08:18; Start 12/04/18 at 09:00 Nicotine (Nicoderm Cq 21mg) 1 patch DAILY TD Last administered on 12/16/18 08:19; Start 12/04/18 at 09:00 Olanzapine (ZyPREXA ZYDIS) 5 mg Q6HP PRN PO AGITATION Last administered on 12/13/18 11:42; Start 12/04/18 at 00:15 Paliperidone (Invega) 3 mg BID PO Last administered on 12/05/18 08:48; Start 12/04/18 at 09:00; Stop 12/05/18 at 15:59; Status DC Risperidone (RisperDAL) 1 mg QAM PO Last administered on 12/07/18 08:48; Start 12/06/18 at 09:00; Stop 12/07/18 at 17:32; Status DC Risperidone (RisperDAL) 2 mg QAM PO Last administered on 12/16/18 08:18; Start 12/08/18 at 09:00 Risperidone (RisperDAL) 2 mg QHS PO Last administered on 12/06/18at 21:11; Start 12/05/18 at 21:00; Stop 12/07/18 at 17:33; Status DC Risperidone (RisperDAL) 3 mg QHS PO Last administered on 12/16/18at 20:05; Start 12/07/18 at 21:00 Thiamine HCl (Thiamine HCl) 100 mg BID PO Last administered on 12/06/18at 09:19; Start 12/04/18 at 00:57; Stop 12/06/18 at 09:01; Status DC Venlafaxine HCl (Effexor) 37.5 mg DAILY PO Last administered on 12/06/18at 09:19; Start 12/05/18 at 09:00; Stop 12/06/18 at 17:58; Status DC Venlafaxine HCl (Effexor) 75 mg DAILY PO Last administered on 12/16/18at 08:18; Start 12/07/18 at 09:00 Allergies Coded Allergies: Bupropion (Unverified Allergy, Unknown, 04/23/13) Ibuprofen (Verified Allergy, Unknown, 11/07/18) Pseudoephedrine (Verified Allergy, Unknown, 11/07/18) CAMMY GEORGE MD Dec 16, 2018 21:05
[2018-12-17 06:00] VITALS: BP 121/72
[2018-12-17] MEDS: ACETAMINOPHEN TAB 650MG DOSE (2X325MG) PO PRN (06:46)
[2018-12-17] MEDS: FOLIC ACID 1 MG TAB PO SCH (08:24)
[2018-12-17] MEDS: BENZTROPINE 1 MG TAB PO SCH ×2 (08:24→20:18)
[2018-12-17] MEDS: risperiDONE 2 MG TAB PO SCH (08:25)
[2018-12-17] MEDS: VENLAFAXINE 37.5 MG TAB PO SCH (08:25)
[2018-12-17] MEDS: MULTIVITAMINS/MINERALS THERAP 1 TAB PO SCH (08:25)
[2018-12-17] MEDS: NICOTINE 21MG/24HR 1 EA TRANSDERMAL TD SCH (08:25)
[2018-12-17] MEDS: CHLORHEXIDINE GLUCONATE 0.12 % 15ML UDC (PERIDEX ORAL RINSE) SSP SCH ×2 (09:00→20:18)
[2018-12-17 18:10] VITALS: BP 132/69
[2018-12-17] MEDS: risperiDONE 3 MG TAB PO SCH (20:18)
[2018-12-18] MEDS: ACETAMINOPHEN TAB 650MG DOSE (2X325MG) PO PRN ×2 (04:50→17:11)
[2018-12-18 06:48] VITALS: BP 109/56
[2018-12-18] MEDS: risperiDONE 2 MG TAB PO SCH (08:10)
[2018-12-18] MEDS: FOLIC ACID 1 MG TAB PO SCH (08:10)
[2018-12-18] MEDS: VENLAFAXINE 37.5 MG TAB PO SCH (08:10)
[2018-12-18] MEDS: BENZTROPINE 1 MG TAB PO SCH ×2 (08:10→21:25)
[2018-12-18] MEDS: MULTIVITAMINS/MINERALS THERAP 1 TAB PO SCH (08:10)
[2018-12-18] MEDS: NICOTINE 21MG/24HR 1 EA TRANSDERMAL TD SCH (08:10)
[2018-12-18] MEDS: CHLORHEXIDINE GLUCONATE 0.12 % 15ML UDC (PERIDEX ORAL RINSE) SSP SCH ×2 (08:10→21:25)
[2018-12-18 18:00] VITALS: BP 125/70
[2018-12-18] MEDS: MIRTAZAPINE 15 MG TAB PO PRN (21:24)
[2018-12-18] MEDS: risperiDONE 3 MG TAB PO SCH (21:25)
[2018-12-19] MEDS: ACETAMINOPHEN TAB 650MG DOSE (2X325MG) PO PRN (04:01)
[2018-12-19 06:32] VITALS: BP 131/75
[2018-12-19] MEDS: NICOTINE 21MG/24HR 1 EA TRANSDERMAL TD SCH (09:00)
[2018-12-19] MEDS: risperiDONE 2 MG TAB PO SCH (09:02)
[2018-12-19] MEDS: VENLAFAXINE 37.5 MG TAB PO SCH (09:02)
[2018-12-19] MEDS: FOLIC ACID 1 MG TAB PO SCH (09:02)
[2018-12-19] MEDS: MULTIVITAMINS/MINERALS THERAP 1 TAB PO SCH (09:02)
[2018-12-19] MEDS: BENZTROPINE 1 MG TAB PO SCH (09:03)
[2018-12-19] MEDS: CHLORHEXIDINE GLUCONATE 0.12 % 15ML UDC (PERIDEX ORAL RINSE) SSP SCH (09:03)
[2018-12-19] MEDS ORDERED: RISP3TAB20 PO (10:47)
[2018-12-19] MEDS ORDERED: RISP2TAB32 PO (10:47)
[2018-12-19] MEDS ORDERED: FOLI1TAB11 PO (10:47)
[2018-12-19] MEDS ORDERED: VENL37TA PO (10:47)
[2018-12-19] MEDS ORDERED: MIRT15TA3 PO (10:47)
[2018-12-19] MEDS ORDERED: BENZ-52 PO (10:47)
[2018-12-19] MEDS ORDERED: VITMTA PO (10:47)
[2018-12-19] MEDS ORDERED: PERI12LIQ SSP (10:47)
[2018-12-19] MEDS ORDERED: NICO21PAT TD (10:47)
--- NOTE | 2018-12-19 10:57 | MHDSPDOC ---
[facility] Discharge Summary Discharge Summary DATE OF ADMISSION: Dec 04, 2018 at 00:07 DATE OF DISCHARGE: DISCHARGE DIAGNOSES: 1. Paranoid schizophrenia 2. alcohol use disorder 3. Nicotine use disorder REASON FOR ADMISSION: CHIEF COMPLAINT: Was brought by an ambulance to the ED for taking 1 pint of Listerine and possibly some of his medications HISTORY OF PRESENT ILLNESS: Patient is a 38-year-old male, who according to Ed record: "Reason for Referral Pt was brought to the ED by EMS after taking a possible OD of a pint of Listerine & unknown amounts of Seroquel & Invega. TW does not know who called the ambulance. Pt states he does not remember anything that happened prior to waking up in the ED. Chief Complaint Pt states he does not know why he is here. TW told him that it was reported that he took an OD & he said "I might have." He denies SI or HI. He does report depression, but is guarded about stressors. Pt appears to be acutely psychotic. When TW asked him if he wanted me to call his mother he stated "No. It's ok. She can hear us." He appears to be responding to internal stimuli & is answering questions that TW did not even ask. When asked what his dx is he states "lead pencils." He also c/o something being "red hot" & states it is burning his hands. Pt is not a reliable historian. He states he does not use alcohol but was 0.255 on arrival". CONSULTANTS INVOLVED: None TREATMENT AND PROGRESS ON THE UNIT : The patient's presentation was very similar to previous admissions, he was delusional, tangential, circumstantial, talking to himself, but he was pleasant and cooperative. He believes that electronics have special chips that can control human beings and he is afraid of the lights that come out of them. He constantly talked about how dangerous computers, TV's, tablets, radios, cell phones are. However he had a good response to medications, this time he took Risperdal 3 mgs PO QHS and 2 mgs PO QAM. Last time he was here, he had problems acquiring his medications and they didn't approve of his PERLA, therefore tw preferred to scribe for Risperdal this time. He was never aggressive or threatening, he was not violent. He has been warned that if he is not compliant this time, he will have to go to [facility] and he said he understood and compromised to take his meds and go to his appointments. HOSPITAL COURSE: As above DISCHARGE ASSESSMENT: Patient was not in danger to self or others, he was calm and cooperative. He still had some bizarre delusions but he was not paranoid, he was not responding to internal stimuli, not talking to himself. MENTAL STATUS EXAMINATION ON DISCHARGE: General Appearance: appears stated age, hospital scrubs/clothing, laying in bed, sleepy Build: thin Demeanor: calm, guarded Eye Contact: average Activity: calm and cooperative Behavior: cooperative, pleasant Speech: spontaneous, fluent, normal rate, tone and volume Mood: euthymic Affect: congruent with mood Thought Process: more coherent, less tangential Thought Content (Delusions): he is not paranoid at this time, however he still has some bizarre ideas about electronics but they are less frequent, less intense and his thoughts can be re directed Thought Content (Other): none reported, other Thought Content (Aggressive): none reported Perception (Hallucinations): none reported Perception (Other): none reported Cognition (Impairment of): none reported Cognition(Intelligence Est.): average Oriented: Awake, Alert. Insight: improving Judgment: improving Psychosis: Denies Diagnoses 1. Paranoid schizophrenia 2. alcohol use disorder 3. Nicotine use disorder MEDICATIONS ON DISCHARGE: Scheduled Benztropine Mesylate (Benztropine Mesylate) 1 Mg Tab, 1 MG PO BID for Extrapyramidal side effects, #14 Chlorhexidine Gluconate (Chlorhexidine Gluconate) 0.12 % Bridgett, 15 ML SSP BID for mouth wash, #1 Folic Acid (Folic Acid) 1 Mg Tab, 1 MG PO DAILY for alcohol withdrawals, #7 Multivitamins *[facility] STOCKED* (Thera M Plus *[facility] STOCKED*) 1 Tab Tab, 1 TAB PO DAILY for alcohol withdrawals, #7 Nicotine (Nicotine Transdermal Syst) 21 Mg/24 Hr Dis, 1 PATCH TD DAILY for nicot ine withdrawal, #7 Risperidone (Risperdal) 3 Mg Tab, 3 MG PO QHS for psychosis, #7 Risperidone (Risperdal) 2 Mg Tab, 2 MG PO QAM for psychosis, #7 Venlafaxine HCl (Venlafaxine HCl) 37.5 Mg Tab, 75 MG PO DAILY for depression/anxiety, #14 Scheduled PRN Hydroxyzine HCl (Hydroxyzine HCl) 50 Mg Tab, 50 MG PO Q6H PRN for ANXIETY, (Reported) Mirtazapine (Mirtazapine) 15 Mg Tab, 15 MG PO QHS PRN for INSOMNIA, #7 PLAN/FOLLOWUP ARRANGEMENTS: Follow Up Care Education Label * Mental Health Appt 1 * Mental Health [facility] * Established With This Provider No * Therapist CLIFTON IVERSON * Date Dec 21, 2018 * Time 09:00 * Address of Clinic or Practice [address] [place] [address] * * Additional information Please arrive 15 minutes early to fill out new patient paperwork. Remember to bring your photo ID and insurance card. Follow Up Care Education Label * Chemical Dependency Appt1 * Chemical Dependency [facility] * Established With This Provider No Follow Up Care Education Label * Care Coordination * Care Coordination/Case Management/Supervision [facility] * Established With This Provider Yes * Microbiological Analyst Angie/Laxmi * Date Dec 27, 2018 * Time 10:00 * Follow Up Care Education Label * Medical * Medical Follow Up [facility]: DR. COOPER * Established With This Provider No NEW PATIENT APPOINTMENT * Date Dec 30, 2018 * Time 15:00 * Address of Clinic or Practice [address] [place] [address] * . The amount of time spent in the coordination of care for this patient was approximately 30 minutes. Vital Signs/I&Os Vital Signs Date Time Temp Pulse Resp B/P (MAP) Pulse Ox O2 Delivery O2 Flow Rate FiO2 12/19/18 06:32 97.5 84 18 131/75 (93) 12/18/18 07:55 Room Air 12/15/18 09:26 92 Medications Scheduled Benztropine Mesylate (Benztropine Mesylate) 1 Mg Tab, 1 MG PO BID for Extrapyramidal side effects, #14 Chlorhexidine Gluconate (Chlorhexidine Gluconate) 0.12 % Bridgett, 15 ML SSP BID for mouth wash, #1 Folic Acid (Folic Acid) 1 Mg Tab, 1 MG PO DAILY for alcohol withdrawals, #7 Multivitamins *[facility] STOCKED* (Thera M Plus *[facility] STOCKED*) 1 Tab Tab, 1 TAB PO DAILY for alcohol withdrawals, #7 Nicotine (Nicotine Transdermal Syst) 21 Mg/24 Hr Dis, 1 PATCH TD DAILY for nicotine withdrawal, #7 Risperidone (Risperdal) 3 Mg Tab, 3 MG PO QHS for psychosis, #7 Risperidone (Risperdal) 2 Mg Tab, 2 MG PO QAM for psychosis, #7 Venlafaxine HCl (Venlafaxine HCl) 37.5 Mg Tab, 75 MG PO DAILY for depression/anxiety, #14 Scheduled PRN Hydroxyzine HCl (Hydroxyzine HCl) 50 Mg Tab, 50 MG PO Q6H PRN for ANXIETY, (Reported) Mirtazapine (Mirtazapine) 15 Mg Tab, 15 MG PO QHS PRN for INSOMNIA, #7 Allergies Coded Allergies: Bupropion (Unverified Allergy, Unknown, 04/23/13) Ibuprofen (Verified Allergy, Unknown, 11/07/18) Pseudoephedrine (Verified Allergy, Unknown, 11/07/18) CAMMY GEORGE MD Dec 19, 2018 10:57
== END 2018-12-19 11:50 | disposition home or self-care (01) | DRG 885 ==
LOC: EDBD 12:42 → M ED 12:42 → M ED INP 12-04 00:07 → M PSY 12-04 02:50
PROVIDERS: ADMIT Psychiatry & Neurology Psychiatry; ATTEND Psychiatry & Neurology Psychiatry
DX: F20.0 Paranoid schizophrenia (principal); F10.10 Alcohol abuse, uncomplicated; F17.200 Nicotine dependence, unspecified, uncomplicated; Z79.899 Other long term (current) drug therapy; G47.00 Insomnia, unspecified; D72.829 Elevated white blood cell count, unspecified

== ENCOUNTER 2020-01-26 12:19 | Inpatient (IN) | payer MEDICARE ==
[~2020-01-26] VITALS: Ht 157.5 cm; Wt 58.3 kg
[~2020-01-26 12:19] MED LIST changes: -/HALO5TAB PO; +BENZ-52 PO; -BENZ1TA PO; +BENZ1TAB42 PO; +FOLI1TAB11 PO; -HALO10TA PO; +HALO1TAB21 PO; +HALO1TAB29 PO; -HALO2TA PO; +HALO2TAB26 PO; +HYDR1TAB33 PO; +HYDR50TA70 PO; -HYDRO50TAB PO; +INVEGA PO; +MIRT15TA3 PO; +NICO21PAT TD; +PALI1TAB4 PO; +PERI12LIQ SSP; +PHARMACY COMMENT; +QUET100T2 PO; -QUET1TAB8 PO; -QUET1TAB9 PO; +QUET200T2 PO; +RISP3TAB20 PO; +SERO1TAB PO; +TRAZ-252 PO; +TRAZ1TAB10 PO; +TRAZ1TAB6 PO; -TRAZO50TA PO; +VENL37TA PO; +VITMTA PO
[2020-01-26] MEDS ORDERED: INVE234I SC (12:39)
[2020-01-26 13:39] LABS: HEMATOCRIT 50.1 % (42.0-52.0); HEMOGLOBIN 17.3 g/dl (13.5-17.5); MEAN CORPUSCULAR HEMOGLOBIN 30.7 pg (27.0-33.0); MEAN CORPUSCULAR HGB CONC 34.5 g/dl (32.0-36.5); MEAN CORPUSCULAR VOLUME 88.8 fl (80.0-96.0); PLATELET COUNT, AUTOMATED 328 10^3/uL (150-450); RED BLOOD COUNT 5.64 10^6/uL (4.30-6.10); WHITE BLOOD COUNT 12.8 10^3/uL (4.0-10.0)
[2020-01-26 13:56] LABS: AMPHETAMINES LEVEL URINE NEGATIVE (NEGATIVE); BARBITURATES URINE NEGATIVE (NEGATIVE); BENZODIAZEPINES URINE NEGATIVE (NEGATIVE); CANNABINOIDS URINE POSITIVE (NEGATIVE); COCAINE METABOLITE URINE NEGATIVE (NEGATIVE); METHADONE URINE NEGATIVE (NEGATIVE); OPIATES URINE NEGATIVE (NEGATIVE); PHENCYCLIDINE URINE NEGATIVE (NEGATIVE)
[2020-01-26 13:58] LABS: ACETAMINOPHEN LEVEL < 2.0 UG/ML (10.0-30.0); ALBUMIN 4.4 GM/DL (3.2-5.2); ALT/SGPT 25 U/L (12-78); BILIRUBIN,DIRECT 0.2 MG/DL (0.0-0.2); BILIRUBIN,TOTAL 0.5 MG/DL (0.2-1.0); BLOOD UREA NITROGEN 5 MG/DL (7-18); CALCIUM LEVEL 9.1 MG/DL (8.5-10.1); CARBON DIOXIDE LEVEL 21 MEQ/L (21-32); CHLORIDE LEVEL 107 MEQ/L (98-107); CREATININE FOR GFR 0.91 MG/DL (0.70-1.30); ETHYL ALCOHOL (ETHANOL) < 0.003 % (0.000-0.010); GLOMERULAR FILTRATION RATE > 60.0 (>60); GLUCOSE, FASTING 102 MG/DL (70-100); SALICYLATE LEVEL 6.8 MG/DL (5.0-30.0); SODIUM LEVEL 139 MEQ/L (136-145); TOTAL PROTEIN 8.9 GM/DL (6.4-8.2)
[2020-01-26] MEDS ORDERED: MOM 30ML SUSPENSION UDC PO PRN (16:00)
[2020-01-26] MEDS ORDERED: MAALOX 30 ML SUSP *UDC PO PRN (16:00)
--- NOTE | 2020-01-26 17:23 | REP ---
CHEST: Two views. There is no evidence of acute infiltrate. No pleural effusion is seen. The heart is normal in size. The mediastinal silhouette is unremarkable. The visualized osseous structures are intact. IMPRESSION: No acute pulmonary disease. Electronically Signed by Ham Wright MD 01/26/2020 07:26 P
[2020-01-26 20:43] VITALS: BP 113/74
[2020-01-26] MEDS: haloperidoL 5 MG TAB PO SCH (21:28)
[2020-01-26] MEDS: traZODone 50 MG TAB PO PRN (21:28)
[2020-01-27 06:45] VITALS: BP 132/75
[2020-01-27] MEDS: haloperidoL 5 MG TAB PO SCH (08:27)
--- NOTE | 2020-01-27 13:21 | MHHPEPDOC ---
[facility] History & Physical History and Physical DATE OF ADMISSION: Jan 26, 2020 at 15:47 LEGAL STATUS AT ADMISSION: 9.39 CHIEF COMPLAINT: Psychosis HISTORY OF PRESENT ILLNESS: Patient is a 39-year-old male, who as per ED report ( PSA report): "Reason for Referral Pt with a history of schizophrenia self presents to [facility] after stating "I'm sick". Chief Complaint Pt is very tearful and guarded during entire interview. Pt appears to be paranoid, pt is sitting on bed with his hands interlocked rocking back and forth. Tw reassured pt that he is safe several times during the interview. Pt minimally began to talk. Pt reports that he feels as though something is chasing him. Pt states he does not know what is chasing him just that he is scared daily and "that the thing chasing me will hurt me". Tw tried to redirect pt several times with no success. Pt is alert and oriented times 4. Pt reports poor sleep and states "I stay awake because the thing chasing me is going to get me in my bed". Pt denies SI/HI/self inj. Pt reports living with his mother, pt begins to cry when talking about his mom. Pt interacts very minimally and is difficult to engage. Interview was aborted prematurely due to pts minimal and guarded responses." Psychiatric Review of Systems- Depression (2 or more weeks): Denies ( patient is clearly minimizing his symptoms) Psychosis: He denies TAV hallucinations and he denies paranoia but he seems paranoid, he is very guarded Anxiety: He denies anxiety, but he clearly is anxious during the interview Anxiety/ 6 months or more of: He reports difficulty concentrating and he seems very anxious Past Psychiatric History Prior Psychiatric Diagnosis: Paranoid schizophrenia Previous admissions: Multiple admissions to [facility], he has a h/o medication non compliance, he has received Invega Sustenna in the past. Apparently the last time he received it was on 12/2019 Current Medications: None, aparently the last time he received his Invega Sustena injection was in 12/2019 Suicide attempts: Patient denies Psychotropic Medication History: Per chart has been tried on, ziprasidone, Paxil, Abilify, Zyprexa, Depakote, Invega and Invega Sustenna. He has taken many other medications but he fails to contribute with information at this time Past Medical History Medical Problems PMHx: He i uncooperative and says "I don't know" .He says he doesn't know if he had a head injury, seizures of he has been hospitalized for ay other medical/surgical problems in the recent past. Family Medical/Psychiatric HX Medical Problems Uncle has paranoid schizophrenia, per chart. Patient reports he "doesn't know." Addiction History nicotine, alcohol Social History---------Some of this information was obtained from previous records because patient was very guarded and uncooperative at the time of this interview. New answers from this interview are written in red. Childhood: Patient reports he had a happy childhood; he denies having any sexual abuse, physical abuse, or emotional abuse. He states he had a good relationship with his parents. Patient has a sister; unsure of sibling order. Abuse/Trauma: Denies Current Living Situation: At this time, the patient denied livin with his mother, with whom he has lived. This information needs to be verified if he sighs an SOL Education: Patient dropped out of high school in the 11th grade. Employment: On disability; unaware of how much he makes a month. Social Support: His mom. Legal: Has been in custodial/alf for 4 months in the past. Substance abuse: The patient reports he drinks ETOH daily "at least a few beers, sometimes liquor." He denies current illicit drug use, but according to previous notes the patient carries both cannabis, nicotine, and alcohol use disorders per previous diagnoses. Mental Status Examination General Appearance: He was dressed in hospital clothes, hygiene and grooming were good. Eye contact was avoidant Build: thin Demeanor: guarded Eye Contact: poor Activity: anxious Behavior: withdrawn, guarded Speech: Not spontaneous, not fluent, needs prompting, delayed responses. Normal tone and volume Mood: anxious and easily irritated Affect: anxious/irritable Thought Process: blocked, concrete Thought Content (Delusions): paranoia Thought Content (Other): appears paranoid Thought Content (Aggressive): none reported Perception (Hallucinations): none reported (However, appears internally preoccupied ) Perception (Other): none reported Cognition (Impairment of): unable to assess Oriented: Awake Insight: poor Judgment: Poor Diagnoses 1. Paranoid schizophrenia, acute decompensation 2. Alcohol use disorder, severe 3. Cannabis use disorder, unknown if in remission - pt poor historian 4. Nicotine use disorder Assessment Abdulaziz has a h/o paranoid schizophrenia. On his previous admissions he has always been guarded and he starts opening up a few days after his admission, once he starts responding to medication. He had a good response in the past to Invega and Risperdal. There are some questions as when was the last time he received his invega Sustenna ijection and it seems it was on 12/05/[address] Miranda and later on it seems he was on oral Invega,ordered by Dr. Miranda too. I will restart him on his oral invega and then, he will be able to receive his injection. Initial Treatment Plan 1. Patient was admitted on a 9.39 status. 2. Complete history was obtained. 3. With patients permission, family will be contacted and database will be expanded. 4. Patients medication regimen will be reviewed and changed accordingly. 5. Patient will be provided with protected environment. 6. Patient will be treated with individual, group, and milieu therapies. 7. Patient will receive supportive psych-education. 8. Discharge planning will commence immediately. 9. Outpatient follow-up treatment will be strongly recommended. 10. The initial treatment plan will focus initially on: * Psychosis. * Alcohol abuse. * Nicotine abuse * Medication non compliance * Ineffective coping * Risk of harming other people * 12. Start Invega for psychosis 13. Continue PRNS for anxiety and insomnia 14. Start CIWA protocol for potential alcohol withdrawal ESTIMATED LENGTH OF STAY: 5-7 DAYS. TIME SPENT COUNSELING AND COORDINATING INITIAL CARE: 45 minutes. Vital Signs Vital Signs Date Time Temp Pulse Resp B/P (MAP) Pulse Ox O2 Delivery O2 Flow Rate FiO2 01/27/20 06:45 97.3 100 16 132/75 (94) 97 Room Air Laboratory Data 24H Labs Laboratory Tests 2 01/26/20 12:48: Urine Opiates Screen NEGATIVE, Urine Methadone Screen NEGATIVE, Urine Barbiturates Screen NEGATIVE, Urine Phencyclidine Screen NEGATIVE, Urine Amphetamines Screen NEGATIVE, Urine Benzodiazepines Screen NEGATIVE, Urine Cocaine Metabolite Screen NEGATIVE, Urine Cannabinoids Screen POSITIVEH 01/26/20 13:17: Nucleated Red Blood Cells % (auto) 0.0, Anion Gap 11, Glomerular Filtration Rate > 60.0, Calcium Level 9.1, Total Bilirubin 0.5, Direct Bilirubin 0.2, Aspartate Amino Transf (AST/SGOT) 33, Alanine Aminotransferase (ALT/SGPT) 25, Alkaline Phosphatase 71, Total Protein 8.9H, Albumin 4.4, Albumin/Globulin Ratio 0.98L, Thyroid Stimulating Hormone (TSH) 1.070, Salicylates Level 6.8, Acetaminophen Level < 2.0L, Ethyl Alcohol Level < 0.003 CBC/BMP Laboratory Tests 01/26/20 13:17 Medications Scheduled Paliperidone Palmitate (Invega Sustenna) 234 Mg/1.5 Ml Syringe, 234 MG SC QMONTH, (Reported) Allergies Coded Allergies: No Known Allergies (Unverified , 01/26/20) A-FIB/CHADSVASC A-FIB History Current/History of A-Fib/PAF?: No Current PO Anticoag Therapy: No Age/Risk Factor Scoring CHADSVASC: CHADSVASC Response (Comments) Value Age Risk Factor Age < 65 years old 0 Gender Risk Factor Male 0 Hx of CHF No 0 Hx of HTN No 0 Hx of Stroke/TIA/or VTE No 0 Hx of Diabetes No 0 Hx of Vascular Disease No 0 Total 0 Treatment Treatment ordered: NONE Reason Anticoagulant not given: Not indicated/[id number] CAMMY GEORGE MD Jan 27, 2020 10:44
--- NOTE | 2020-01-27 13:39 | HPEPDOC ---
General Date of Admission Jan 26, 2020 at 15:47 Date of Service: Jan 27, 2020 Attending Physician: ROSE DAMICO MD Chief Complaint The patient is a 39-year-old male admitted with a reason for visit of Unspecified Psychosis. Source: Patient, RN notes reviewed Exam Limitations: Clinical conditions Associated Symptoms: Other (anxiety and debilitating fearfulness) History of Present Illness 39 yo M with a history of schizophrenia who presented reporting that he is "sick" while endorsing profound debilitating fear that something is chasing him to cause him harm. His initial ED work up was notable for tox screen positive for marijuana with an otherwise normal CBC and BMP. He was admitted to the [facility] for psychiatric evaluation and treatment. Home Medications Scheduled Paliperidone Palmitate (Invega Sustenna) 234 Mg/1.5 Ml Syringe, 234 MG SC QMONTH , (Reported) Allergies Coded Allergies: No Known Allergies (Unverified , 01/26/20) Past Medical History Medical History Schizophrenia Surgical History EMR noted a history of abdominal surgery? Family History Significant Family History: Unable to assess Social History * Smoker: current smoker Drugs: marijuana Recent Travel/Sick Contacts: Denies: Recent travel, Recent sick contacts Psychosocial History: Anxiety, Schizophrenia Reports that he lives with his mother A-FIB/CHADSVASC A-FIB History Current/History of A-Fib/PAF?: No Current PO Anticoag Therapy: No Age/Risk Factor Scoring CHADSVASC: CHADSVASC Response (Comments) Value Age Risk Factor Age < 65 years old 0 Gender Risk Factor Male 0 Hx of CHF No 0 Hx of HTN No 0 Hx of Stroke/TIA/or VTE No 0 Hx of Diabetes No 0 Hx of Vascular Disease No 0 Total 0 Treatment Treatment ordered: NONE Reason Anticoagulant not given: Not indicated/[id number] Review of Systems Constitutional: Denies: Chills, Fever, Night Sweats Eyes: Denies: Pain, Vision change ENT: Denies: Head Aches, Ear Pain, Dysphagia Skin: Denies: Rash, Lesions, Breakdown Pulmonary: Denies: Dyspnea, Cough Cardiovascular: Denies: Chest Pain, Palpitations, Orthopnea, Paroxysmal Noc. Dyspnea, Lt Headedness Gastrointestinal: Denies: Nausea, Vomiting, Abdominal Pain, Diarrhea Genitourinary: Denies: Dysuria, Frequency, Incontinence, Retention Hematologic: Denies: Bruising, Bleeding Excessively Endocrine: Denies: Polydipsia, Polyphagia, Polyuria, Heat Intolerance, Cold Intolerance, Other Endocrine Sx Musculoskeletal: Denies: Neck Pain, Back Pain, Joint Pain, Muscle Pain, Spasms Neurological: Denies: Weakness, Numbness, Change in speech, Confusion Psych: Reports: Anxiety, Other Psych (profound fearfulness about something evette sing him); Denies: Thoughts of Self Harm, Thoughts of Harming Other Physical Examination General Exam: Positive: Alert, Cooperative, No Acute Distress, Other (timid) Eye Exam: Positive: PERRLA, Conjunctiva & lids normal, EOMI; Negative: Sclera icteric ENT Exam: Positive: Atraumatic, Mucous membr. moist/pink, Pharynx Normal Neck Exam: Positive: Supple; Negative: JVD, thyromegaly Chest Exam: Positive: Clear to auscultation, Normal air movement Heart Exam: Positive: Rate Normal, Regular Rhythm, Normal S1, Normal S2; Negative: Murmurs, Rubs Abdomen Exam: Positive: Normal bowel sounds, Soft; Negative: Tenderness, Hepatospenomegaly Extremity Exam: Positive: Normal pulses; Negative: Clubbing, Cyanosis, Edema Skin Exam: Positive: Nl turgor and temperature; Negative: Breakdown, Lesion Neuro Exam: Positive: Normal Gait, Normal Speech, Cranial Nerves 3-12 NL Psych Exam: Positive: Anxiety (although he appears timid, he is cooperative and pleasant), Oriented x 3; Negative: Mental status NL Vital Signs Vital Signs Date Time Temp Pulse Resp B/P (MAP) Pulse Ox O2 Delivery O2 Flow Rate FiO2 01/27/20 06:45 97.3 100 16 132/75 (94) 97 Room Air Laboratory Data Labs 24H Laboratory Tests 2 01/26/20 12:48: Urine Opiates Screen NEGATIVE, Urine Methadone Screen NEGATIVE, Urine Barbiturates Screen NEGATIVE, Urine Phencyclidine Screen NEGATIVE, Urine Amphetamines Screen NEGATIVE, Urine Benzodiazepines Screen NEGATIVE, Urine [place] Metabolite Screen NEGATIVE, Urine Cannabinoids Screen POSITIVEH 01/26/20 13:17: Nucleated Red Blood Cells % (auto) 0.0, Anion Gap 11, Glomerular Filtration Rate > 60.0, Calcium Level 9.1, Total Bilirubin 0.5, Direct Bilirubin 0.2, Aspartate Amino Transf (AST/SGOT) 33, Alanine Aminotransferase (ALT/SGPT) 25, Alkaline Phosphatase 71, Total Protein 8.9H, Albumin 4.4, Albumin/Globulin Ratio 0.98L, Thyroid Stimulating Hormone (TSH) 1.070, Salicylates Level 6.8, Acetaminophen Level < 2.0L, Ethyl Alcohol Level < 0.003 CBC/BMP Laboratory Tests 01/26/20 13:17 Assessment/Plan 39 yo man with a history of schizophrenia who was admitted to the [facility] after he presented reporting feeling sick with fear of something chasing him and is now admitted for evaluation and treatment. Upon my examination, he appears physically well and his lab evaluation was grossly normal with the only notable finding being a toxicology screen that was positive for marijuana. Psychosis with a history of schizophrenia and tox screen positive for marijuana: -Treatment for primary team Smoking: -Offered nicotine replacement therapy that he denied At this time, medicine will sign off. Thank you for the consult. Plan / VTE VTE Prophylaxis Ordered?: No VTE Exclusion Mechanical Proph: Low Risk for VTE VTE Exclusion Pharmacological: At Low Risk for VTE ROSE DAMICO MD Jan 27, 2020 12:35
[2020-01-27 16:24] VITALS: BP 145/83
[2020-01-27] MEDS: PALIPERIDONE 3 MG ER TAB (INVEGA) PO SCH (21:58)
[2020-01-27] MEDS: traZODone 50 MG TAB PO PRN (21:58)
[2020-01-28 06:40] VITALS: BP 132/86
[2020-01-28] MEDS: PALIPERIDONE 3 MG ER TAB (INVEGA) PO SCH ×2 (08:22→20:53)
[2020-01-28 16:25] VITALS: BP 150/89
--- NOTE | 2020-01-28 22:13 | MHIPNPDOC ---
[facility] Progress Note Progress Note DATE OF SERVICE: 01/28/20 HISTORY: As per ED report: " Patient is a 39-year-old male, who as per ED report ( PSA report): "Reason for Referral Pt with a history of schizophrenia self presents to [facility] after stating "I'm sick". Chief Complaint Pt is very tearful and guarded during entire interview. Pt appears to be paranoid, pt is sitting on bed with his hands interlocked rocking back and forth. Tw reassured pt that he is safe several times during the interview. Pt minimally began to talk. Pt reports that he feels as though something is chasing him. Pt states he does not know what is chasing him just that he is scared daily and "that the thing chasing me will hurt me". Tw tried to redirect pt several times with no success. Pt is alert and oriented times 4. Pt reports poor sleep and states "I stay awake because the thing chasing me is going to get me in my bed". Pt denies SI/HI/self inj. Pt reports living with his mother, pt begins to cry when talking about his mom. Pt interacts very minimally and is difficult to engage. Interview was aborted prematurely due to pts minimal and guarded responses." VITAL SIGNS: See below. NEW TEST RESULTS: See below CURRENT MEDICATIONS: See below. MENTAL STATUS EXAMINATION: General Appearance: He was dressed in hospital clothes, hygiene and grooming were good. Eye contact was avoidant Build: thin Demeanor: cooperative, eating his dinner Eye Contact: poor Activity: calm Behavior: less guarded, cooperative Speech: more fluent, more spontaneous Mood: ''"happy" Affect: euthymic, congruent with mood Thought Process: concrete, slow Thought Content (Delusions): appears paranoid but he tries to minimize it denying it. Thought Content (Other): appears paranoid Thought Content (Aggressive): none reported Perception (Hallucinations): none reported (However, appears internally preoccupied ) Perception (Other): none reported Cognition (Impairment of): unable to assess Oriented: Awake Insight: improving Judgment: improving Diagnoses 1. Paranoid schizophrenia, acute decompensation 2. Alcohol use disorder, severe 3. Cannabis use disorder, unknown if in remission - pt poor historian 4. Nicotine use disorder Assessment The patient said that he had received his Invega Shanna long-acting injectable on January 25. He hasn't mentioned this before but there is no record as of where he received his injection. He mentioned [facility] and Kaitlynn Bergeron, staff nurse says she can call the [facility] on Wednesday morning to verify if he received his injection on Wednesday. This is the second time that he says he received his injection on the . He is in a better mood today, his speech is still impoverished, he still needs prompting, his eye contact is still avoidant but this is his usual presentation. At times he laughs inappropriately, he seems to respond to internal stimuli at times but he doesn't seem as paranoid today. Time Spent: 20 minutes Vital Signs Vital Signs Date Time Temp Pulse Resp B/P (MAP) Pulse Ox O2 Delivery O2 Flow Rate FiO2 01/28/20 16:25 98.2 87 16 150/89 (109) 01/28/20 06:40 97 Room Air Current Medications Current Medications Medications (Trade) Dose Ordered Sig/Delores Route PRN Reason Start Time Stop Time Status Last Admin Dose Admin Acetaminophen (Tylenol Tab) 650 mg Q6HP PRN PO HEADACHE or DISCOMFORT 01/26/20 16:00 Al Hydrox/Mg Hydrox/Simethicone (Mylanta) 30 ml Q4HP PRN PO HEARTBURN/INDIGESTION 01/26/20 16:00 Diphenhydramine HCl (Benadryl) 25 mg BIDP PRN PO EXTRAPERAMIDAL SIDE EFFECTS 01/26/20 20:00 Haloperidol (Haldol) 5 mg BID PO 01/26/20 21:00 01/27/20 13:11 DC 01/27/20 08:27 Home Med (Med Rec Complete!) ASDIRECTED XX 01/26/20 14:45 01/26/20 14:32 DC Magnesium Hydroxide (Milk Of Magnesia) 30 ml DAILYPRN PRN PO CONSTIPATION 01/26/20 16:00 Olanzapine (ZyPREXA ZYDIS) 5 mg Q6HP PRN PO AGITATION 01/26/20 20:00 Paliperidone (Invega) 3 mg BID PO 01/27/20 21:00 01/28/20 08:22 Trazodone HCl (Desyrel) 50 mg QHSP PRN PO INSOMNIA 01/26/20 16:00 01/27/20 21:58 Allergies Coded Allergies: No Known Allergies (Unverified , 01/26/20) CAMMY GEORGE MD Jan 28, 2020 17:37
[2020-01-29] MEDS: traZODone 50 MG TAB PO PRN ×2 (01:12→21:34)
[2020-01-29] MEDS: diphenhydrAMINE 25MG CAP PO PRN (01:12)
[2020-01-29 06:29] VITALS: BP 115/74
--- NOTE | 2020-01-29 09:15 | MHIPNPDOC ---
[facility] Progress Note Progress Note Inpatient Progress Note Abdulaziz Javed MRN: N/A Date of : N/A Date of Service: 01/29/2020 History of Present Illness The patient a 47-year-old man with a long history of psychosis presents paranoid seeking treatment as he had noticed his psychotic symptoms becoming worse. He was admitted and he has recently had his Invega Sustenna shot, but had increasing paranoia and worries. Interval History The patient is met with today. He does not engage in much with an interview, but is generally amenable to interventions. He stares blankly off and generally does not answer most questions. He has not had any aggressive behaviors and generally has complied with treatment recommendations with no concerning suicidal or homicidal thoughts found, however, he still appears to be generally psychotic. Review Of Systems Unable to engage due to mental status. Psychotherapy None on this visit. Vital Signs Reviewed. Mental Status Examination General: Well dressed with good hygiene Speech: Spontaneous and fluid Thought processes: Tangential. MSK: Smooth and coordinated gait, no signs of tremors or involuntary orofacial movements Thought content: Paranoid. Abstract reasoning, and computation: Impaired. Description of associations: Impaired. Description of abnormal or psychotic thoughts: Paranoid thoughts detected. Judgment: Limited Insight: Limited Orientation: Alert and orientated 3 Cognition: Some slowing. Recent and remote memory: Intact Attention span and concentration: Impaired due to thought process. Fund of knowledge: Unknown. Mood: "okay" Affect: Profoundly flat. Diagnoses Schizophrenia. Assessment and Plan Schizophrenia: Continue patient's Invega injection, however, discontinue oral Invega as he recently had gotten the shot, this could cause some difficulties. It appears that he will likely need augmentation regimen with Abilify as it has best evidence for improved first generation antipsychotics. Start Abilify 2 mg nightly. Discussed with patient as much as possible the risks and benefits of treatment, which he consented. Disposition Continue patient on involuntary stay, will need further treatment for psychosis, this greatly impairing. Time Spent 15 minutes. Wednesday Vital Signs Vital Signs Date Time Temp Pulse Resp B/P (MAP) Pulse Ox O2 Delivery O2 Flow Rate FiO2 01/29/20 06:29 99.1 84 14 115/74 (88) 94 01/28/20 06:40 Room Air Current Medications Current Medications Medications (Trade) Dose Ordered Sig/Delores Route PRN Reason Start Time Stop Time Status Last Admin Dose Admin Acetaminophen (Tylenol Tab) 650 mg Q6HP PRN PO HEADACHE or DISCOMFORT 01/26/20 16:00 Al Hydrox/Mg Hydrox/Simethicone (Mylanta) 30 ml Q4HP PRN PO HEARTBURN/INDIGESTION 01/26/20 16:00 Diphenhydramine HCl (Benadryl) 25 mg BIDP PRN PO EXTRAPERAMIDAL SIDE EFFECTS 01/26/20 20:00 01/29/20 01:12 Haloperidol (Haldol) 5 mg BID PO 01/26/20 21:00 01/27/20 13:11 DC 01/27/20 08:27 Home Med (Med Rec Complete!) ASDIRECTED XX 01/26/20 14:45 01/26/20 14:32 DC Magnesium Hydroxide (Milk Of Magnesia) 30 ml DAILYPRN PRN PO CONSTIPATION 01/26/20 16:00 Olanzapine (ZyPREXA ZYDIS) 5 mg Q6HP PRN PO AGITATION 01/26/20 20:00 Paliperidone (Invega) 3 mg BID PO 01/27/20 21:00 01/28/20 20:53 Trazodone HCl (Desyrel) 50 mg QHSP PRN PO INSOMNIA 01/26/20 16:00 01/29/20 01:12 Allergies Coded Allergies: No Known Allergies (Unverified , 01/26/20) THEA EDWARDS DO Jan 29, 2020 09:14
[2020-01-29] MEDS: OLANZapine ORAL DISINTEGRATING TAB 5MG PO PRN (15:48)
[2020-01-29 16:08] VITALS: BP 136/82
[2020-01-29] MEDS ORDERED: ARIPiprazole 2 MG TAB PO SCH (21:00)
[2020-01-30 06:28] VITALS: BP 132/74
--- NOTE | 2020-01-30 09:45 | MHIPNPDOC ---
[facility] Progress Note Progress Note Inpatient Progress Note Abdulaziz Javed MRN: N/A Date of : N/A Date of Service: 01/30/2020 History of Present Illness The patient a 47-year-old man with a long history of psychosis presents paranoid seeking treatment as he had noticed his psychotic symptoms becoming worse. He was admitted and he has recently had his Invega Sustenna shot, but had increasing paranoia and worries. Interval History The patient is met with today, he still has less to say that most people but generally is more talkative. He reports that he is feeling somewhat better, less irritated and more focused. He reports that he feel scared about being here as he wants to go home but is understanding of needing further treatment. He has had no behavioral problems overnight and is making strides. Review Of Systems Unable to engage in full and comprehensive due to lack of speaking. Psychotherapy None on this visit. Vital Signs Reviewed. Mental Status Examination General: Well dressed with good hygiene Speech: Monotonous and paucity in production. Thought processes: More linear. MSK: Smooth and coordinated gait, no signs of tremors or involuntary orofacial movements Thought content: Paranoid. Abstract reasoning, and computation: Impaired. Description of associations: Impaired. Description of abnormal or psychotic thoughts: Paranoid thoughts detected. Judgment: Limited Insight: Limited Orientation: Alert and orientated 3 Cognition: Some slowing. Recent and remote memory: Intact Attention span and concentration: Impaired due to thought process. Fund of knowledge: Unknown. Mood: "okay" Affect: Profoundly flat. Diagnoses Schizophrenia. Assessment and Plan Schizophrenia: Increase Abilify to 5 mg nightly. Disposition Patient will need a further inpatient admission due his severely impairing psychosis and need for a complex discharge plan. Time Spent 15 minutes. Wednesday Vital Signs Vital Signs Date Time Temp Pulse Resp B/P (MAP) Pulse Ox O2 Delivery O2 Flow Rate FiO2 01/30/20 06:28 98.4 103 14 132/74 (93) 97 Room Air Current Medications Current Medications Medications (Trade) Dose Ordered Sig/Delores Route PRN Reason Start Time Stop Time Status Last Admin Dose Admin Acetaminophen (Tylenol Tab) 650 mg Q6HP PRN PO HEADACHE or DISCOMFORT 01/26/20 16:00 Al Hydrox/Mg Hydrox/Simethicone (Mylanta) 30 ml Q4HP PRN PO HEARTBURN/INDIGESTION 01/26/20 16:00 Aripiprazole (AbiLIFY) 2 mg QHS PO 01/29/20 21:00 01/29/20 21:34 Diphenhydramine HCl (Benadryl) 25 mg BIDP PRN PO EXTRAPERAMIDAL SIDE EFFECTS 01/26/20 20:00 01/29/20 01:12 Haloperidol (Haldol) 5 mg BID PO 01/26/20 21:00 01/27/20 13:11 DC 01/27/20 08:27 Home Med (Med Rec Complete!) ASDIRECTED XX 01/26/20 14:45 01/26/20 14:32 DC Magnesium Hydroxide (Milk Of Magnesia) 30 ml DAILYPRN PRN PO CONSTIPATION 01/26/20 16:00 Olanzapine (ZyPREXA ZYDIS) 5 mg Q6HP PRN PO AGITATION 01/26/20 20:00 01/29/20 15:48 Paliperidone (Invega) 3 mg BID PO 01/27/20 21:00 01/29/20 09:45 DC 01/28/20 20:53 Trazodone HCl (Desyrel) 50 mg QHSP PRN PO INSOMNIA 01/26/20 16:00 01/29/20 21:34 Allergies Coded Allergies: No Known Allergies (Unverified , 01/26/20) THEA EDWARDS DO Jan 30, 2020 09:45
[2020-01-30 17:19] VITALS: BP 130/82
[2020-01-30] MEDS: traZODone 50 MG TAB PO PRN (20:22)
[2020-01-30] MEDS: ACETAMINOPHEN TAB 650MG DOSE (2X325MG) PO PRN (20:23)
[2020-01-31 06:10] VITALS: BP 143/66
--- NOTE | 2020-01-31 09:56 | MHIPNPDOC ---
[facility] Progress Note Progress Note Inpatient Progress Note Abdulaziz Javed MRN: N/A Date of : N/A Date of Service: 01/31/2020 History of Present Illness The patient a 47-year-old man with a long history of psychosis presents paranoid seeking treatment as he had noticed his psychotic symptoms becoming worse. He was admitted and he has recently had his Invega Sustenna shot, but had increasing paranoia and worries. Interval History The patient is met with today. He reports that he is doing "a little better. He is not able to describe a significant amount of change other than yes or no with significant latency in his answers. He has had no behavioral problems and generally does not cause difficulties on the unit. He has had no suicidal or homicidal ideation and other than reporting "better" he is not able to describe much else. Review Of Systems Unable to determine due to mental status. Psychotherapy None on this visit. Vital Signs Reviewed. Mental Status Examination General: Well dressed with good hygiene Speech: Monotonous and paucity in production. Thought processes: More linear. MSK: Smooth and coordinated gait, no signs of tremors or involuntary orofacial movements Thought content: Paranoid. Abstract reasoning, and computation: Impaired. Description of associations: Impaired. Description of abnormal or psychotic thoughts: Paranoid thoughts detected. Judgment: Limited Insight: Limited Orientation: Alert and orientated 3 Cognition: Some slowing. Recent and remote memory: Intact Attention span and concentration: Impaired due to thought process. Fund of knowledge: Unknown. Mood: "okay" Affect: Profoundly flat. Diagnoses Schizophrenia. Assessment and Plan Schizophrenia: Increase Abilify to 10 mg nightly. Disposition Patient will need a further inpatient admission due his severely impairing psychosis and need for a complex discharge plan. Time Spent 15 minutes. Wednesday Vital Signs Vital Signs Date Time Temp Pulse Resp B/P (MAP) Pulse Ox O2 Delivery O2 Flow Rate FiO2 01/31/20 06:10 98.4 99 16 143/66 (91) 95 Room Air Current Medications Current Medications Medications (Trade) Dose Ordered Sig/Delores Route PRN Reason Start Time Stop Time Status Last Admin Dose Admin Acetaminophen (Tylenol Tab) 650 mg Q6HP PRN PO HEADACHE or DISCOMFORT 01/26/20 16:00 01/30/20 20:23 Al Hydrox/Mg Hydrox/Simethicone (Mylanta) 30 ml Q4HP PRN PO HEARTBURN/INDIGESTION 01/26/20 16:00 Aripiprazole (AbiLIFY) 2 mg QHS PO 01/29/20 21:00 01/30/20 11:09 DC 01/29/20 21:34 Aripiprazole (AbiLIFY) 5 mg QHS PO 01/30/20 21:00 01/30/20 20:22 Diphenhydramine HCl (Benadryl) 25 mg BIDP PRN PO EXTRAPERAMIDAL SIDE EFFECTS 01/26/20 20:00 01/29/20 01:12 Haloperidol (Haldol) 5 mg BID PO 01/26/20 21:00 01/27/20 13:11 DC 01/27/20 08:27 Home Med (Med Rec Complete!) ASDIRECTED XX 01/26/20 14:45 01/26/20 14:32 DC Magnesium Hydroxide (Milk Of Magnesia) 30 ml DAILYPRN PRN PO CONSTIPATION 01/26/20 16:00 Olanzapine (ZyPREXA ZYDIS) 5 mg Q6HP PRN PO AGITATION 01/26/20 20:00 01/29/20 15:48 Paliperidone (Invega) 3 mg BID PO 01/27/20 21:00 01/29/20 09:45 DC 01/28/20 20:53 Trazodone HCl (Desyrel) 50 mg QHSP PRN PO INSOMNIA 01/26/20 16:00 01/30/20 20:22 Allergies Coded Allergies: No Known Allergies (Unverified , 01/26/20) THEA EDWARDS DO Jan 31, 2020 09:56
[2020-01-31 16:18] VITALS: BP 105/60
[2020-01-31] MEDS: ACETAMINOPHEN TAB 650MG DOSE (2X325MG) PO PRN (20:03)
[2020-01-31] MEDS: hydrOXYzine 25 MG TAB PO PRN (20:03)
[2020-02-01 06:21] VITALS: BP 131/86
--- NOTE | 2020-02-01 09:48 | MHIPNPDOC ---
[facility] Progress Note Progress Note Inpatient Progress Note Abdulaziz Javed MRN: N/A Date of : N/A Date of Service: 02/01/2020 History of Present Illness The patient a 47-year-old man with a long history of psychosis presents paranoid seeking treatment as he had noticed his psychotic symptoms becoming worse. He was admitted and he has recently had his Invega Sustenna shot, but had increasing paranoia and worries. Interval History The patient is met with today. However, he only remains in the room for a short time and subsequently leaves frustrated and refuses to meet again. The staff notes that he has been a little bit worse today with some increased agitation, but no overt behavioral problems. He has been lowered to a dose of 5 Abilify at night. Review Of Systems Unable to obtain due to refusal. Psychotherapy None on this visit. Vital Signs Reviewed. Mental Status Examination Patient refuses, leaves the room quickly with a flat affect and little to no explanation. Diagnoses Schizophrenia. Assessment and Plan Schizophrenia: Decrease Abilify to 5 mg nightly could be having akathisia. Disposition Patient will need a further inpatient admission due his severely impairing psychosis and need for a complex discharge plan. Time Spent 15 minutes. Vital Signs Vital Signs Date Time Temp Pulse Resp B/P (MAP) Pulse Ox O2 Delivery O2 Flow Rate FiO2 02/01/20 06:21 98.0 96 16 131/86 (101) Room Air 01/31/20 06:10 95 Current Medications Current Medications Medications (Trade) Dose Ordered Sig/Delores Route PRN Reason Start Time Stop Time Status Last Admin Dose Admin Acetaminophen (Tylenol Tab) 650 mg Q6HP PRN PO HEADACHE or DISCOMFORT 01/26/20 16:00 01/31/20 20:03 Al Hydrox/Mg Hydrox/Simethicone (Mylanta) 30 ml Q4HP PRN PO HEARTBURN/INDIGESTION 01/26/20 16:00 Aripiprazole (AbiLIFY) 2 mg QHS PO 01/29/20 21:00 01/30/20 11:09 DC 01/29/20 21:34 Aripiprazole (AbiLIFY) 5 mg QHS PO 01/30/20 21:00 01/31/20 16:29 DC 01/30/20 20:22 Aripiprazole (AbiLIFY) 10 mg QHS PO 01/31/20 21:00 01/31/20 20:03 Diphenhydramine HCl (Benadryl) 25 mg BIDP PRN PO EXTRAPERAMIDAL SIDE EFFECTS 01/26/20 20:00 01/29/20 01:12 Haloperidol (Haldol) 5 mg BID PO 01/26/20 21:00 01/27/20 13:11 DC 01/27/20 08:27 Home Med (Med Rec Complete!) ASDIRECTED XX 01/26/20 14:45 01/26/20 14:32 DC Hydroxyzine HCl (Atarax) 25 mg QHSP PRN PO INSOMNIA 01/31/20 16:30 01/31/20 20:03 Magnesium Hydroxide (Milk Of Magnesia) 30 ml DAILYPRN PRN PO CONSTIPATION 01/26/20 16:00 Olanzapine (ZyPREXA ZYDIS) 5 mg Q6HP PRN PO AGITATION 01/26/20 20:00 01/29/20 15:48 Paliperidone (Invega) 3 mg BID PO 01/27/20 21:00 01/29/20 09:45 DC 01/28/20 20:53 Trazodone HCl (Desyrel) 50 mg QHSP PRN PO INSOMNIA 01/26/20 16:00 01/31/20 16:28 DC 01/30/20 20:22 Allergies Coded Allergies: No Known Allergies (Unverified , 01/26/20) THEA EDWARDS DO Feb 01, 2020 09:48
[2020-02-01 18:42] VITALS: BP 136/90
[2020-02-02 06:47] VITALS: BP 135/86
--- NOTE | 2020-02-02 09:24 | MHIPNPDOC ---
[facility] Progress Note Progress Note Inpatient Progress Note Abdulaziz Javed MRN: N/A Date of : N/A Date of Service: 02/02/2020 History of Present Illness The patient a 47-year-old man with a long history of psychosis presents paranoid seeking treatment as he had noticed his psychotic symptoms becoming worse. He was admitted and he has recently had his Invega Sustenna shot, but had increasing paranoia and worries. Interval History The patient is met with today. He reports he is feeling better, however, he has refused his Abilify last night. He reports that he "forgot." The staff reports that he still can be paranoid at times, but has made some strides towards improving. He has had no behavioral problems overnight. Review Of Systems Denies any particular side effects from medications or reasons for discontinuing. Psychotherapy None on this visit. Vital Signs Reviewed. Mental Status Examination General: Well dressed with good hygiene Speech: Spontaneous and fluid Thought processes: Circumstantial positive thought. MSK: Smooth and coordinated gait, no signs of tremors or involuntary orofacial movements Thought content: Less paranoid. Abstract reasoning, and computation: Mildly improved. Description of associations: Improved. Description of abnormal or psychotic thoughts: Denies any suicidal or homicidal ideation. Denies any auditory or visual hallucinations. Does not appear to be responding to internal stimuli. Does not appear to be endorsing any bizarre or paranoid ideation. Judgment: Limited. Insight: Limited. Orientation: Alert and orientated 3 Cognition: Grossly normal Recent and remote memory: Intact Attention span and concentration: Improved, less latency. Fund of knowledge: Adequate Mood: "okay" Affect: More reactive. Diagnoses Schizophrenia. Assessment and Plan Schizophrenia: Continue Abilify 5 mg daily. Disposition Patient will need a further inpatient admission due his severely impairing psychosis and need for a complex discharge plan. Time Spent 15 minutes. Wednesday Vital Signs Vital Signs Date Time Temp Pulse Resp B/P (MAP) Pulse Ox O2 Delivery O2 Flow Rate FiO2 02/02/20 06:47 97.5 88 18 135/86 (102) 97 Room Air Current Medications Current Medications Medications (Trade) Dose Ordered Sig/Delores Route PRN Reason Start Time Stop Time Status Last Admin Dose Admin Acetaminophen (Tylenol Tab) 650 mg Q6HP PRN PO HEADACHE or DISCOMFORT 01/26/20 16:00 01/31/20 20:03 Al Hydrox/Mg Hydrox/Simethicone (Mylanta) 30 ml Q4HP PRN PO HEARTBURN/INDIGESTION 01/26/20 16:00 Aripiprazole (AbiLIFY) 2 mg QHS PO 01/29/20 21:00 01/30/20 11:09 DC 01/29/20 21:34 Aripiprazole (AbiLIFY) 5 mg QHS PO 01/30/20 21:00 01/31/20 16:29 DC 01/30/20 20:22 Aripiprazole (AbiLIFY) 5 mg QHS PO 02/01/20 21:00 Aripiprazole (AbiLIFY) 10 mg QHS PO 01/31/20 21:00 02/01/20 11:35 DC 01/31/20 20:03 Diphenhydramine HCl (Benadryl) 25 mg BIDP PRN PO EXTRAPERAMIDAL SIDE EFFECTS 01/26/20 20:00 01/29/20 01:12 Haloperidol (Haldol) 5 mg BID PO 01/26/20 21:00 01/27/20 13:11 DC 01/27/20 08:27 Home Med (Med Rec Complete!) ASDIRECTED XX 01/26/20 14:45 01/26/20 14:32 DC Hydroxyzine HCl (Atarax) 25 mg QHSP PRN PO INSOMNIA 01/31/20 16:30 01/31/20 20:03 Magnesium Hydroxide (Milk Of Magnesia) 30 ml DAILYPRN PRN PO CONSTIPATION 01/26/20 16:00 Olanzapine (ZyPREXA ZYDIS) 5 mg Q6HP PRN PO AGITATION 01/26/20 20:00 01/29/20 15:48 Paliperidone (Invega) 3 mg BID PO 01/27/20 21:00 01/29/20 09:45 DC 01/28/20 20:53 Trazodone HCl (Desyrel) 50 mg QHSP PRN PO INSOMNIA 01/26/20 16:00 01/31/20 16:28 DC 01/30/20 20:22 Allergies Coded Allergies: No Known Allergies (Unverified , 01/26/20) THEA EDWARDS DO February 02, 2020 09:24
[2020-02-02] MEDS ORDERED: BENZTROPINE 0.5 MG TAB PO PRN (10:30)
[2020-02-02] MEDS ORDERED: PILL CUTTER 1 EACH XX PRN (10:30)
[2020-02-02] MEDS: OLANZapine ORAL DISINTEGRATING TAB 5MG PO PRN (16:41)
[2020-02-02 16:46] VITALS: BP 116/66
[2020-02-03] MEDS: OLANZapine ORAL DISINTEGRATING TAB 5MG PO PRN (02:49)
[2020-02-03 06:24] VITALS: BP 115/65
[2020-02-03 16:29] VITALS: BP 136/84
[2020-02-03] MEDS: hydrOXYzine 25 MG TAB PO PRN (21:18)
[2020-02-04 05:57] VITALS: BP 140/68
[2020-02-04] MEDS: ACETAMINOPHEN TAB 650MG DOSE (2X325MG) PO PRN (13:26)
[2020-02-04 16:25] VITALS: BP 130/85
[2020-02-04] MEDS: hydrOXYzine 25 MG TAB PO PRN (21:17)
[2020-02-05 06:23] VITALS: BP 115/69
--- NOTE | 2020-02-05 09:13 | MHIPNPDOC ---
[facility] Progress Note Progress Note Inpatient Progress Note Abdulaziz Javed MRN: N/A Date of : N/A Date of Service: 02/05/2020 History of Present Illness The patient a 47-year-old man with a long history of psychosis presents paranoid seeking treatment as he had noticed his psychotic symptoms becoming worse. He was admitted and he has recently had his Invega Sustenna shot, but had increasing paranoia and worries. Interval History The patient is met with today. He reports that he is doing somewhat better. He still generally does not elaborate on details, however his latency has improved greatly. He has had no problems over the weekend and asks about when he could go home. He currently lives with his mother and reports that he is amenable to returning home. Review Of Systems General: Denies fever or appetite changes Cardiovascular: Denies Chest pain or palpations GI: Denies Nausea, vomiting, or bowel changes Respiratory: Denies shortness of breath or cough Neuro: Denies dizziness, tremors Derm: Denies any rashes or pruritus : Denies any dysuria or urinary problems MSK: Denies any muscle tightness or stiffness HEENT: Denies any vision changes or headaches Psychotherapy None on this visit. Vital Signs Reviewed. Mental Status Examination General: Well dressed with good hygiene Speech: Spontaneous and fluid Thought processes: Mildly improved. MSK: Smooth and coordinated gait, no signs of tremors or involuntary orofacial movements Thought content: Less paranoid. Abstract reasoning, and computation: Mildly improved. Description of associations: Improved. Description of abnormal or psychotic thoughts: Denies any suicidal or homicidal ideation. Denies any auditory or visual hallucinations. Does not appear to be responding to internal stimuli. Does not appear to be endorsing any bizarre or paranoid ideation. Judgment: Limited. Insight: Limited. Orientation: Alert and orientated 3 Cognition: Grossly normal Recent and remote memory: Intact Attention span and concentration: Improved, less latency. Fund of knowledge: Adequate Mood: "okay" Affect: More reactive. Diagnoses Schizophrenia. Assessment and Plan Schizophrenia: Continue Abilify 5 mg nightly. We will ascertain patient's baseline mental status from mother in order to determine discharge plan. Disposition We will need baseline mental status in order to determine the patient is close to that and to have mother comment on his functional ability to determine if he is appropriate to be discharged. Time Spent 15 minutes. Wednesday Vital Signs Vital Signs Date Time Temp Pulse Resp B/P (MAP) Pulse Ox O2 Delivery O2 Flow Rate FiO2 02/05/20 06:23 98.5 106 14 115/69 (84) 97 Room Air Current Medications Current Medications Medications (Trade) Dose Ordered Sig/Delores Route PRN Reason Start Time Stop Time Status Last Admin Dose Admin Acetaminophen (Tylenol Tab) 650 mg Q6HP PRN PO HEADACHE or DISCOMFORT 01/26/20 16:00 02/04/20 13:26 Al Hydrox/Mg Hydrox/Simethicone (Mylanta) 30 ml Q4HP PRN PO HEARTBURN/INDIGESTION 01/26/20 16:00 Aripiprazole (AbiLIFY) 2 mg QHS PO 01/29/20 21:00 01/30/20 11:09 DC 01/29/20 21:34 Aripiprazole (AbiLIFY) 5 mg QHS PO 01/30/20 21:00 01/31/20 16:29 DC 01/30/20 20:22 Aripiprazole (AbiLIFY) 5 mg QHS PO 02/01/20 21:00 02/04/20 21:17 Aripiprazole (AbiLIFY) 10 mg QHS PO 01/31/20 21:00 02/01/20 11:35 DC 01/31/20 20:03 Benztropine Mesylate (Cogentin) 0.25 mg BIDP PRN PO eps 02/02/20 10:30 Diphenhydramine HCl (Benadryl) 25 mg BIDP PRN PO EXTRAPERAMIDAL SIDE EFFECTS 01/26/20 20:00 01/29/20 01:12 Haloperidol (Haldol) 5 mg BID PO 01/26/20 21:00 01/27/20 13:11 DC 01/27/20 08:27 Home Med (Med Rec Complete!) ASDIRECTED XX 01/26/20 14:45 01/26/20 14:32 DC Hydroxyzine HCl (Atarax) 25 mg QHSP PRN PO INSOMNIA 01/31/20 16:30 02/04/20 21:17 Magnesium Hydroxide (Milk Of Magnesia) 30 ml DAILYPRN PRN PO CONSTIPATION 01/26/20 16:00 Olanzapine (ZyPREXA ZYDIS) 5 mg Q6HP PRN PO AGITATION 01/26/20 20:00 02/03/20 02:49 Paliperidone (Invega) 3 mg BID PO 01/27/20 21:00 01/29/20 09:45 DC 01/28/20 20:53 Trazodone HCl (Desyrel) 50 mg QHSP PRN PO INSOMNIA 01/26/20 16:00 01/31/20 16:28 DC 01/30/20 20:22 Allergies Coded Allergies: No Known Allergies (Unverified , 01/26/20) THEA EDWARDS DO February 05, 2020 09:13
[2020-02-05 15:38] VITALS: BP 133/75
[2020-02-05] MEDS: hydrOXYzine 25 MG TAB PO PRN (20:01)
[2020-02-05] MEDS: OLANZapine ORAL DISINTEGRATING TAB 5MG PO PRN (21:46)
[2020-02-06 06:15] VITALS: BP 122/73
--- NOTE | 2020-02-06 09:45 | MHIPNPDOC ---
[facility] Progress Note Progress Note Inpatient Progress Note Abdulaziz Javed MRN: N/A Date of : N/A Date of Service: 02/06/2020 History of Present Illness The patient a 47-year-old man with a long history of psychosis presents paranoid seeking treatment as he had noticed his psychotic symptoms becoming worse. He was admitted and he has recently had his Invega Sustenna shot, but had increasing paranoia and worries. Interval History The patient was met with today. He reports that he is interested in going home, however he had a difficult evening with some confusion, , and paranoia. He reportedly felt much worse towards the evening when he had his Abilify. He generally engages little with the interview, but is much more able to speak with less latency. He reports that he is feeling somewhat better but is anxious about going home. Review Of Systems General: Denies fever or appetite changes Cardiovascular: Denies Chest pain or palpations GI: Denies Nausea, vomiting, or bowel changes Respiratory: Denies shortness of breath or cough Neuro: Denies dizziness, tremors Derm: Denies any rashes or pruritus : Denies any dysuria or urinary problems MSK: Denies any muscle tightness or stiffness HEENT: Denies any vision changes or headaches Psychotherapy None on this visit. Vital Signs Reviewed. Mental Status Examination General: Well dressed with good hygiene Speech: Spontaneous and fluid Thought processes: Mildly improved. MSK: Smooth and coordinated gait, no signs of tremors or involuntary orofacial movements Thought content: Less paranoid. Abstract reasoning, and computation: Mildly improved. Description of associations: Improved. Description of abnormal or psychotic thoughts: Denies any suicidal or homicidal ideation. Denies any auditory or visual hallucinations. Does not appear to be responding to internal stimuli. Does not appear to be endorsing any bizarre or paranoid ideation. Judgment: Limited. Insight: Limited. Orientation: Alert and orientated 3 Cognition: Grossly normal Recent and remote memory: Intact Attention span and concentration: Improved, less latency. Fund of knowledge: Adequate Mood: "okay" Affect: More reactive. Diagnoses Schizophrenia. Assessment and Plan Schizophrenia: Discontinue Abilify, could be making patient worse. Possible transient reaction related to low levels of Invega prior to his shot. Will ascertain whether patient is ready for discharge later this week. Ideally helping to stabilize his paranoia at night as well as determine if this is his baseline mental status will be critical to creating an amenable discharge plan. Disposition Time Spent 15 minutes. Wednesday Vital Signs Vital Signs Date Time Temp Pulse Resp B/P (MAP) Pulse Ox O2 Delivery O2 Flow Rate FiO2 02/06/20 06:15 97.4 85 16 122/73 (89) 97 Room Air Current Medications Current Medications Medications (Trade) Dose Ordered Sig/Delores Route PRN Reason Start Time Stop Time Status Last Admin Dose Admin Acetaminophen (Tylenol Tab) 650 mg Q6HP PRN PO HEADACHE or DISCOMFORT 01/26/20 16:00 02/04/20 13:26 Al Hydrox/Mg Hydrox/Simethicone (Mylanta) 30 ml Q4HP PRN PO HEARTBURN/INDIGESTION 01/26/20 16:00 Aripiprazole (AbiLIFY) 2 mg QHS PO 01/29/20 21:00 01/30/20 11:09 DC 01/29/20 21:34 Aripiprazole (AbiLIFY) 5 mg QHS PO 01/30/20 21:00 01/31/20 16:29 DC 01/30/20 20:22 Aripiprazole (AbiLIFY) 5 mg QHS PO 02/01/20 21:00 02/05/20 20:01 Aripiprazole (AbiLIFY) 10 mg QHS PO 01/31/20 21:00 02/01/20 11:35 DC 01/31/20 20:03 Benztropine Mesylate (Cogentin) 0.25 mg BIDP PRN PO eps 02/02/20 10:30 Diphenhydramine HCl (Benadryl) 25 mg BIDP PRN PO EXTRAPERAMIDAL SIDE EFFECTS 01/26/20 20:00 01/29/20 01:12 Haloperidol (Haldol) 5 mg BID PO 01/26/20 21:00 01/27/20 13:11 DC 01/27/20 08:27 Home Med (Med Rec Complete!) ASDIRECTED XX 01/26/20 14:45 01/26/20 14:32 DC Hydroxyzine HCl (Atarax) 25 mg QHSP PRN PO INSOMNIA 01/31/20 16:30 02/05/20 20:01 Magnesium Hydroxide (Milk Of Magnesia) 30 ml DAILYPRN PRN PO CONSTIPATION 01/26/20 16:00 Olanzapine (ZyPREXA ZYDIS) 5 mg Q6HP PRN PO AGITATION 01/26/20 20:00 02/05/20 21:46 Paliperidone (Invega) 3 mg BID PO 01/27/20 21:00 01/29/20 09:45 DC 01/28/20 20:53 Trazodone HCl (Desyrel) 50 mg QHSP PRN PO INSOMNIA 01/26/20 16:00 01/31/20 16:28 DC 01/30/20 20:22 Allergies Coded Allergies: No Known Allergies (Unverified , 01/26/20) THEA EDWARDS DO February 06, 2020 09:45
[2020-02-06 15:24] VITALS: BP 138/94
[2020-02-06] MEDS: diphenhydrAMINE 25MG CAP PO PRN (22:46)
[2020-02-07] MEDS: OLANZapine ORAL DISINTEGRATING TAB 5MG PO PRN (03:40)
[2020-02-07 06:43] VITALS: BP 154/70
--- NOTE | 2020-02-07 09:11 | MHIPNPDOC ---
[facility] Progress Note Progress Note Inpatient Progress Note Abdulaziz Javed MRN: N/A Date of : N/A Date of Service: 02/07/2020 History of Present Illness The patient a 47-year-old man with a long history of psychosis presents paranoid seeking treatment as he had noticed his psychotic symptoms becoming worse. He was admitted and he has recently had his Invega Sustenna shot, but had increasing paranoia and worries. Interval History The patient met with me today. He reports he is doing much better since the start of Abilify. He has been doing much improved having no major problems overnight and generally being well engaged in treatment. He reports he is feeling good and is interested in going home. He has no complaints today. Review Of Systems General: Denies fever or appetite changes Cardiovascular: Denies Chest pain or palpations GI: Denies Nausea, vomiting, or bowel changes Respiratory: Denies shortness of breath or cough Neuro: Denies dizziness, tremors Derm: Denies any rashes or pruritus : Denies any dysuria or urinary problems MSK: Denies any muscle tightness or stiffness HEENT: Denies any vision changes or headaches Psychotherapy None on this visit. Vital Signs Reviewed. Mental Status Examination General: Well dressed with good hygiene Speech: Spontaneous and fluid Thought processes: Linear and logical MSK: Smooth and coordinated gait, no signs of tremors or involuntary orofacial movements Thought content: Future orientated Abstract reasoning, and computation: Intact Description of associations: Intact Description of abnormal or psychotic thoughts: Denies any suicidal or homicidal ideation. Denies any auditory or visual hallucinations. Does not appear to be responding to internal stimuli. Does not appear to be endorsing any bizarre or paranoid ideation. Judgment: fair Insight: fair Orientation: Alert and orientated 3 Cognition: Grossly normal Recent and remote memory: Intact Attention span and concentration: Intact Fund of knowledge: Adequate Mood: "okay" Affect: Euthymic with a full range Diagnoses Schizophrenia. Assessment and Plan Schizophrenia: Continue Invega shot 234 every month Disposition Discharge tomorrow if continues to improve. Time Spent 15 minutes W Vital Signs Vital Signs Date Time Temp Pulse Resp B/P (MAP) Pulse Ox O2 Delivery O2 Flow Rate FiO2 02/07/20 06:43 96.9 90 14 154/70 (98) 02/06/20 06:15 97 Room Air Current Medications Current Medications Medications (Trade) Dose Ordered Sig/Delores Route PRN Reason Start Time Stop Time Status Last Admin Dose Admin Acetaminophen (Tylenol Tab) 650 mg Q6HP PRN PO HEADACHE or DISCOMFORT 01/26/20 16:00 02/04/20 13:26 Al Hydrox/Mg Hydrox/Simethicone (Mylanta) 30 ml Q4HP PRN PO HEARTBURN/INDIGESTION 01/26/20 16:00 Aripiprazole (AbiLIFY) 2 mg QHS PO 01/29/20 21:00 01/30/20 11:09 DC 01/29/20 21:34 Aripiprazole (AbiLIFY) 5 mg QHS PO 01/30/20 21:00 01/31/20 16:29 DC 01/30/20 20:22 Aripiprazole (AbiLIFY) 5 mg QHS PO 02/01/20 21:00 02/06/20 10:35 DC 02/05/20 20:01 Aripiprazole (AbiLIFY) 10 mg QHS PO 01/31/20 21:00 02/01/20 11:35 DC 01/31/20 20:03 Benztropine Mesylate (Cogentin) 0.25 mg BIDP PRN PO eps 02/02/20 10:30 Diphenhydramine HCl (Benadryl) 25 mg BIDP PRN PO EXTRAPERAMIDAL SIDE EFFECTS 01/26/20 20:00 02/06/20 22:46 Haloperidol (Haldol) 5 mg BID PO 01/26/20 21:00 01/27/20 13:11 DC 01/27/20 08:27 Home Med (Med Rec Complete!) ASDIRECTED XX 01/26/20 14:45 01/26/20 14:32 DC Hydroxyzine HCl (Atarax) 25 mg QHSP PRN PO INSOMNIA 01/31/20 16:30 02/05/20 20:01 Magnesium Hydroxide (Milk Of Magnesia) 30 ml DAILYPRN PRN PO CONSTIPATION 01/26/20 16:00 Olanzapine (ZyPREXA ZYDIS) 5 mg Q6HP PRN PO AGITATION 01/26/20 20:00 02/07/20 03:40 Paliperidone (Invega) 3 mg BID PO 01/27/20 21:00 01/29/20 09:45 DC 01/28/20 20:53 Trazodone HCl (Desyrel) 50 mg QHSP PRN PO INSOMNIA 01/26/20 16:00 01/31/20 16:28 DC 01/30/20 20:22 Allergies Coded Allergies: No Known Allergies (Unverified , 01/26/20) THEA EDWARDS DO February 07, 2020 09:11
[2020-02-07 15:45] VITALS: BP 126/77
[2020-02-07] MEDS: hydrOXYzine 25 MG TAB PO PRN (20:02)
[2020-02-08 06:08] VITALS: BP 110/68
--- NOTE | 2020-02-08 09:32 | MHDSPDOC ---
[facility] Discharge Summary Discharge Summary DATE OF ADMISSION: Jan 26, 2020 at 15:47 DATE OF DISCHARGE: 02/08/20 Discharge Abdulaziz Javed MRN: N/A Date of : N/A Date of Service: 02/08/2020 Diagnoses Schizophrenia. History of Present Illness The patient a 47-year-old man with a long history of psychosis presents paranoid seeking treatment as he had noticed his psychotic symptoms becoming worse. He was admitted and he has recently had his Invega Sustenna shot, but had incr easing paranoia and worries. Consultants Involved Hospitalist/PCP screening Treatment and Progress On The Unit The patient was admitted to the inpatient mental health unit. It was initially unclear as to why his paranoia had become worse. However, he was tried on augmentation of Abilify to his Invega Sustenna. It was confirmed that he had had his Invega Sustenna shot just before his presentation and it was not clear as to why there was decompensation. He did get slightly worse on the Abilify, however, it was taken away and he improved well returned to his baseline mental status. The patient requested to leave and has done significantly better in the past days where his request was acknowledged. He did have some episodes of paranoia, but otherwise had an uneventful admission. Discharge Assessment 47-year-old man with likely schizophrenia augmentation with Abilify appears to make him worse, which could be related to teratogen versus his Invega Sustenna losing its effect towards the end of the month, a well-known effect with Invega Sustenna. He stabilized as well and is triage for discharge. The patient at the time of discharge did not meet criteria for involuntary admission/extension due to having a baseline mental status exam, fair insight into the situation, They are engaged in the discharge process, as well as being friendly and amenable in behavioral control and havent been engaging in any observed concerning behavior or ideation recently. They decline voluntary extension/admission at this time and must be discharged in good nazia, as Im unable to make a case for holding the patient against their will. They may have historical risk factors of admissions and other interactions with psychiatry however, those are not modifiable from a clinical perspective. The patient will need to be discharged in good nazia. Mental Status Examination General: Well dressed with good hygiene Speech: Spontaneous and fluid Thought processes: Linear and logical MSK: Smooth and coordinated gait, no signs of tremors or involuntary orofacial movements Thought content: Future orientated Abstract reasoning, and computation: Intact Description of associations: Intact Description of abnormal or psychotic thoughts: Denies any suicidal or homicidal ideation. Denies any auditory or visual hallucinations. Does not appear to be responding to internal stimuli. Does not appear to be endorsing any bizarre or paranoid ideation. Judgment: Baseline. Insight: Baseline. Orientation: Alert and orientated 3 Cognition: Grossly normal Recent and remote memory: Intact Attention span and concentration: Intact Fund of knowledge: Adequate Mood: "okay" Affect: More euthymic. Follow Up The social work team worked during the predischarge meeting in order to evaluate for further issues of lethality address them fully before discharge. They worked on safety planning with the patient's family members in order to ensure that the patient will have a safe and effective discharge. Time Spent The amount of time spent in the coordination of care for this patient was approx imately 45 minutes. Vital Signs/I&Os Vital Signs Date Time Temp Pulse Resp B/P (MAP) Pulse Ox O2 Delivery O2 Flow Rate FiO2 02/08/20 06:08 96.9 92 12 110/68 (82) Room Air 02/06/20 06:15 97 Medications Scheduled Paliperidone Palmitate (Invega Sustenna) 234 Mg/1.5 Ml Syringe, 234 MG SC QMONTH for thoughts, (Reported) Allergies Coded Allergies: No Known Allergies (Unverified , 01/26/20) THEA EDWARDS DO February 08, 2020 09:32
== END 2020-02-08 13:25 | disposition home or self-care (01) | DRG 885 ==
LOC: M ED 12:19 → M ED INP 15:47 → M PSY 20:32
PROVIDERS: ADMIT Psychiatry & Neurology Addiction Medicine; ATTEND Psychiatry & Neurology Addiction Medicine
DX: F20.0 Paranoid schizophrenia (principal); F17.200 Nicotine dependence, unspecified, uncomplicated; F12.90 Cannabis use, unspecified, uncomplicated

== ENCOUNTER 2021-11-04 14:26 | Inpatient (IN) | payer MEDICARE ==
[~2021-11-04] VITALS: Ht 157.5 cm; Wt 54.4 kg
[~2021-11-04 14:26] MED LIST changes: -HALO5TA PO; +HALO5TAB33 PO; +INVE234I SC
[2021-11-04 17:45] LABS: HEMATOCRIT 44.9 % (42.0-52.0); HEMOGLOBIN 15.3 g/dl (13.5-17.5); MEAN CORPUSCULAR HEMOGLOBIN 30.7 pg (27.0-33.0); MEAN CORPUSCULAR HGB CONC 34.1 g/dl (32.0-36.5); PLATELET COUNT, AUTOMATED 194 10^3/uL (150-450); RED BLOOD COUNT 4.99 10^6/uL (4.30-6.10); WHITE BLOOD COUNT 8.6 10^3/uL (4.0-10.0)
[2021-11-04 18:13] LABS: AMPHETAMINES LEVEL URINE NEGATIVE (NEGATIVE); BARBITURATES URINE NEGATIVE (NEGATIVE); BENZODIAZEPINES URINE NEGATIVE (NEGATIVE); CANNABINOIDS URINE POSITIVE (NEGATIVE); COCAINE METABOLITE URINE NEGATIVE (NEGATIVE); METHADONE URINE NEGATIVE (NEGATIVE); OPIATES URINE NEGATIVE (NEGATIVE); PHENCYCLIDINE URINE NEGATIVE (NEGATIVE)
[2021-11-04 18:26] LABS: ACETAMINOPHEN LEVEL < 2.0 UG/ML (10.0-30.0); ALBUMIN 4.2 GM/DL (3.2-5.2); ALT/SGPT 46 U/L (12-78); BILIRUBIN,DIRECT 0.2 MG/DL (0.0-0.2); BILIRUBIN,TOTAL 0.6 MG/DL (0.2-1.0); BLOOD UREA NITROGEN 10 MG/DL (7-18); CALCIUM LEVEL 8.9 MG/DL (8.5-10.1); CARBON DIOXIDE LEVEL 29 MEQ/L (21-32); CHLORIDE LEVEL 105 MEQ/L (98-107); CREATININE FOR GFR 1.06 MG/DL (0.70-1.30); ETHYL ALCOHOL (ETHANOL) < 0.003 % (0.000-0.010); GLOMERULAR FILTRATION RATE > 60.0 (>60); GLUCOSE, FASTING 85 MG/DL (70-100); POTASSIUM SERUM 3.8 MEQ/L (3.5-5.1); SODIUM LEVEL 139 MEQ/L (136-145); TOTAL PROTEIN 7.8 GM/DL (6.4-8.2)
[2021-11-04] MEDS ORDERED: NICO21DI37 TD (19:10)
[2021-11-04] MEDS ORDERED: INVE234I IM (19:10)
[2021-11-04] MEDS ORDERED: HOME MED LIST COMPLETE! XX SCH (19:15)
[2021-11-06] MEDS ORDERED: MAALOX 30 ML SUSP *UDC PO PRN (13:35)
[2021-11-06] MEDS ORDERED: OLANZapine ORAL DISINTEGRATING TAB 5MG PO PRN (13:35)
[2021-11-06] MEDS ORDERED: MOM 30ML SUSPENSION UDC PO PRN (13:35)
[2021-11-06] MEDS ORDERED: ACETAMINOPHEN TAB 650MG DOSE (2X325MG) PO PRN (13:35)
[2021-11-06 15:36] VITALS: BP 129/74
[2021-11-06] MEDS: NICOTINE 21MG/24HR 1 EA TRANSDERMAL TD SCH (16:54)
[2021-11-06] MEDS ORDERED: PALIPERIDONE PALMITATE 234MG/1.5ML INJ (INVEGA)(FREE PSY INPT ONLY) IM ONE (17:00)
[2021-11-07 06:38] VITALS: BP 119/58
[2021-11-07] MEDS: NICOTINE 21MG/24HR 1 EA TRANSDERMAL TD SCH (09:22)
[2021-11-07 16:19] VITALS: BP 138/82
[2021-11-08 06:31] VITALS: BP 92/51
[2021-11-08] MEDS: NICOTINE 21MG/24HR 1 EA TRANSDERMAL TD SCH (09:39)
[2021-11-08 15:51] VITALS: BP 116/75
[2021-11-09 06:21] VITALS: BP 110/59
[2021-11-09] MEDS: NICOTINE 21MG/24HR 1 EA TRANSDERMAL TD SCH (09:37)
[2021-11-09 15:55] VITALS: BP 122/82
[2021-11-09 16:25] VITALS: BP 122/82
[2021-11-10 06:42] VITALS: BP 113/66
[2021-11-10] MEDS: NICOTINE 21MG/24HR 1 EA TRANSDERMAL TD SCH (08:05)
[2021-11-10] MEDS ORDERED: INVE234I IM (09:13)
== END 2021-11-10 14:00 | disposition home or self-care (01) | DRG 885 ==
LOC: M ED 14:26 → M ED INP 11-06 13:33 → M PSY 11-06 15:32
PROVIDERS: ADMIT Student in an Organized Health Care Education/Training Program; ATTEND Student in an Organized Health Care Education/Training Program
DX: F20.0 Paranoid schizophrenia (principal); U07.1 COVID-19; F17.200 Nicotine dependence, unspecified, uncomplicated; F12.10 Cannabis abuse, uncomplicated; F10.10 Alcohol abuse, uncomplicated; Z91.14 Patient's other noncompliance with medication regimen; Z79.899 Other long term (current) drug therapy

== ENCOUNTER 2022-11-24 11:28 | Emergency (ER) | payer MEDICARE ==
[~2022-11-24] VITALS: Ht 157.5 cm; Wt 47.7 kg
[~2022-11-24 11:28] MED LIST changes: -BENZ-52 PO; +BENZ1TAB5 PO; +NICO21DI37 TD
[2022-11-24 12:45] LABS: HEMATOCRIT 47.4 % (42.0-52.0); HEMOGLOBIN 15.9 g/dl (13.5-17.5); MEAN CORPUSCULAR HEMOGLOBIN 30.8 pg (27.0-33.0); MEAN CORPUSCULAR HGB CONC 33.5 g/dl (32.0-36.5); MEAN CORPUSCULAR VOLUME 91.7 fl (80.0-96.0); PLATELET COUNT, AUTOMATED 296 10^3/uL (150-450); RED BLOOD COUNT 5.17 10^6/uL (4.30-6.10)
[2022-11-24 12:58] LABS: AMPHETAMINES LEVEL URINE NEGATIVE (NEGATIVE); BARBITURATES URINE NEGATIVE (NEGATIVE); BENZODIAZEPINES URINE NEGATIVE (NEGATIVE); COCAINE METABOLITE URINE NEGATIVE (NEGATIVE)
[2022-11-24 12:59] LABS: METHADONE URINE NEGATIVE (NEGATIVE); OPIATES URINE NEGATIVE (NEGATIVE); PHENCYCLIDINE URINE NEGATIVE (NEGATIVE)
[2022-11-24 13:01] LABS: ETHYL ALCOHOL (ETHANOL) 0.006 % (0.000-0.010)
[2022-11-24 13:02] LABS: ACETAMINOPHEN LEVEL < 2.0 UG/ML (10.0-20.0); SALICYLATE LEVEL < 3.0 MG/DL (<30)
[2022-11-24 13:07] LABS: CANNABINOIDS URINE POSITIVE (NEGATIVE)
[2022-11-24 15:13] LABS: ALBUMIN 4.1 G/DL (3.2-5.2); ALKALINE PHOSPHATASE 60 U/L (46-116); ALT/SGPT 12 U/L (7.0-40); AST/SGOT 23 U/L (<34); BILIRUBIN,DIRECT 0.1 MG/DL (<0.4); BILIRUBIN,TOTAL 0.4 MG/DL (0.3-1.2); BLOOD UREA NITROGEN 9 MG/DL (9-23); CALCIUM LEVEL 9.2 MG/DL (8.5-10.1); CARBON DIOXIDE LEVEL 28 MMOL/L (20-31); CHLORIDE LEVEL 104 MMOL/L (98-107); GLUCOSE, FASTING 95 MG/DL (60-100); SODIUM LEVEL 139 MMOL/L (136-145); TOTAL PROTEIN 7.7 G/DL (5.7-8.2)
[2022-11-24 15:50] VITALS: BP 132/80
[2022-11-24 19:50] LABS: CREATININE FOR GFR 0.84 MG/DL (0.70-1.30); GLOMERULAR FILTRATION RATE > 60.0 (>60)
== END 2022-11-24 15:54 | disposition home or self-care (01) ==
LOC: M ED 11:28
DX: F20.9 Schizophrenia, unspecified (principal); F12.10 Cannabis abuse, uncomplicated; F17.200 Nicotine dependence, unspecified, uncomplicated

== ENCOUNTER → 2024-02-15 | Outpatient (CLI) | payer MEDICAID, MEDICARE ==
[2024-02-15 12:49] LABS: BASO % 0.4 % (0.0-1.0); EOS % 0.2 % (0.0-3.0); HEMATOCRIT 49.7 % (42.0-52.0); HEMOGLOBIN 17.1 g/dl (13.5-17.5); LYMPH # 3.1 10^3/uL (1.5-5.0); LYMPH % 37.2 % (24.0-44.0); MEAN CORPUSCULAR HGB CONC 34.4 g/dl (32.0-36.5); MONO # 0.5 10^3/uL (0.0-0.8); MONO % 6.2 % (2.0-8.0); NEUTROPHILS # 4.6 10^3/uL (1.5-8.5); NEUTROPHILS % 55.9 % (36.0-66.0); PLATELET COUNT, AUTOMATED 256 10^3/uL (150-450); RED BLOOD COUNT 5.52 10^6/uL (4.30-6.10); WHITE BLOOD COUNT 8.3 10^3/uL (4.0-10.0)
[2024-02-15 13:29] LABS: ALBUMIN 4.1 G/DL (3.2-5.2); ALKALINE PHOSPHATASE 59 U/L (46-116); ALT/SGPT 13 U/L (7.0-40); AST/SGOT 19 U/L (<34); BILIRUBIN,TOTAL 0.5 MG/DL (0.3-1.2); BLOOD UREA NITROGEN 7 MG/DL (9-23); CALCIUM LEVEL 9.7 MG/DL (8.5-10.1); CARBON DIOXIDE LEVEL 28 MMOL/L (20-31); CHLORIDE LEVEL 105 MMOL/L (98-107); CREATININE FOR GFR 0.88 MG/DL (0.70-1.30); GLOMERULAR FILTRATION RATE > 60.0 (>60); GLUCOSE, FASTING 98 MG/DL (60-100); POTASSIUM SERUM 4.5 MMOL/L (3.5-5.1); SODIUM LEVEL 137 MMOL/L (136-145); TOTAL PROTEIN 7.4 G/DL (5.7-8.2)
[2024-02-15 13:31] LABS: VITAMIN B12 LEVEL 554 PG/ML (211-911)
[2024-02-15 13:36] LABS: FOLATE 17.13 NG/ML (>5.4)
== END ==
LOC: M LAB 11:48
PROVIDERS: ATTEND Student in an Organized Health Care Education/Training Program
DX: F20.9 Schizophrenia, unspecified (principal); Z79.899 Other long term (current) drug therapy

== ENCOUNTER 2025-09-25 13:05 | Emergency (ER) | payer MEDICARE ==
[~2025-09-25] VITALS: Ht 157.5 cm; Wt 47.7 kg
[~2025-09-25 13:05] MED LIST changes: -OLAN20TA14 PO; +OLAN20TA53 PO; +RISP-39 PO; -RISP3TAB20 PO
[2025-09-25 13:27] VITALS: BP 118/72; TEMP 98.6; O2SAT 98
[2025-09-25 14:21] LABS: PLATELET COUNT, AUTOMATED 262 10^3/uL (150-450)
[2025-09-25 14:38] LABS: AMPHETAMINES LEVEL URINE NEGATIVE (NEGATIVE); BARBITURATES URINE NEGATIVE (NEGATIVE); BENZODIAZEPINES URINE NEGATIVE (NEGATIVE); COCAINE METABOLITE URINE NEGATIVE (NEGATIVE)
[2025-09-25 14:39] LABS: CANNABINOIDS URINE NEGATIVE (NEGATIVE); METHADONE URINE NEGATIVE (NEGATIVE); OPIATES URINE NEGATIVE (NEGATIVE); PHENCYCLIDINE URINE NEGATIVE (NEGATIVE)
[2025-09-25 14:39] LABS: ETHYL ALCOHOL (ETHANOL) < 0.003 % (0.000-0.010)
[2025-09-25 14:41] LABS: ALT/SGPT 12 U/L (7.0-40); AST/SGOT 21 U/L (<34); CALCIUM LEVEL 8.6 MG/DL (8.5-10.1); CARBON DIOXIDE LEVEL 30 MMOL/L (20-31); CHLORIDE LEVEL 106 MMOL/L (98-107); CK-MB VALUE MASS 1.5 NG/ML (<3.6); CPK CREATINE PHOSPHOKINASE 116 U/L (46-171); CREATININE FOR GFR 0.94 MG/DL (0.70-1.30); GLOMERULAR FILTRATION RATE > 90.0 (>60); MB/CK RELATIVE INDEX 1.29 (< OR =4); POTASSIUM SERUM 3.9 MMOL/L (3.5-5.1); SALICYLATE LEVEL < 3.0 MG/DL (<30); SODIUM LEVEL 139 MMOL/L (136-145)
== END 2025-09-25 14:54 | disposition left against medical advice (07) ==
LOC: M ED 13:05 → EDBD 13:05 → M ED 14:54
DX: R06.02 Shortness of breath (principal); Z53.9 Procedure and treatment not carried out, unspecified reason; F20.9 Schizophrenia, unspecified; F17.200 Nicotine dependence, unspecified, uncomplicated; Z79.899 Other long term (current) drug therapy